=== PATIENT | male | born 1980 | race African-American/Black ===

== ENCOUNTER 2017-10-22 22:35 | Emergency (ER) | payer OTHER, SELFPAY ==
--- NOTE | 2017-10-22 23:49 | ER ---
Nurse's Notes [facility] Name: Lawrence Orellana Age: 37 yrs Sex: Male : 1980 Arrival Date: 10/22/2017 Time: 22:38 Bed 14 Private MD: Diagnosis: Periapical abscess without sinus;Dentalgia Presentation: 10/22 22:49 Presenting complaint: Patient states: left lower back tooth pain X3 weeks with ak1 increased pain today. Transition of care: patient was not received from another setting of care. Onset of symptoms is unknown. Risk Assessment: Do you want to hurt yourself or someone else? Patient reports no desire to harm self or others. Initial Sepsis Screen: Does the patient meet any 2 criteria? No. Patient's initial sepsis screen is negative. Does the patient have a suspected source of infection? No. Patient's initial sepsis screen is negative. Care prior to arrival: None. 22:49 Acuity: NEHA 4 ak1 22:49 Method Of Arrival: Ambulatory ak1 Triage Assessment: 22:50 General: Appears in no apparent distress. Behavior is calm, cooperative. Pain: ak1 Complains of pain in mouth. EENT: Dental caries noted in lower left third molar (#17) and lower left second molar (#18) Reports pain in lower left third molar and lower left second molar. Neuro: No deficits noted. Cardiovascular: No deficits noted. Respiratory: No deficits noted. GI: No signs and/or symptoms were reported involving the gastrointestinal system. : No signs and/or symptoms were reported regarding the genitourinary system. Derm: No signs and/or symptoms reported regarding the dermatologic system. Musculoskeletal: No signs and/or symptoms reported regarding the musculoskeletal system. Historical: - Allergies: 22:50 PENICILLINS; ak1 - Home Meds: 22:50 None [Active]; ak1 - PMHx: 22:50 None; ak1 - PSHx: 22:50 Ankle Surgery Left; Knee - Right; ak1 - Immunization history:: Adult Immunizations unknown. - Social history:: Smoking status: Patient/guardian denies using tobacco. - Ebola Screening: : No symptoms or risks identified at this time. Screenin:51 Abuse screen: Denies threats or abuse. Denies injuries from another. Nutritional ak1 screening: No deficits noted. Tuberculosis screening: No symptoms or risk factors identified. Fall Risk None identified. Assessment: 22:52 Reassessment: Patient appears in no apparent distress at this time. No changes from ak1 previously documented assessment. Patient is alert, oriented x 3, equal unlabored respirations, skin warm/dry/pink. see triage assessment. Vital Signs: 22:48 BP 124 / 72; Pulse 66; Resp 16; Temp 98.1(O); Pulse Ox 99% on R/A; Weight 92.08 kg (R); ak1 Height 5 ft. 7 in. (170.18 cm) (R); Pain 10/10; 22:48 Body Mass Index 31.79 (92.08 kg, 170.18 cm) ak1 ED Course: 22:38 Patient arrived in ED. tahir 22:44 Rey Alexander PA is PHCP. jrRolando 22:44 Best Quiroga MD is Attending Physician. jr8 22:48 Kayla Angel RN is Primary Nurse. ak1 22:49 Triage completed. ak1 22:50 Arm band placed on Patient placed in an exam room, on a stretcher, on pulse oximetry, ak1 Patient notified of wait time. 22:52 Patient has correct armband on for positive identification. Bed in low position. Call ak1 light in reach. Side rails up X 1. Pulse ox on. NIBP on. 23:57 No provider procedures requiring assistance completed. Patient did not have IV access ak1 during this emergency room visit. Administered Medications: 23:57 Drug: TORadol 60 mg Route: IM; Site: right deltoid; ak1 23:57 Follow up: Response: No adverse reaction ak1 Outcome: 23:48 Discharge ordered by . jr8 23:57 Discharged to home ambulatory. ak1 23:57 Condition: good 23:57 Discharge instructions given to patient, Instructed on discharge instructions, follow up and referral plans. no drinking with medication, no driving heavy equipment, medication usage, Demonstrated understanding of instructions, follow-up care, medications, Prescriptions given X 3. 23:58 Patient left the ED. ak1 Signatures: Shabnam Judge Josh, PA PA jrKayla Lugo, RN RN ak1
--- NOTE | 2017-10-22 23:49 | EDPHYS ---
Physician Documentation [facility] Name: Lawrence Orellana Age: 37 yrs Sex: Male : 1980 Arrival Date: 10/22/2017 Time: 22:38 Bed 14 Private MD: ED Physician Best Quiroga HPI: 10/22 23:45 This 37 yrs old Black Male presents to ER via Ambulatory with complaints of Toothache. jr8 23:45 The patient presents with pain. The problem is located in the upper left third molar jr8 (#16). Onset: The symptoms/episode began/occurred acutely, today. Duration: The symptoms are continuous. Modifying factors: The symptoms are alleviated by nothing, the symptoms are aggravated by air, chewing, cold fluids, talking. Associated signs and symptoms: The patient has no apparent associated signs or symptoms. Severity of symptoms: At their worst the symptoms were moderate, in the emergency department the symptoms are unchanged. The patient has not experienced similar symptoms in the past. The patient has not recently seen a physician. Historical: - Allergies: 22:50 PENICILLINS; ak1 - Home Meds: 22:50 None [Active]; ak1 - PMHx: 22:50 None; ak1 - PSHx: 22:50 Ankle Surgery Left; Knee - Right; ak1 - Immunization history:: Adult Immunizations unknown. - Social history:: Smoking status: Patient/guardian denies using tobacco. - Ebola Screening: : No symptoms or risks identified at this time. ROS: 23:45 Eyes: Negative for injury, pain, redness, and discharge, Neck: Negative for injury, jr8 pain, and swelling, Cardiovascular: Negative for chest pain, palpitations, and edema, Respiratory: Negative for shortness of breath, cough, wheezing, and pleuritic chest pain, Abdomen/GI: Negative for abdominal pain, nausea, vomiting, diarrhea, and constipation, Back: Negative for injury and pain, MS/Extremity: Negative for injury and deformity, Skin: Negative for injury, rash, and discoloration, Neuro: Negative for headache, weakness, numbness, tingling, and seizure. 23:45 ENT: Positive for dental pain, Negative for drainage from ear(s), ear pain, nasal discharge, rhinorrhea, sinus congestion, sore throat, difficulty swallowing, difficulty handling secretions, hoarseness. Exam: 23:44 Head/Face: Normocephalic, atraumatic. Eyes: Pupils equal round and reactive to light, jr8 extra-ocular motions intact. Lids and lashes normal. Conjunctiva and sclera are non-icteric and not injected. Cornea within normal limits. Periorbital areas with no swelling, redness, or edema. Neck: Trachea midline, no thyromegaly or masses palpated, and no cervical lymphadenopathy. Supple, full range of motion without nuchal rigidity, or vertebral point tenderness. No Meningismus. Cardiovascular: Regular rate and rhythm with a normal S1 and S2. No gallops, murmurs, or rubs. Normal PMI, no JVD. No pulse deficits. Respiratory: Lungs have equal breath sounds bilaterally, clear to auscultation and percussion. No rales, rhonchi or wheezes noted. No increased work of breathing, no retractions or nasal flaring. Abdomen/GI: Soft, non-tender, with normal bowel sounds. No distension or tympany. No guarding or rebound. No evidence of tenderness throughout. Skin: Warm, dry with normal turgor. Normal color with no rashes, no lesions, and no evidence of cellulitis. MS/ Extremity: Pulses equal, no cyanosis. Neurovascular intact. Full, normal range of motion. Neuro: Awake and alert, GCS 15, oriented to person, place, time, and situation. Cranial nerves II-XII grossly intact. Motor strength 5/5 in all extremities. Sensory grossly intact. Cerebellar exam normal. Normal gait. 23:44 ENT: Exam is negative for earache, ear discharge, TM abnormalities, nasal discharge, Mouth: Lips: moist, Oral mucosa: pink and intact, moist, Gums: pink, Tongue: is moist, Posterior pharynx: Airway: patent, Tonsils: are normal in appearance, Uvula: midline, swelling, is not appreciated, Dental exam: pain, that is moderate, specifically in the upper left third molar (#16). Vital Signs: 22:48 BP 124 / 72; Pulse 66; Resp 16; Temp 98.1(O); Pulse Ox 99% on R/A; Weight 92.08 kg (R); ak1 Height 5 ft. 7 in. (170.18 cm) (R); Pain 10/10; 22:48 Body Mass Index 31.79 (92.08 kg, 170.18 cm) ak1 MDM: 22:44 Patient medically screened. jr8 23:45 Data reviewed: vital signs, nurses notes, and as a result, I will discharge patient. jr8 Data interpreted: Pulse oximetry: on room air is 99 %. Interpretation: normal. Counseling: I had a detailed discussion with the patient and/or guardian regarding: the historical points, exam findings, and any diagnostic results supporting the discharge/admit diagnosis, the need for outpatient follow up, a dentist, to return to the emergency department if symptoms worsen or persist or if there are any questions or concerns that arise at home. Administered Medications: 23:57 Drug: TORadol 60 mg Route: IM; Site: right deltoid; ak1 23:57 Follow up: Response: No adverse reaction ak1 Disposition: 10/23 00:13 Co-signature as Attending Physician, Best Quiroga MD I agree with the assessment and kdr plan of care. Disposition: 10/22/17 23:48 Discharged to Home. Impression: Periapical abscess without sinus, Dentalgia. - Condition is Stable. - Discharge Instructions: Dental Abscess, Dental Pain. - Prescriptions for Clindamycin HCl 300 mg Oral Capsule - take 1 capsule by ORAL route every 6 hours for 10 days; 40 capsule. Ibuprofen 800 mg Oral Tablet - take 1 tablet by ORAL route every 12 hours As needed take with food; 20 tablet. Tylenol- Codeine #3 300-30 mg Oral Tablet - take 2 tablet by ORAL route every 6 hours As needed; 30 tablet. - Medication Reconciliation Form, Thank You Letter, Antibiotic Education, Prescription Opioid Use, Work release form form. - Follow up: Private Physician; When: 2 - 3 days; Reason: Recheck today's complaints, Continuance of care, Re-evaluation by your physician. - Problem is new. - Symptoms have improved. Signatures: Best Quiroga MD MD kdr Roszak, Josh, PA PA jr8 Kayla Angel RN RN ak1 Corrections: (The following items were deleted from the chart) 10/22 23:58 23:48 10/22/2017 23:48 Discharged to Home. Impression: Periapical abscess without ak1 sinus; Dentalgia. Condition is Stable. Forms are Medication Reconciliation Form, Thank You Letter, Antibiotic Education, Prescription Opioid Use. Follow up: Private Physician; When: 2 - 3 days; Reason: Recheck today's complaints, Continuance of care, Re-evaluation by your physician. Problem is new. Symptoms have improved. jr8
[2017-10-22] MEDS ORDERED: KETOROLAC 30 MG/ML INJ ONE (23:57)
[2017-10-23 00:30] VITALS: BP 124/72; TEMP 98.1; O2SAT 99
== END 2017-10-22 23:58 | disposition home or self-care (01) ==
LOC: ER 22:35
DX: K04.7 Periapical abscess without sinus (principal); Z88.0 Allergy status to penicillin
CPT/HCPCS: 96372; 99283

== ENCOUNTER 2018-03-21 23:28 | Emergency (ER) | payer BC, SELFPAY ==
--- OUTSIDE RECORDS SUMMARY | 2018-03-21 23:58 | XMS REPORT ---
:1980 [facility] Address [address] [place] [address] Dr. Talavera [address] [place] [id number] Care Team Providers Name Role Phone Unavailable Unavailable Unavailable Problems This patient has no known problems. Allergies, Adverse Reactions, Alerts This patient has no known allergies or adverse reactions. Medications This patient has no known medications.
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
[2018-03-22 02:09] VITALS: BP 121/63; TEMP 97.6; O2SAT 98
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
== END 2018-03-22 01:26 | disposition home or self-care (01) ==
LOC: ER 23:28
DX: S09.90XA Unspecified injury of head, initial encounter (principal); V40.5XXA Car driver injured in collision with pedestrian or animal in traffic accident, initial encounter; Z88.0 Allergy status to penicillin
CPT/HCPCS: 70450; 72125; 99283

== ENCOUNTER 2018-07-27 02:21 | Emergency (ER) | payer BC, SELFPAY ==
--- OUTSIDE RECORDS SUMMARY | 2018-07-27 02:24 | XMS REPORT ---
:1980 [facility] Address [address] [place] [address] Dr. Talavera [address] [place] [id number] Care Team Providers Name Role Phone Unavailable Unavailable Unavailable Problems This patient has no known problems. Allergies, Adverse Reactions, Alerts This patient has no known allergies or adverse reactions. Medications This patient has no known medications.
--- NOTE | 2018-07-27 03:14 | EDPHYS ---
Physician Documentation [facility] Name: Lawrence Orellana Age: 38 yrs Sex: Male : 1980 Arrival Date: 07/27/2018 Time: 02:23 Bed 5 Private MD: ED Physician Shlomo Munoz HPI: 07/27 03:14 This 38 yrs old Black Male presents to ER via Ambulatory with complaints of Back Pain. gs 03:17 The patient presents with pain that is acute. The symptoms are located in the left gs scapular area and right scapular area. Onset: The symptoms/episode began/occurred 4 day(s) ago. The pain does not radiate. Associated signs and symptoms: Pertinent negatives: incontinence, numbness. The problem was sustained when lifting weights. Modifying factors: the patient symptoms are aggravated by movement. Severity of symptoms: At their worst the symptoms were moderate, in the emergency department the symptoms are unchanged. The patient has experienced similar episodes in the past, a few times. Historical: - Allergies: 02:33 PENICILLINS; ak1 - Home Meds: 02:33 None [Active]; ak1 - PMHx: 02:33 None; ak1 - PSHx: 02:33 left ankle sx; ak1 - Immunization history:: Adult Immunizations unknown. - Social history:: Smoking status: Patient/guardian denies using tobacco. - Ebola Screening: : No symptoms or risks identified at this time. ROS: 03:17 All other systems are negative. gs Exam: 03:17 Head/Face: Normocephalic, atraumatic. Eyes: Pupils equal round and reactive to light, gs extra-ocular motions intact. Lids and lashes normal. Conjunctiva and sclera are non-icteric and not injected. Cornea within normal limits. Periorbital areas with no swelling, redness, or edema. ENT: Nares patent. No nasal discharge, no septal abnormalities noted. Tympanic membranes are normal and external auditory canals are clear. Oropharynx with no redness, swelling, or masses, exudates, or evidence of obstruction, uvula midline. Mucous membranes moist. Neck: Trachea midline, no thyromegaly or masses palpated, and no cervical lymphadenopathy. Supple, full range of motion without nuchal rigidity, or vertebral point tenderness. No Meningismus. Chest/axilla: Normal chest wall appearance and motion. Nontender with no deformity. No lesions are appreciated. Cardiovascular: Regular rate and rhythm with a normal S1 and S2. No gallops, murmurs, or rubs. Normal PMI, no JVD. No pulse deficits. Respiratory: Lungs have equal breath sounds bilaterally, clear to auscultation and percussion. No rales, rhonchi or wheezes noted. No increased work of breathing, no retractions or nasal flaring. Abdomen/GI: Soft, non-tender, with normal bowel sounds. No distension or tympany. No guarding or rebound. No evidence of tenderness throughout. Skin: Warm, dry with normal turgor. Normal color with no rashes, no lesions, and no evidence of cellulitis. MS/ Extremity: Pulses equal, no cyanosis. Neurovascular intact. Full, normal range of motion. Neuro: Awake and alert, GCS 15, oriented to person, place, time, and situation. Cranial nerves II-XII grossly intact. Motor strength 5/5 in all extremities. Sensory grossly intact. Cerebellar exam normal. Normal gait. 03:17 Constitutional: The patient appears alert, awake. 03:17 Back: pain, that is mild, of the left trapezius and right trapezius, ROM is normal. Vital Signs: 02:31 BP 122 / 84; Pulse 69; Resp 16; Temp 98.1; Pulse Ox 99% on R/A; Weight 94.8 kg (R); ak1 Height 5 ft. 8 in. (172.72 cm) (R); Pain 10/10; 02:31 Body Mass Index 31.78 (94.80 kg, 172.72 cm) ak1 MDM: 02:36 Patient medically screened. 03:17 Differential diagnosis: sprain. Data reviewed: vital signs, nurses notes. Counseling: I gs had a detailed discussion with the patient and/or guardian regarding: the historical points, exam findings, and any diagnostic results supporting the discharge/admit diagnosis. Administered Medications: No medications were administered Disposition: 07/27/18 03:13 Discharged to Home. Impression: Encounter for screening, unspecified. - Condition is Stable. - Medication Reconciliation Form, Thank You Letter, Antibiotic Education, Prescription Opioid Use form. - Follow up: Private Physician; When: 2 - 3 days; Reason: Re-evaluation by your physician. Signatures: Beba Zhao RN RN lp1 Kayla Angel RN RN ak1 Shlomo Munoz MD MD gs Corrections: (The following items were deleted from the chart) 03:25 03:13 07/27/2018 03:13 Discharged to Home. Impression: Encounter for screening, lp1 unspecified. Condition is Stable. Forms are Medication Reconciliation Form, Thank You Letter, Antibiotic Education, Prescription Opioid Use. Follow up: Private Physician; When: 2 - 3 days; Reason: Re-evaluation by your physician. gs
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
[2018-07-27 03:33] VITALS: BP 122/84; TEMP 98.1; O2SAT 99
== END 2018-07-27 03:25 | disposition home or self-care (01) ==
LOC: ER 02:21
DX: M54.6 Pain in thoracic spine (principal); Z13.9 Encounter for screening, unspecified; Z88.0 Allergy status to penicillin
CPT/HCPCS: 99282

== ENCOUNTER 2018-11-25 03:22 | Emergency (ER) | payer SELFPAY ==
[2018-11-25] MEDS ORDERED: TETRACAINE HCL 0.5% 4ML OPTH ONE (03:30)
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
[2018-11-25 04:30] VITALS: BP 103/76; TEMP 97.4; O2SAT 100
== END 2018-11-25 04:07 | disposition home or self-care (01) ==
LOC: ER 03:22
DX: H57.13 Ocular pain, bilateral (principal); W89.0XXA Exposure to welding light (arc), initial encounter; Z88.0 Allergy status to penicillin
CPT/HCPCS: 99284

== ENCOUNTER 2020-03-27 14:25 | Emergency (ER) | payer SELFPAY ==
--- NOTE | 2020-03-27 20:29 | EDPHYS ---
Physician Documentation [facility] Name: Lawrence Orellana Age: 40 yrs Sex: Male : 1980 Arrival Date: 03/27/2020 Time: 14:27 Bed 30 Private MD: ED Physician Maynor Carmona HPI: 03/27 20:26 This 40 yrs old Black Male presents to ER via Ambulatory with complaints of Poison Allison. rn 20:26 The patient's rash thought to be caused by Dermatitis. The rash is located on the face, rn chest, abdomen, right arm and left arm. The rash can be described as urticarial. Onset: The symptoms/episode began/occurred 2 week(s) ago. Severity of symptoms: At their worst the symptoms were moderate in the emergency department the symptoms have improved. The patient has not experienced similar symptoms in the past. The patient has been recently seen by a physician:. Reports seen and treated for poison allison rash 2 weeks ago, given shot of steroids that helped but did not resolve, still itching and rash present. No sob or chest pain. . Historical: - Allergies: 14:49 PENICILLINS; jd3 - Home Meds: 14:49 None [Active]; jd3 - PMHx: 14:49 None; jd3 - PSHx: 14:49 left ankle sx; jd3 - Immunization history:: Adult Immunizations up to date. - Social history:: Smoking status: Patient denies any tobacco usage or history of. - Family history:: not pertinent. - Hospitalizations: : No recent hospitalization is reported. ROS: 20:26 Constitutional: Negative for fever, chills, and weight loss, Eyes: Negative for injury, rn pain, redness, and discharge, Neck: Negative for injury, pain, and swelling, Cardiovascular: Negative for chest pain, palpitations, and edema, Respiratory: Negative for shortness of breath, cough, wheezing, and pleuritic chest pain, Abdomen/GI: Negative for abdominal pain, nausea, vomiting, diarrhea, and constipation, Back: Negative for injury and pain, MS/Extremity: Negative for injury and deformity, Skin: + rash and itching Neuro: Negative for headache, weakness, numbness, tingling, and seizure. Exam: 20:26 Constitutional: This is a well developed, well nourished patient who is awake, alert, rn and in no acute distress. Head/Face: Normocephalic, atraumatic. ENT: No intraoral lesions Cardiovascular: Regular rate and rhythm. No pulse deficits. Respiratory: No increased work of breathing, no retractions or nasal flaring. Skin: Warm, dry, + very mild urticarial lesions lower face and neck/arms/torso MS/ Extremity: Pulses equal, no cyanosis. Neurovascular intact. Full, normal range of motion. Equal circumference. Neuro: Awake and alert, GCS 15, oriented to person, place, time, and situation. Cranial nerves II-XII grossly intact. Motor strength 5/5 in all extremities. Sensory grossly intact. Cerebellar exam normal. Normal gait. Vital Signs: 14:49 BP 138 / 96; Pulse 93; Resp 16 S; Temp 98.0(TE); Pulse Ox 99% on R/A; Weight 104.33 kg jd3 (R); Height 5 ft. 8 in. (172.72 cm) (R); Pain 0/10; 14:49 Body Mass Index 34.97 (104.33 kg, 172.72 cm) jd3 MDM: 20:20 Patient medically screened. rn 20:26 Differential diagnosis: poison allison dermatitis. Data reviewed: vital signs, nurses rn notes, and as a result, I will discharge patient. Counseling: I had a detailed discussion with the patient and/or guardian regarding: the historical points, exam findings, and any diagnostic results supporting the discharge/admit diagnosis, the need for outpatient follow up, to return to the emergency department if symptoms worsen or persist or if there are any questions or concerns that arise at home. Special discussion: I discussed with the patient/guardian in detail that at this point there is no indication for admission to the hospital. It is understood, however, that if the symptoms persist or worsen the patient needs to return immediately for re-evaluation. Administered Medications: 20:32 Drug: SOLU-Medrol 125 mg Route: IM; Site: right gluteus; tl1 20:38 Follow up: Response: Medication administered at discharge. tl1 20:32 Drug: hydrOXYzine 50 mg Route: PO; tl1 20:38 Follow up: Response: Medication administered at discharge. tl1 Disposition: 03/27/20 20:29 Discharged to Home. Impression: Dermatitis, unspecified. - Condition is Stable. - Discharge Instructions: Poison Allison Dermatitis, Rash. - Prescriptions for Prednisone 20 mg Oral Tablet - take 1 tablet by ORAL route as directed for 10 days Take 3 tablets by mouth daily for 5 days, then 2 tablets by mouth daily for 3 days, then 1 tablet by mouth daily for 2 days, total of 10 days.; 23 tablet. Hydroxyzine HCl 50 mg Oral Tablet - take 1 tablet by ORAL route every 8 hours As needed; 20 tablet. - Medication Reconciliation Form, Thank You Letter, Antibiotic Education, Prescription Opioid Use form. - Follow up: Private Physician; When: As needed; Reason: Recheck today's complaints, Re-evaluation by your physician. - Problem is new. - Symptoms have improved. Signatures: Maynor Carmona MD MD rn Lasagna, Tonya, RN RN tl1 Kodak Alva RN RN jd3 Corrections: (The following items were deleted from the chart) 20:41 20:29 03/27/2020 20:29 Discharged to Home. Impression: Dermatitis, unspecified. tl1 Condition is Stable. Forms are Medication Reconciliation Form, Thank You Letter, Antibiotic Education, Prescription Opioid Use. Follow up: Private Physician; When: As needed; Reason: Recheck today's complaints, Re-evaluation by your physician. Problem is new. Symptoms have improved. rn
--- NOTE | 2020-03-27 20:29 | ER ---
Nurse's Notes [facility] Name: Lawrence Orellana Age: 40 yrs Sex: Male : 1980 Arrival Date: 03/27/2020 Time: 14:27 Bed 30 Private MD: Diagnosis: Dermatitis, unspecified Presentation: 03/27 14:47 Chief complaint: Patient states: "I had gotten into some poison oak and was given some jd3 prednisone, but I think I might be allergic to the poison oak because my hands are swollen and it is itching still.". Coronavirus screen: At this time, the client does not indicate any symptoms associated with coronavirus-19. Ebola Screen: Patient negative for fever greater than or equal to 101.5 degrees Fahrenheit, and additional compatible Ebola Virus Disease symptoms. Initial Sepsis Screen: Does the patient meet any 2 criteria? No. Patient's initial sepsis screen is negative. Does the patient have a suspected source of infection? No. Patient's initial sepsis screen is negative. Risk Assessment: Do you want to hurt yourself or someone else? Patient reports no desire to harm self or others. Onset of symptoms was March 21, 2020. 14:47 Method Of Arrival: Ambulatory jd3 14:47 Acuity: NEHA 4 jd3 Historical: - Allergies: 14:49 PENICILLINS; jd3 - Home Meds: 14:49 None [Active]; jd3 - PMHx: 14:49 None; jd3 - PSHx: 14:49 left ankle sx; jd3 - Immunization history:: Adult Immunizations up to date. - Social history:: Smoking status: Patient denies any tobacco usage or history of. - Family history:: not pertinent. - Hospitalizations: : No recent hospitalization is reported. Screenin:26 Abuse screen: Denies threats or abuse. Denies injuries from another. Nutritional sg screening: No deficits noted. Tuberculosis screening: No symptoms or risk factors identified. Fall Risk None identified. Assessment: 20:25 General: Appears in no apparent distress. comfortable, Behavior is calm, cooperative, sg appropriate for age. Pain: Denies pain. Neuro: No deficits noted. Cardiovascular: Reports None. Respiratory: Airway is patent Trachea midline. GI: No signs and/or symptoms were reported involving the gastrointestinal system. : No signs and/or symptoms were reported regarding the genitourinary system. EENT: No signs and/or symptoms were reported regarding the EENT system. Derm: Rash noted that is urticaria, on face, chest, right arm, left arm and neck. Vital Signs: 14:49 BP 138 / 96; Pulse 93; Resp 16 S; Temp 98.0(TE); Pulse Ox 99% on R/A; Weight 104.33 kg jd3 (R); Height 5 ft. 8 in. (172.72 cm) (R); Pain 0/10; 14:49 Body Mass Index 34.97 (104.33 kg, 172.72 cm) jd3 ED Course: 14:27 Patient arrived in ED. rg4 14:48 Triage completed. jd3 14:50 Arm band placed on. jd3 20:20 Maynor Carmona MD is Attending Physician. rn 20:26 No provider procedures requiring assistance completed. Patient did not have IV access sg during this emergency room visit. 20:40 Kailey Kingsley RN is Primary Nurse. tl1 20:40 Patient has correct armband on for positive identification. tl1 Administered Medications: 20:32 Drug: SOLU-Medrol 125 mg Route: IM; Site: right gluteus; tl1 20:38 Follow up: Response: Medication administered at discharge. tl1 20:32 Drug: hydrOXYzine 50 mg Route: PO; tl1 20:38 Follow up: Response: Medication administered at discharge. tl1 Outcome: 20:29 Discharge ordered by . rn 20:40 Discharged to home ambulatory. tl1 20:40 Condition: good 20:40 Discharge instructions given to patient, Instructed on discharge instructions, follow up and referral plans. medication usage, Demonstrated understanding of instructions, follow-up care, medications, Prescriptions given X 2. 20:41 Patient left the ED. tl1 Signatures: Indra Tamez RN RN Maynor Carmona MD MD rn Lasagna, Tonya, RN RN tl1 Ana Blanco rg4 Kodak Alva RN RN jd3 Corrections: (The following items were deleted from the chart) 14:49 14:47 Chief complaint: Patient states: "I had gotten into some poison oak and was given jd3 some prednisone, but I think I might be allergic because my hands are swollen and it is itching." jd3 14:50 14:47 Acuity: NEHA 3 jd3 jd3
[2020-03-27] MEDS ORDERED: METHYLPREDNISOLONE 125 MG INJ ONE (20:45)
[2020-03-27] MEDS ORDERED: hydrOXYzine HCL 25 MG TAB ONE (20:45)
[2020-03-27 20:47] VITALS: BP 138/96; TEMP 98; O2SAT 99
== END 2020-03-27 20:41 | disposition home or self-care (01) ==
LOC: ER 14:25
DX: L30.9 Dermatitis, unspecified (principal)
CPT/HCPCS: 96372; 99283; J2930

== ENCOUNTER 2020-07-30 20:44 | Emergency (ER) | payer SELFPAY ==
--- OUTSIDE RECORDS SUMMARY | 2020-07-30 20:47 | XMS REPORT | Continuity of Care Document ---
:1980 Author Organization [facility] t Address [address] [place] [address] Dr. Yanes. [address] [place] [id number] Care Team Providers Name Role Phone Ary CHILDERS Attending Clinician Problems This patient has no known problems. Allergies, Adverse Reactions, Alerts This patient has no known allergies or adverse reactions. Medications This patient has no known medications. Procedures This patient has no known procedures. Encounters Start End Encounter Admission Attending Care Care Encounter Source Date/Time Date/Time Type Type Clinicians Facility Department ID 2020-07-08 2020-07-08 Emergency [facility] [id number] 10:49:00 12:02:00 Michelle Son [id number] [place] [id number] [place] [id number] Results This patient has no known results.
[2020-07-30] MEDS ORDERED: HYDROCODONE/APAP 10/325 TAB ONE (21:36)
--- NOTE | 2020-07-30 22:45 | ER ---
Nurse's Notes [facility] Name: Lawrence Orellana Age: 40 yrs Sex: Male : 1980 Arrival Date: 07/30/2020 Time: 20:46 Bed 13 Private MD: Diagnosis: Low back pain Presentation: 07/30 21:04 Chief complaint: Patient states: I hurt my back 3 weeks ago and it's getting worse. ca1 It's my lower back. Coronavirus screen: Client denies travel out of the [place] in the last 14 days. At this time, the client does not indicate any symptoms associated with coronavirus-19. Ebola Screen: Patient negative for fever greater than or equal to 101.5 degrees Fahrenheit, and additional compatible Ebola Virus Disease symptoms Patient denies exposure to infectious person. Patient denies travel to an Ebola-affected area in the 21 days before illness onset. No symptoms or risks identified at this time. Initial Sepsis Screen: Does the patient meet any 2 criteria? No. Patient's initial sepsis screen is negative. Does the patient have a suspected source of infection? No. Patient's initial sepsis screen is negative. Risk Assessment: Do you want to hurt yourself or someone else? Patient reports no desire to harm self or others. Onset of symptoms was July 30, 2020. 21:04 Method Of Arrival: Ambulatory ca1 21:04 Acuity: NEHA 4 ca1 Historical: - Allergies: 21:06 PENICILLINS; ca1 - Home Meds: 21:06 None [Active]; ca1 - PMHx: 21:06 None; ca1 - PSHx: 21:06 left ankle sx; ca1 - Immunization history:: Client reports having NOT received the Covid vaccine. Flu vaccine is not up to date. - Social history:: Smoking status: Patient denies any tobacco usage or history of. Patient uses alcohol, occasionally. Patient/guardian denies using street drugs. Screenin:20 Abuse screen: Denies threats or abuse. Denies injuries from another. Nutritional rr5 screening: No deficits noted. Tuberculosis screening: No symptoms or risk factors identified. Fall Risk None identified. Total Boo Fall Scale indicates No Risk (0-24 pts). Assessment: 21:20 General: Appears in no apparent distress. uncomfortable, Behavior is calm, cooperative, rr5 appropriate for age. 21:20 Pain: Complains of pain in back Pain currently is 10 out of 10 on a pain scale. Quality rr5 of pain is described as aching, Pain began gradually, Is intermittent. Neuro: Level of Consciousness is awake, alert, obeys commands, Oriented to person, place, time. Cardiovascular: Capillary refill < 3 seconds Patient's skin is warm and dry. Respiratory: Airway is patent Respiratory effort is even, unlabored, Respiratory pattern is regular, symmetrical. Musculoskeletal: Capillary refill < 3 seconds, Reports pain in back. 22:55 Reassessment: Patient appears in no apparent distress at this time. Patient is alert, rr5 oriented x 3, equal unlabored respirations, skin warm/dry/pink. discharge instruction given and explained without complaints made Patient states symptoms have improved. Vital Signs: 21:04 BP 142 / 79; Pulse 73; Resp 16 S; Temp 97.4(TE); Pulse Ox 99% on R/A; Weight 108.86 kg ca1 (R); Height 5 ft. 8 in. (172.72 cm) (R); Pain 10/10; 22:55 BP 149 / 83; Pulse 75; Resp 19; Pulse Ox 98% ; rr5 21:04 Body Mass Index 36.49 (108.86 kg, 172.72 cm) ca1 ED Course: 20:46 Patient arrived in ED. bp1 21:06 Triage completed. ca1 21:06 Arm band placed on right wrist. ca1 21:10 [facility] kb 21:10 Walter Newell MD is Attending Physician. kb 21:10 Jeff Gomez, REZA is Primary Nurse. rr5 21:37 CT Lumbar Spine Wo Con In Process Unspecified. EDMS 21:51 Patient has correct armband on for positive identification. Bed in low position. rr5 21:51 No provider procedures requiring assistance completed. rr5 22:56 Patient did not have IV access during this emergency room visit. rr5 Administered Medications: 21:16 Drug: [place] (HYDROcodone-acetaminophen) 10 mg-325 mg 1 tabs {Note: rass 0.} Route: PO; rr5 22:20 Follow up: Response: No adverse reaction; Pain is decreased; RASS: Alert and Calm (0) rr5 Outcome: 22:44 Discharge ordered by . kb 22:56 Discharged to home ambulatory. rr5 22:56 Condition: stable 22:56 Discharge instructions given to patient, Instructed on discharge instructions, follow up and referral plans. medication usage, Demonstrated understanding of instructions, follow-up care, medications, Prescriptions given X 2. 22:56 Patient left the ED. rr5 Signatures: Dispatcher [employer] EDMS Carla Bateman, ALVARADO-Jeff Wesley RN RN rr5 Anu Mo RN RN ca1 [facility]
--- NOTE | 2020-07-30 22:45 | EDPHYS ---
Physician Documentation [facility] Name: Lawrence Orellana Age: 40 yrs Sex: Male : 1980 Arrival Date: 07/30/2020 Time: 20:46 Bed 13 Private MD: ED Physician Walter Newell HPI: 07/31 00:27 This 40 yrs old Black Male presents to ER via Ambulatory with complaints of Back Pain, kb Back Injury. 00:27 The patient presents with pain that is acute. The symptoms are located in the low back. kb Onset: The symptoms/episode began/occurred 3 week(s) ago. The pain does not radiate. Associated signs and symptoms: The patient has no apparent associated signs or symptoms. The problem was sustained when lifting. Modifying factors: The patient symptoms are alleviated by nothing, the patient symptoms are aggravated by any movement. Severity of symptoms: At their worst the symptoms were moderate, in the emergency department the symptoms are unchanged. The patient has not experienced similar symptoms in the past. The patient has not recently seen a physician. 00:28 Pt reports low back pain that started 3 weeks ago while working. States the pain hasn't kb gotten any better. Historical: - Allergies: 07/30 21:06 PENICILLINS; ca1 - Home Meds: 21:06 None [Active]; ca1 - PMHx: 21:06 None; ca1 - PSHx: 21:06 left ankle sx; ca1 - Immunization history:: Client reports having NOT received the Covid vaccine. Flu vaccine is not up to date. - Social history:: Smoking status: Patient denies any tobacco usage or history of. Patient uses alcohol, occasionally. Patient/guardian denies using street drugs. ROS: 07/31 00:26 Constitutional: Negative for fever, chills, and weight loss. kb Back: Positive for pain at rest, pain with movement, of the low back area. All other systems are negative. Exam: 00:26 Constitutional: This is a well developed, well nourished patient who is awake, alert, kb and in no acute distress. Head/Face: Normocephalic, atraumatic. ENT: Moist Mucous membranes Respiratory: Respirations even and unlabored. No increased work of breathing, no retractions or nasal flaring. Abdomen/GI: Soft, non-tender. No distention Skin: Warm, dry with normal turgor. Normal color. MS/ Extremity: Pulses equal, no cyanosis. Neurovascular intact. Full, normal range of motion. Neuro: Awake and alert, GCS 15, oriented to person, place, time, and situation. Moves all extremities. Normal gait. Psych: Awake, alert, with orientation to person, place and time. Behavior, mood, and affect are within normal limits. 00:26 Back: pain, that is mild, of the lumbar area, left low back and right low back, ROM is normal, normal spinal alignment noted, vertebral tenderness, is appreciated at L4 and L5. 00:28 Neuro: Exam negative for kb Vital Signs: 07/30 21:04 BP 142 / 79; Pulse 73; Resp 16 S; Temp 97.4(TE); Pulse Ox 99% on R/A; Weight 108.86 kg ca1 (R); Height 5 ft. 8 in. (172.72 cm) (R); Pain 10/10; 22:55 BP 149 / 83; Pulse 75; Resp 19; Pulse Ox 98% ; rr5 21:04 Body Mass Index 36.49 (108.86 kg, 172.72 cm) ca1 MDM: 21:10 Patient medically screened. kb 07/31 00:26 Data reviewed: vital signs, nurses notes. Data interpreted: Pulse oximetry: on room air kb is 98 %. Interpretation: normal. Counseling: I had a detailed discussion with the patient and/or guardian regarding: the historical points, exam findings, and any diagnostic results supporting the discharge/admit diagnosis, radiology results, the need for outpatient follow up, a family practitioner, to return to the emergency department if symptoms worsen or persist or if there are any questions or concerns that arise at home. 07/30 21:13 Order name: CT Lumbar Spine Wo Con kb Administered Medications: 07/30 21:16 Drug: [place] (HYDROcodone-acetaminophen) 10 mg-325 mg 1 tabs {Note: rass 0.} Route: PO; rr5 22:20 Follow up: Response: No adverse reaction; Pain is decreased; RASS: Alert and Calm (0) rr5 Disposition: 07/31 02:02 Co-signature as Attending Physician, Walter Newell MD. pkl Disposition: 07/30/20 22:44 Discharged to Home. Impression: Low back pain. - Condition is Stable. - Discharge Instructions: Musculoskeletal Pain, Back Injury Prevention, [id number], Back Pain, Adult, Nzig-[id number]-Nzok. - Prescriptions for Cyclobenzaprine 10 mg Oral Tablet - take 1 tablet by ORAL route every 8 hours As needed; 21 tablet. Diclofenac Sodium 75 mg Oral Tablet, Delayed Release (E.C.) - take 1 tablet by ORAL route 2 times per day As needed; 30 tablet. - Medication Reconciliation Form, Thank You Letter, Antibiotic Education, Prescription Opioid Use form. - Follow up: Emergency Department; When: As needed; Reason: Worsening of condition. Follow up: Private Physician; When: 2 - 3 days; Reason: Recheck today's complaints, Continuance of care, Re-evaluation by your physician. Signatures: Dispatcher [employer] EDCarla Del Rio FNP-C FNP-Walter Sanders MD MD pkl Roque, Raymond RN RN rr5 Anu Mo RN RN ca1 Corrections: (The following items were deleted from the chart) 07/30 22:56 22:44 07/30/2020 22:44 Discharged to Home. Impression: Low back pain. Condition is rr5 Stable. Forms are Medication Reconciliation Form, Thank You Letter, Antibiotic Education, Prescription Opioid Use. Follow up: Emergency Department; When: As needed; Reason: Worsening of condition. Follow up: Private Physician; When: 2 - 3 days; Reason: Recheck today's complaints, Continuance of care, Re-evaluation by your physician. kb 07/31 00:27 00:26 Back: pain, that is mild, of the lumbar area, left low back and right low back, kb ROM is normal, normal spinal alignment noted, kb
[2020-07-30 23:36] VITALS: TEMP 97.4
[2020-07-30 23:37] VITALS: BP 149/83; O2SAT 98
--- NOTE | 2020-07-31 10:58 | RAD REPORT ---
EXAM DESCRIPTION: CTSpine Lumbar Wo Con07/31/2020 6:22 am CLINICAL HISTORY: 40 years Male LOWER BACK PAIN COMPARISON: None TECHNIQUE: Multiplanar imaging through the lumbar spine without contrast. This exam was performed according to our departmental dose-optimization program, which includes automated exposure control, a djustment of the mA and/or kV according to patient size and/or use of iterative reconstruction techni que. DLP: 793 mGy*cm FINDINGS: No fracture. No subluxation. Straightening of lumbar lordosis. Disc spaces are preserved. Paraspinal soft tissues are unremarkable. Visualized abdomen demonstrates no acute abnormality. IMPRESSION: No acute abnormality. No fracture or subluxation. Straightening of lumbar lordosis which may be due to muscle spasm. Electronically signed by: Eleazar Apodaca DO 07/30/2020 10:09 PM CDT Due to temporary technical issues with the PACS/Fluency reporting system, reports are being signed by the in house radiologist without review as a courtesy to ensure prompt reporting. The interpreting r adiologist is fully responsible for the content of the report.
== END 2020-07-30 22:56 | disposition home or self-care (01) ==
LOC: ER 20:44
DX: M54.5 Low back pain (principal)
CPT/HCPCS: 72131; 99283

== ENCOUNTER 2020-09-03 10:43 | Emergency (ER) | payer SELFPAY ==
--- OUTSIDE RECORDS SUMMARY | 2020-09-03 10:46 | XMS REPORT | Continuity of Care Document ---
:1980 Author Organization [facility] t Address [address] [place] [address] Dr. Yanes. [address] [place] [address] Care Team Providers Name Role Phone Ary [...] Clinicians Facility Department ID 2020-07-08 2020-07-08 Emergency Ary [facility] [id number] 10:49:00 12:02:00 Michelle Son [id number] [place] [id number] [place] [id number] Results This patient has no known results.
[2020-09-03] MEDS ORDERED: ACETAMINOPHEN 500 MG TAB ONE (11:17)
--- NOTE | 2020-09-04 17:21 | EDPHYS ---
Physician Documentation [facility] Name: Lawrence Orellana Age: 40 yrs Sex: Male : 1980 Arrival Date: 09/03/2020 Time: 10:47 Bed Treatment Private MD: ED Physician Maynor Carmona HPI: 09/03 14:57 This 40 yrs old Black Male presents to ER via Ambulatory with complaints of Cold kb Symptoms. 14:57 The patient or guardian reports cough, that is intermittent, described as mild, flu kb symptoms, low-grade fever, myalgias. Onset: The symptoms/episode began/occurred 2 day(s) ago. Severity of symptoms: At their worst the symptoms were mild, moderate, in the emergency department the symptoms are unchanged. Modifying factors: The symptoms are alleviated by nothing, the symptoms are aggravated by nothing. Associated signs and symptoms: Pertinent positives: fever, Pertinent negatives: chest pain, diarrhea, ear ache, nausea, rhinorrhea, sore throat, vomiting. The patient has not experienced similar symptoms in the past. The patient has not recently seen a physician. Historical: - Allergies: 10:52 PENICILLINS; vg1 - Home Meds: 10:52 None [Active]; vg1 - PMHx: 10:52 None; vg1 - Immunization history:: Adult Immunizations up to date. - Social history:: Smoking status: Patient denies any tobacco usage or history of. ROS: 15:00 Abdomen/GI: Negative for abdominal pain, nausea, vomiting, diarrhea, and constipation. kb 15:00 Constitutional: Positive for body aches, chills, fatigue, fever, malaise. 15:00 Respiratory: Positive for cough, Negative for dyspnea on exertion, hemoptysis, orthopnea, pleurisy, shortness of breath, sputum production, wheezing. 15:00 All other systems are negative. Exam: 15:00 Constitutional: This is a well developed, well nourished patient who is awake, alert, kb and in no acute distress. Head/Face: Normocephalic, atraumatic. ENT: Moist Mucous membranes Cardiovascular: Regular rate and rhythm with a normal S1 and S2. No gallops, murmurs, or rubs. No pulse deficits. Respiratory: Respirations even and unlabored. No increased work of breathing, no retractions or nasal flaring. Abdomen/GI: Soft, non-tender. No distention Skin: Warm, dry with normal turgor. Normal color. MS/ Extremity: Pulses equal, no cyanosis. Neurovascular intact. Full, normal range of motion. Neuro: Awake and alert, GCS 15, oriented to person, place, time, and situation. Moves all extremities. Normal gait. Psych: Awake, alert, with orientation to person, place and time. Behavior, mood, and affect are within normal limits. Vital Signs: 10:50 BP 131 / 71; Pulse 104; Resp 20; Temp 103.1(O); Pulse Ox 96% ; Weight 109.77 kg; Height vg1 5 ft. 8 in. (172.72 cm); Pain 10/10; 12:06 BP 122 / 66; Pulse 91; Resp 20; Temp 102.6; Pulse Ox 95% ; vg1 12:10 Temp 102.6; vg1 13:33 BP 128 / 71; Pulse 90; Resp 18; Pulse Ox 98% ; vg1 10:50 Body Mass Index 36.80 (109.77 kg, 172.72 cm) vg1 MDM: 10:55 Patient medically screened. kb 14:57 Data reviewed: vital signs, nurses notes. Data interpreted: Pulse oximetry: on room air kb is 98 %. Interpretation: normal. Counseling: I had a detailed discussion with the patient and/or guardian regarding: the historical points, exam findings, and any diagnostic results supporting the discharge/admit diagnosis, lab results, the need for outpatient follow up, a family practitioner, to return to the emergency department if symptoms worsen or persist or if there are any questions or concerns that arise at home. 09/03 10:55 Order name: Flu 09/03 10:55 Order name: COVID-19 : Document "Date of Symptom Onset" if Symptomatic. 09/03 10:55 Order name: Influenza Screen (A ; Complete Time: 12:27 EDMS 09/03 13:18 Order name: SARS-COV-2 RT PCR; Complete Time: 13:21 EDMS Administered Medications: 10:59 Drug: Tylenol 1000 mg Route: PO; vg1 12:10 Follow up: Temp 102.6 vg1 Disposition: 16:33 Co-signature as Attending Physician, Maynor Carmona MD. rn Disposition Summary: 09/03/20 13:22 Discharge Ordered Location: Home kb Condition: Stable kb Diagnosis - Coronavirus infection, unspecified kb Followup: kb - With: Private Physician - When: 2 - 3 days - Reason: Recheck today's complaints, Continuance of care, Re-evaluation by your physician Followup: kb - With: Emergency Department - When: As needed - Reason: Worsening of condition Discharge Instructions: - Discharge Summary Sheet kb - Viral Respiratory Infection, [id number] kb - COVID-19 kb Forms: - Medication Reconciliation Form kb - Thank You Letter kb - Antibiotic Education kb - Prescription Opioid Use kb - Work release form vg1 Signatures: Dispatcher [employer] EDMS Carla Bateman, UNIFORMER-C ALVARADO-Maynor Guan MD MD rn Fatmata Blanco RN RN vg1 Corrections: (The following items were deleted from the chart) 12:20 10:55 CORONAVIRUS ordered. EDAZ EDAZ
--- NOTE | 2020-09-04 17:21 | ER ---
Nurse's Notes [facility] Name: Lawrence Orellana Age: 40 yrs Sex: Male : 1980 Arrival Date: 09/03/2020 Time: 10:47 Bed Treatment Private MD: Diagnosis: Coronavirus infection, unspecified Presentation: 09/03 10:50 Chief complaint: Patient states: Fever, cough, body aches, chills began Thursday night, vg1 October 01. Denies NVD; denies difficulty breathing. Coronavirus screen: Client denies travel out of the [place] in the last 14 days. Client presents with at least one sign or symptom that may indicate coronavirus-19. Standard/surgical mask placed on the client. Ebola Screen: Patient negative for fever greater than or equal to 101.5 degrees Fahrenheit, and additional compatible Ebola Virus Disease symptoms. Initial Sepsis Screen: Does the patient meet any 2 criteria? Temp <36.0*C (96.8*F)) or > 38.3*C (100.9*F). HR > 90 bpm. Does the patient have a suspected source of infection?. Risk Assessment: Do you want to hurt yourself or someone else? Patient reports no desire to harm self or others. Onset of symptoms was August 31, 2020. 10:50 Method Of Arrival: Ambulatory vg1 10:50 Acuity: NEHA 3 vg1 Triage Assessment: 10:52 General: Appears in no apparent distress. uncomfortable, Behavior is calm, cooperative. vg1 Pain: Complains of pain in whole body. Historical: - Allergies: 10:52 PENICILLINS; vg1 - Home Meds: 10:52 None [Active]; vg1 - PMHx: 10:52 None; vg1 - Immunization history:: Adult Immunizations up to date. - Social history:: Smoking status: Patient denies any tobacco usage or history of. Screenin:11 Abuse screen: Denies threats or abuse. Nutritional screening: No deficits noted. vg1 Tuberculosis screening: No symptoms or risk factors identified. Fall Risk No fall in past 12 months (0 pts). No secondary diagnosis (0 pts). No IV (0 pts). Ambulatory Aid- None/Bed Rest/Nurse Assist (0 pts). Gait- Normal/Bed Rest/Wheelchair (0 pts) Mental Status- Oriented to own ability (0 pts). Total Boo Fall Scale indicates No Risk (0-24 pts). Assessment: 12:09 General: Appears in no apparent distress. uncomfortable, Behavior is calm, cooperative. vg1 Pain: Complains of pain in whole body aches. Neuro: Level of Consciousness is awake, alert, obeys commands, Oriented to person, place, time, situation. Cardiovascular: Patient's skin is warm and dry. Respiratory: Airway is patent Respiratory effort is even, unlabored, Breath sounds are clear bilaterally. GI: Patient currently denies diarrhea, nausea, vomiting. : No signs and/or symptoms were reported regarding the genitourinary system. EENT: No signs and/or symptoms were reported regarding the EENT system. Derm: Skin is intact, is healthy with good turgor. Musculoskeletal: Circulation, motion, and sensation intact. 13:33 Reassessment: Patient appears in no apparent distress at this time. No changes from vg1 previously documented assessment. Patient and/or family updated on plan of care and expected duration. Pain level reassessed. Patient is alert, oriented x 3, equal unlabored respirations, skin warm/dry/pink. Vital Signs: 10:50 BP 131 / 71; Pulse 104; Resp 20; Temp 103.1(O); Pulse Ox 96% ; Weight 109.77 kg; Height vg1 5 ft. 8 in. (172.72 cm); Pain 10/10; 12:06 BP 122 / 66; Pulse 91; Resp 20; Temp 102.6; Pulse Ox 95% ; vg1 12:10 Temp 102.6; vg1 13:33 BP 128 / 71; Pulse 90; Resp 18; Pulse Ox 98% ; vg1 10:50 Body Mass Index 36.80 (109.77 kg, 172.72 cm) vg1 ED Course: 10:47 Patient arrived in ED. vg1 10:52 Triage completed. vg1 10:52 Arm band placed on Patient placed in waiting room, Patient notified of wait time. vg1 10:54 Carla Bateman FNP-C [facility] kb 10:54 Maynor Carmona MD is Attending Physician. kb 10:59 COVID swab sent to lab. Flu and/or RSV swab sent to lab. vg1 12:05 Francis, Fatmata, RN is Primary Nurse. vg1 12:11 Patient has correct armband on for positive identification. Bed in low position. Call vg1 light in reach. Side rails up X 1. Adult w/ patient. 13:33 No provider procedures requiring assistance completed. Patient did not have IV access vg1 during this emergency room visit. Administered Medications: 10:59 Drug: Tylenol 1000 mg Route: PO; vg1 12:10 Follow up: Temp 102.6 vg1 Outcome: 13:22 Discharge ordered by . lamin 13:33 Discharged to home ambulatory. vg1 13:33 Condition: stable 13:33 Discharge instructions given to patient, Instructed on discharge instructions, follow up and referral plans. Demonstrated understanding of instructions, follow-up care. 13:34 Patient left the ED. vg1 Signatures: Carla Bateman, CUTTER OPERATOR [employer] SHINGLE-C CUTTER OPERATOR [employer]BESTOS SHINGLE-Ckb Fatmata Blanco, RN RN vg1
[2020-09-05 06:41] VITALS: TEMP 102.6
[2020-09-05 06:44] VITALS: BP 128/71; O2SAT 98
== END 2020-09-03 13:34 | disposition home or self-care (01) ==
LOC: ER 10:43
DX: U07.1 COVID-19 (principal); Z88.0 Allergy status to penicillin
CPT/HCPCS: 87804; U0003

== ENCOUNTER 2021-04-01 05:49 | Emergency (ER) | payer SELFPAY ==
--- OUTSIDE RECORDS SUMMARY | 2021-04-01 05:53 | XMS REPORT | Continuity of Care Document ---
:1980 Author Organization [facility] t Address [address] [place] [address] [address]. T[address] [place] [address] Care Team Providers Name Role Phone Reny SOLER Primary Care Physician Unavailable Ary CHILDERS Attending Clinician Doctor Unassigned, Name Attending Clinician Unavailable Hans CHO Attending Clinician Anirudh GAMINO S Attending Clinician Mumtaz GAMINO M Attending Clinician ARY Attending Clinician Unavailable Ary CHILDERS Attending Clinician Abdoul ZUNIGA Attending Clinician Unavailable Nelda RAREAGA Attending Clinician Unavailable Shahzad GHOSH Attending Clinician Unavailable Mumtaz GAMINO M Admitting Clinician Nelda ARREAGA Admitting Clinician Unavailable Shahzad GHOSH Admitting Clinician Unavailable Payers Payer Name Policy Type Policy Number Effective Date [id number]00 OUT OF STATE Problems Condition Condition Condition Status Onset Resolution Last Treating Co mments Source Name Details Category Date Date Treatment Clinician Date Abnormal Abnormal Disease Active Unive rs EKG EKG 09-10 ity of 00:00: [address] COVID-19 COVID-19 Disease Active Unive rs virus virus 09-10 ity of detected detected 00:00: [address] Pneumonia Pneumonia Disease Active Uni vers due to due to 09-10 ity of COVID-19 COVID-19 00:00: [place] virus virus 00 Medical Branch Other Other Disease Active Univers chest pain chest pain 09-10 it y of 00:00: [place] 00 Medical Branch Respirator Respirator Disease Active U nivers y failure y failure 09-09 ity of 00:00: [place] [facility] Obesity Obesity Disease Active 2015-02 Univers (BMI (BMI 2-16 ity of 30-39.9) 30-39.9) 00:00: [place] 00 Medical Branch Allergies, Adverse Reactions, Alerts Allergy Allergy Status Severity Reaction(s) Onset Inactive Treating Comm ents Source Name Type Date Date Clinician PENICILL Drug Active Hives Univers INS Class 1-29 ity of 00:00: [place] 00 Medical Branch Penicill Propensi Active Hives Univer s ins ty to 03-09 ity of adverse 00:00: [place] reaction 00 Medical s Branch Social History Social Habit Start Date Stop Date Quantity Comments Source Exposure to Not sure [facility] SARS-CoV-2 (event) Medica l Branch Sex Assigned At [birth year] [facility] 00:00:00 00:00:00 Medical Branch Smoking Status Start Date Stop Date Source Unknown if ever smoked [facility] Medications Ordered Filled Start Stop Current Ordering Indication Dosage Frequency Signature Comments Components Source Medication Medication Date Date Medication? Clinician (SIG) Name Name aspirin Yes [id number] 81mg Take 1 Univers mg chewable 8-04 tablet by ity of tablet 00:00: mouth [place] 00 daily. Medical Branch cholecalcif Yes [id number] 2000U Take 2 Univers misty, 8-04 tablets by ity of vitamin D3, 00:00: mouth [place] 25 mcg 00 daily. Medical (1,000 Branch unit) tablet aspirin Yes [id number] 81mg Take 1 Univers mg chewable 8-04 tablet by ity of tablet 00:00: mouth [place] 00 daily. Medical Branch cholecalcif Yes [id number] 2000U Take 2 Univers misty, 8-04 tablets by ity of vitamin D3, 00:00: mouth [place] 25 mcg 00 daily. Medical (1,000 Branch unit) tablet aspirin 81 Yes [id number] 81mg Take 1 Univers mg chewable 8-04 tablet by ity of tablet 00:00: mouth [place] 00 daily. Medical Branch cholecalcif 0 Yes [id number] 2000U Take 2 Univers misty, 8-04 tablets by ity of vitamin D3, 00:00: mouth [place] 25 mcg 00 daily. Medical (1,000 Branch unit) tablet aspirin 81 0 Yes [id number] 81mg Take 1 Univers mg chewable 8-04 tablet by ity of tablet 00:00: mouth [place] 00 daily. Medical Branch cholecalcif 0 Yes [id number] 2000U Take 2 Univers misty, 8-04 tablets by ity of vitamin D3, 00:00: mouth [place] 25 mcg 00 daily. Medical (1,000 Branch unit) tablet aspirin 81 0 Yes [id number] 81mg Take 1 Univers mg chewable 8-04 tablet by ity of tablet 00:00: mouth [place] 00 daily. Medical Branch cholecalcif Yes [id number] 2000U Take 2 Univers misty, 8-04 tablets by ity of vitamin D3, 00:00: mouth [place] 25 mcg 00 daily. Medical (1,000 Branch unit) tablet albuterol Yes [id number] 2{puff} Inhale 2 Univers 90 8-03 Puffs ity of mcg/actuati 00:00: every 4 [place] as on inhaler 00 (four) Medical hours as Branch needed for Wheezing or Shortness of Breath. ascorbic 0 Yes [id number] 1000mg Take 1 Univers acid, 8-03 tablet by ity of vitamin C, 00:00: mouth [place] 1,000 mg 00 daily. Medical tablet Branch albuterol Yes [id number] 2{puff} Inhale 2 Univers 90 8-03 Puffs ity of mcg/actuati 00:00: every 4 [place] as on inhaler 00 (four) Medical hours as Branch needed for Wheezing or Shortness of Breath. ascorbic 0 Yes [id number] 1000mg Take 1 Univers acid, 8-03 tablet by ity of vitamin C, 00:00: mouth [place] 1,000 mg 00 daily. Medical tablet Branch albuterol 0 Yes [id number] 2{puff} Inhale 2 Univers 90 8-03 Puffs ity of mcg/actuati 00:00: every 4 [place] as on inhaler 00 (four) Medical hours as Branch needed for Wheezing or Shortness of Breath. ascorbic Yes [id number] 1000mg Take 1 Univers acid, 8-03 tablet by ity of vitamin C, 00:00: mouth [place] 1,000 mg 00 daily. Medical tablet Branch albuterol Yes [id number] 2{puff} Inhale 2 Univers 90 8-03 Puffs ity of mcg/actuati 00:00: every 4 [place] as on inhaler 00 (four) Medical hours as Branch needed for Wheezing or Shortness of Breath. ascorbic Yes [id number] 1000mg Take 1 Univers acid, 8-03 tablet by ity of vitamin C, 00:00: mouth [place] 1,000 mg 00 daily. Medical tablet Branch albuterol Yes [id number] 2{puff} Inhale 2 Univers 90 8-03 Puffs ity of mcg/actuati 00:00: every 4 [place] as on inhaler 00 (four) Medical hours as Branch needed for Wheezing or Shortness of Breath. ascorbic Yes [id number] 1000mg Take 1 Univers acid, 8-03 tablet by ity of vitamin C, 00:00: mouth [place] 1,000 mg 00 daily. Medical tablet Branch dexAMETHaso 2020- No [id number] 6mg Take 1 Univers ne 6 mg 09-11-09 tablet by ity of tablet 00:00: 04:59 mouth [place] 00 :00 daily with Medical breakfast Branch for 5 days. dexAMETHaso 2020- No [id number] 6mg Take 1 Univers ne 6 mg 09-11-09 tablet by ity of tablet 00:00: 04:59 mouth [place] 00 :00 daily with Medical breakfast Branch for 5 days. aspirin Yes 81mg 81 mg, Univers chewable 09-10 Oral, ity of tablet 81 14:30: DAILY, [place] mg 00 First dose Medical on Thu Branch 09/10/20 at 0930, Until Discontinu ed, Routine albuterol-i Yes 1{puff} 1 Puff, Univers pratropium 802 Inhalation ity of (COMBIVENT 14:15: , Q6H, [place] RESPIMAT) 00 First dose Medi carrie 20-100 on [facility] Branch mcg/actuati 09/10/20 at on inhaler 0915, 1 Puff Until Discontinu ed, Routine
Is this order for a patient with suspected or confirmed COVID-19 infection? Yes zinc 2020-0 Yes 220mg 220 mg, Univers sulfate 09-10 Oral, ity of (ORAZINC) 14:00: DAILY, [place] capsule 220 00 First dose Me dical mg on [facility] Branch 09/10/20 at 0900, Until Discontinu ed, Routine cholecalcif 2020-0 Yes 1000U 1,000 Univ ers misty 09-10 Units, ity of (vitamin 14:00: Oral, [place] D3) tablet 00 DAILY, Medical 1,000 Units First dose Br anch on Thu09/10/20 at 0900, Until Discontinu ed, Routine dexamethaso 2020- No 6mg 6 mg, IV U nivers ne 09-10 08-12 Piggyback, ity of (DECADRON 14:00: 13:59 DAILY, 10 [place] PHOSPHATE) 00 :00 doses, Medical 6 mg in First dose Branch NaCl 0.9% on Thu (NS) 50 mL 09/10/20 at piggyback 0900, Last dose on Thu09/19/20 at 0900, Administer over 20 Minutes, 50 mL famotidine Yes 20mg 20 mg, Unive rs (PEPCID AC) 09-10 Oral, BID, it y of tablet 20 13:45: First dose [place] mg 00 on [facility] Medical 09/10/20 at Branch 0845, Until Discontinu ed, Routine ascorbic 0 Yes 500mg 500 mg, Unive rs acid 09-10 Oral, BID, ity of (vitamin C) 13:45: First dose [place] (VITAMIN C) 00 on Thu Medica l tablet 500 09/10/20 at Bran ch mg 0845, Until Discontinu ed, Routine benzonatate 0 Yes 100mg 100 mg, Un patricia (TESSALON 09-10 Oral, TID, ity of PERLES) 13:45: First dose [place] capsule 100 00 on [facility] Medica l mg 09/10/20 at Branch 0845, Until Discontinu ed, Routine albuterol 0 Yes 2{puff} 2 Puff, Un patricia (VENTOLIN) 09-10 Inhalation ity of inhaler 2 13:37: , Q4HPRN, [place] as Puff 12 Starting Medical [facility] 09/10/20 Branch at 0837, Until Discontinu ed, Routine, Wheezing, Shortness of Breath codeine-gua Yes 5mL 5 mL, Unive rs ifenesin 09-10 Oral, ity of (ROBITUSSIN 06:07: Q4HPRN, [place] AC) 10-100 17 Starting Medic al mg/5 mL [facility] 09/10/20 Branch solution 5 at 0107, mL Until Discontinu ed, Routine, Cough enoxaparin Yes 40mg 40 mg, Unive rs (LOVENOX) 09-09 Subcutaneo ity of injection 22:00: [place], DAILY, [place] 40 mg 00 First dose Medical on [facility] 09/09/20 at 1700, Until Discontinu ed, Routine iopamidol 2020- No [id number] 100mL 100 mL, Univers (ISOVUE 09-09 Intravenou ity o f 370-500 mL) 07:00: 05:52 s, ONCE, 1 [place] injection 00 :00 dose, [place] Medic al 100 mL 09/09/20 at Branch 0200, Routine dexamethaso 2020- No 10mg 10 mg, IV Univers ne 09-09 Push, ity of (DECADRON 06:45: 06:26 ONCE, 1 [place] PHOSPHATE) 00 :00 dose, [place] Medi carrie injection 09/09/20 at Bran h 10 mg 0145, STAT levoFLOXaci 2020- No 750mg 750 mg, IV Univers n in D5W 09-09 Piggyback, ity of (LEVAQUIN) 05:45: 07:59 Administer [place] 750 mg/150 00 :00 over 90 Medica l mL Minutes, [place] Piggyback ONCE, 1 750 mg dose, [place] 09/09/20 at 0045, ESHA
Re ason for Anti-Infec tive: Empiric Therapy for Suspected Infection< br>Empiric Therapy Site: Respirator y
Durat ion of therapy: 72 hours codeine-gua 2020- No 10mL 10 mL, Uni vers ifenesin 09-09 Oral, ity of (ROBITUSSIN 05:09: 05:19 ONCE, 1 [place] AC) 10-100 00 :00 dose, [place] Medi carrie mg/5 mL 09/09/20 at [place] solution 10 0015, ESHA mL NaCl 0.9% Yes 5mL 5 mL, Slow Un patricia (NS) 09-09 IV Push, ity of injection 5 04:01: PRN - SEE [place] mL 12 [facility] Medical NS, Branch Starting 09/08/20 at 2301, Until Discontinu ed, 10 mL methocarbam Yes 500mg 500 mg, Un patricia oL 5-30 Oral, QID, ity of (ROBAXIN) 17:00: [place] dose [place] tablet 500 00 on [place] [facility] mg 07/08/20 at Branch 1200, Until Discontinu ed, Routine ibuprofen 2020- No 800mg 800 mg, Uni vers (IBU) 30 05-30 Oral, ity of tablet 800 17:00: 16:05 ONCE, 1 [place] as mg 00 :00 dose, [place] Medical 07/08/20 at Branch 1200, ESHA No known No Univers medications [facility] Vital Signs Vital Name Observation Time Observation Value Comments Source Respiratory rate 2020-09-11 18:43:00 22 /min [facility] Oxygen saturation in 2020-09-11 18:43:00 95 /min [facility] Arterial blood by [facility] Pulse oximetry [place] Systolic blood 2020-09-11 17:00:00 91 mm[Hg] Univer sity of pressure [facility] [place] [facility] Diastolic blood 2020-09-11 17:00:00 47 mm[Hg] [facility] Heart rate 2020-09-11 17:00:00 74 /min [facility] Body temperature 2020-09-11 12:55:00 36.33 Kailey [facility] Body height 2020-09-09 13:41:00 172.7 cm [facility] Body weight 2020-09-09 13:41:00 101.969 kg [facility] BMI 2020-09-09 13:41:00 34.18 kg/m2 [facility] [place] [facility] Systolic blood 2020-07-08 15:47:00 139 mm[Hg] Univer sity of pressure [facility] [place] [facility] Diastolic blood 2020-07-08 15:47:00 93 mm[Hg] Unive rsity of pressure [facility] [place] [facility] Heart rate 2020-07-08 15:47:00 89 /min [facility] [place] [facility] Body temperature 2020-07-08 15:47:00 37.28 Kailey [facility] [place] [facility] Respiratory rate 2020-07-08 15:47:00 18 /min [facility] [place] [facility] Body weight 2020-07-08 15:47:00 106.595 kg [facility] [place] [facility] BMI 2020-07-08 15:47:00 35.73 kg/m2 [facility] [place] [facility] Oxygen saturation in 2020-07-08 15:47:00 96 /min University of Arterial blood by [place] [facility] carrie Pulse oximetry Branch Systolic blood 2020-07-08 15:47:00 139 mm[Hg] Univer sity of pressure [place] [facility] Diastolic blood 2020-07-08 15:47:00 93 mm[Hg] Unive rsity of pressure [facility] [place] [facility] Heart rate 2020-07-08 15:47:00 89 /min [facility] [place] [facility] Body temperature 2020-07-08 15:47:00 37.28 Kailey [facility] [place] [facility] Respiratory rate 2020-07-08 15:47:00 18 /min [facility] [place] [facility] Body weight 2020-07-08 15:47:00 106.595 kg [facility] [place] [facility] BMI 2020-07-08 15:47:00 35.73 kg/m2 [facility] [place] [facility] Oxygen saturation in 2020-07-08 15:47:00 96 /min University of Arterial blood by [place] [facility] carrie Pulse oximetry Branch Procedures Procedure Date / Time Performing Clinician Source Performed EXTERNAL PROVIDER - ADC 2020-10-15 05:01:00 [facility] COMP. METABOLIC PANEL 2020-09-11 08:49:00 Obie Brown [facility] ([id number]) Medical Branch TRANSTHORACIC ECHO (TTE) 2020-09-10 18:08:34 Alyssa Calderon [facility] COMPLETE [facility] TROPONIN I 2020-09-10 10:19:[address] [facility] COMP. METABOLIC PANEL 2020-09-10 10:19:00 Obie Brown [facility] ([id number]) [facility] TROPONIN I 2020-09-09 23:39:00 Filiberto Pandya [facility] TROPONIN I 2020-09-09 16:26:[address] [facility] CT CHEST PULMONARY 2020-09-09 05:58:12 Marcie Oleary [facility] ANGIOGRAM Medical Branch LACTATE DEHYDROGENASE 2020-09-09 05:19:00 Marcie Oleary [facility] CBC WITH DIFF 2020-09-09 05:19:00 Marcie Oleary [facility] GLYCOSYLATED HEMOGLOBIN 2020-09-09 05:19:[address] [facility] (A1C) [facility] PROCALCITONIN 2020-09-09 05:19:00 Marcie Oleary [facility] XR CHEST 1 VW 2020-09-09 04:46:12 Marcie Oleary [facility] LACTIC ACID WHOLE BLOOD 2020-09-09 04:12:00 Marcie Oleary [facility] BLOOD CULTURE SCREEN 2020-09-09 04:11:00 Marcie Oleary [facility] FERRITIN SERUM 2020-09-09 04:11:00 Marcie Oleary [facility] TROPONIN I 2020-09-09 04:11:00 Marcie Oleary [facility] COMP. METABOLIC PANEL 2020-09-09 04:11:00 Marcie Oleary [facility] ([id number]) [facility] D-DIMER 2020-09-09 04:11:00 Marcie Oleary [facility] N-TERMINAL PRO-BNP 2020-09-09 04:11:00 Marcie Oleary [facility] Medical Branch COVID-19 (ID NOW RAPID 2020-09-09 04:11:[address] [facility] TESTING) Medical Branch LAB ONLY COVID 2020-09-09 04:11:00 Marcie Oleary [facility] INTERPRETATION Medical Branch HB ECG ROUTINE & RHYTHM 2020-09-09 03:52:47 [facility] Branch CONSENT/REFUSAL FOR 2020-09-09 03:18:24 Doctor Eddie [facility] DIAGNOSIS AND TREATMENT [facility] [place] CONSENT/REFUSAL FOR 2020-07-08 15:36:15 Doctor Eddie [facility] DIAGNOSIS AND TREATMENT [facility] [place] Encounters Start End Encounter Admission Attending Care Care Encounter Source Date/Time Date/Time Type Type Clinicians Facility Department ID 2020-12-10 Emergency [facility] [id number] Univers 12:14:09 ity of [facility] [place] [facility] 2020-12-09 Emergency [facility] [id number] Univers 22:10:23 ity of [facility] [place] [facility] 2020-10-18 2020-10-18 Letter ANSHUL Mcallister [id number] Univers 00:00:00 00:00:00 (Out) Meeta GAR [id number] it y of HOSPITAL 4.2.7.2.686 [place] as [id number] [facility] 043 Branch 2020-10-15 2020-10-15 Orders Doctor LANDERS [id number] Univers 00:00:00 00:00:00 Only UnassRIN molina [id number] ity of [facility] 4.2.7.2.686 [place] as [id number] [facility] 009 Branch 2020-09-12 2020-09-12 Transition Jessy Maxwell [id number] Univers 00:00:00 00:00:00 of Care Jasmine Weiss [id number] [place] 4[place]2.7.2.686 [place] [id number] [facility] 403 Branch 2020-09-08 2020-09-11 [facility] Marcie Oleary [facility] 1.2.840. 114 [id number] Univers 22:42:00 17:37:00 Encounter Devon Pandyacristal Son [id number] ity of [place] 4.2.7.2.686 [facility] [id number] [address] 2020-07-08 2020-07-08 Outpatient R ARY [facility] [id number] Univers 12:10:00 12:10:00 PALMAHALLEY [id number] [facility] 2020-07-08 2020-07-08 Emergency [facility] [id number] Univers 10:49:00 12:02:00 Michelle Cainton [id number] i ty of [place] 4.2.7.2.686 [facility] [id number] [address] 2020-07-08 2020-07-08 Emergency [facility] [id number] 10:49:00 12:02:00 Michelle Cainton [id number] [place] [id number] [place] [address] [id number] 2020-03-19 2020-03-19 Emergency X [facility]IN[facility] ERT [id number] Univers 18:02:00 19:20:00 MARY [facility] 2019-02-01 2019-02-01 Emergency X [facility] ERT [id number] Univers 00:37:40 01:11:00 BERTIN [facility] 2019-01-18 2019-01-18 Emergency X [facility]IP[facility] ERT [id number] Univers 12:47:22 14:12:00 FRANCISCO [facility] Results Test Description Test Time Test Comments Results Result Comments Source COMP. METABOLIC PANEL (96623) 2020-09-11 11:09:00 Test Item Value Reference Range Interpretation Comme nts NA (test code = 2971046648) 138 mmol/L 135-145 K (test code = 8518992210) 4.3 mmol/L 3.5-5.0 CL (test code = 7829163454) 102 mmol/L 98-108 CO2 TOTAL (test code = 2133400945) 27 mmol/L 23-31 AGAP (test code = 2001710327) 2-16 BUN (test code = 6826563047) 21 mg/dL 7-23 GLUCOSE (test code = 0574904733) 118 mg/dL 70-110 H CREATININE (test code = 0.83 mg/dL 0.60-1.25 6845509405) TOTAL BILI (test code = 0.6 mg/dL 0.1-1.1 7353021324) CALCIUM (test code = 4232643218) 9.0 mg/dL 8.6-10.6 T PROTEIN (test code = 1213831482) 6.6 g/dL 6.3-8.2 ALBUMIN (test code = 2358547445) 3.4 g/dL 3.5-5.0 L ALK PHOS (test code = 1307047417) 38 U/L 34-122 ALTv (test code = 1742-6) 67 U/L 5-50 H AST(SGOT) (test code = 7913051547) 52 U/L 13-40 H eGFR (test code = 4201876887) mL/min/1.73m2 ARELI (test code = ARELI) Association of Glomerular Filtration Rate (GFR) and Staging of Kidney Disease* + +-------- + ------+| GFR (mL/min/1.73 m2) ?| With Kidney Damage ?| ?Without Kidney Damage+ +-- + +| ?>90 ?| ?Stage one ?| ? Normal ?+ +------- + -------+| ?60-89 ?| ?Stage two ?| ? Decreased GFR ? + +-------- + ------+| ?30-59 ?| ?Stage three ?| ? Stage three ? + +-------- + ------+| ?15-29 ?| ?Stage four ? | ? Stage four ?+ +------- + -------+| ?<15 (or dialysis) ? ?| ?Stage five ? | ? Stage five ?+ +------- + -------+ *Each stage assumes the associated GFR level has been in effect for at least three months. ?Stages 1 to 5, with or without kidney disease, indicate chronic kidney disease. Notes: Determination of stages one and two (with eGFR >59mL/min/1.73 m2) requires estimation of kidney damage for at least three months as defined by structural or functional abnormalities of the kidney, manifested by either:Pathological abnormalities or Markers of kidney damage (including abnormalities in the composition of the blood or urine or abnormalities in imaging tests). Lab Interpretation (test code = Abnormal 56929-8) [facility] [id number] 22:06:43COVID DMT InterpretationInterpretation/Recommendations:Molecular NAAT Tests for Active Infection with the SARS-CoV-2 Virus:The current test result is positive for the SARS-CoV-2 virus that causes COVID-19 illness. The patient should be considered infectious at this time. The patient may be considered no longer infectious when it has been at least 10 days since symptom onset, the patient has been afebrile for 24 hours without the use of fever-reducing medications, AND other symptoms of COVID-19 are improving. However, in patients who have been severely ill with COVID-19 or are severely immunocompromised, isolation up to 20 days after symptom onset is recommended. Asymptomatic patients are considered infectious for the first 10 days subsequent to the initial positive test result. From the onset of symptoms, if any, this result is likely to remain positive up to 2-4 weeks. Tests for IgM and/or IgG Antibodies to the SARS-CoV-2 Virus:Testing for IgM and IgG antibodies approximately 3 weeks after illness onset will likely indicate if the patient has produced antibodies to the SARS-CoV-2 virus. However, some patients may take longer to develop detectable antibodies, while others infected with SARS-CoV-2 may never develop antibodies, particularly those who have had mild or asymptomatic illness. Of no te, if the patient has been vaccinated earlier than 1-2 weeks prior to antibody testing, any positive SARS-CoV-2 IgG antibody result is likely due to vaccination. The specific duration and strength of immunity from SARS-CoV-2 IgG antibodies is highly variable between individuals and is dependent on a variety of factors, including infection vs. vaccination response, initial infection severity, the strength of the patient's own immune system, and the variants to which the patient has been exposed. ? -- Interpretation Result Comments:These interpretation comments are based upon all COVID-19 testing the patient has had at [facility], including molecular NAAT testing (more commonly known as PCR testing and Rapid ID Now testing) and antibody testing. It does not take into account any testing that a patient has had outside of the [facility] medical record. [facility] LABORATORY SERVICESCOVID [id number] Rapid ID NOW (no units) ? ? Date ? Value ? 09/08/2020 ? Positive (A) ? [facility] [id number] 21:18:20 Test Item Value Reference Range Interpretation Comments WBC (test code = See_Comment L [Automated 8290-2) message] The system which generated this result transmit les reference range : 4.20 - 10.70 10*3/?L. The reference range was not used to interpret this result as normal/abnormal . RBC (test code = See_Comment [Automated 149-8) message] The system which generated this result transmit les reference range : 4.26 - 5.52 10*6/?L. The reference range was not used to interpret this result as normal/abnormal . HGB (test code = 14.4 g/dL 12.2-16.4 718-7) HCT (test code = 45.3 % 38.4-49.3 4544-3) MCV (test code = 88.0 fL 81.7-95.6 787-2) MCH (test code = 28.0 pg 26.1-32.7 785-6) MCHC (test code = 31.8 g/dL 31.2-35.0 786-4) RDW-SD (test code = 40.1 fL 38.5-51.6 92731-9) RDW-CV (test code = 12.3 % 12.1-15.4 788-0) PLT (test code = See_Comment [Automated 777-3) message] The system which generated this result transmit les reference range : 150 - 328 10*3/ ?L. The reference range was not u sed to interpret th is result as normal/abnormal . MPV (test code = 11.2 fL 9.8-13.0 45032-2) NRBC/100 WBC (test See_Comment [Automat ed code = 1555979675) message] The system which generated this result transmit les reference range : 0.0 - 10.0 /100 WBCs. The reference range was not used to interpret this result as normal/abnormal . NRBC x10^3 (test code <0.01 See_Comment [Auto mated = 4320515020) message] The system which generated this result transmit les reference range : 10*3/?L. The reference range was not used to interpret this result as normal/abnormal . SEG % (test code = 50 % 33-76 02041-8) BAND % (test code = 4 % 0-1 H 92896-0) LYMPH % (test code = 33 % 14-54 25074-1) ATYP LYMPH % (test 4 % See_Comment H Reviewed by Lopez code = [id number]) Lucille Dimas, Director of HEMATOPATHOLOGY . [Automated message] The system which generated this result transmit les reference range : <=0. The refere nce range was not u sed to interpret th is result as normal/abnormal . PLSMACYTD LYMPH % 1 % See_Comment H [Automate d (test code = 97007-8) messag e] The system which generated this result transmit les reference range : <=0. The refere nce range was not u sed to interpret th is result as normal/abnormal . MONO % (test code = 8 % 0-4 H 43066-3) ARELI (test code = ARELI) Reviewed by Lopez Dimas M.D., Director of HEMATOPATHOLOGY . Lab Interpretation Abnormal (test code = 02139-9) [facility]2020-09-10 14:48:30 Test Item Value Reference Range Interpretation Comments HGB A1C (test code = 5.8 % 4.0-5.7 H 4548-4) ARELI (test code = ARELI) Reference RangesNormal: <5.7%Prediabetes: 5.7 - 6.4%Diabetes: > 6.5% Lab Interpretation (test Abnormal code = 38605-5) [facility] HospitalARNAVN [id number] 11:31:01 Test Item Value Reference Interpretation Comments Range TROPONIN I (test 0.004 ng/mL See_Comment [Automated code = [id number]) message] The system which generated this result transmitted reference range : <=0.034. The reference range was not used to interpret this result as normal/abnormal . ARELI (test code = Reference (Normal) ARELI) Range (defined by the 99th percentile reference limit): <= 0.034 ng/mL Note: Cardiac troponin begins to rise 3-4 hours after the onset of ischemia. Repeat in 4-6 hours if the sample was drawn within 3-4 hours of the onset of the symptom and found normal. Diagnosis of myocardial injury is made with acute changes in cTn concentrations with at least one serial sample above the 99th percentile upper reference limit (URL), taken together with the patient's clinical presentation. Biotin has been reported to cause a negative bias, interpret results relative to patient's use of biotin. Lab Interpretation Normal (test code = 39903-5) [facility]COM. METABOLIC PANEL (44940)2020-09-10 11:28:40 Test Item Value Reference Range Interpretation Comments NA (test code = 137 mmol/L 135-145 1894454964) K (test code = 4.2 mmol/L 3.5-5.0 1271103710) CL (test code = 100 mmol/L 98-108 4085438541) CO2 TOTAL (test code = 31 mmol/L 23-31 4602929858) AGAP (test code = 2-16 3365109004) BUN (test code = 19 mg/dL 7-23 6391542903) GLUCOSE (test code = 147 mg/dL 70-110 H 8460243148) CREATININE (test code = 0.92 mg/dL 0.60-1.25 2580852666) TOTAL BILI (test code = 0.7 mg/dL 0.1-1.4 4789023992) CALCIUM (test code = 9.2 mg/dL 8.6-10.6 4637703577) T PROTEIN (test code = 7.2 g/dL 6.3-8.2 3402581894) ALBUMIN (test code = 3.6 g/dL 3.5-5.0 4012818143) ALK PHOS (test code = 35 U/L 34-122 9725193659) ALTv (test code = 68 U/L 5-50 H 2-6) AST(SGOT) (test code = 68 U/L 13-40 H 5448747274) eGFR (test code = mL/min/1.73m2 1753761154) ARELI (test code = ARELI) Association of Glomerular Filtration Rate (GFR) and Staging of Kidney Disease* + --+ --+ ------+| GFR (mL/min/1.73 m2) ?| With Kidney Damage ?| ?Without Kidney Damage+ --------+ --------+ +| ?>90 ?| ?Stage one ?| ? Normal ?+ ---+ ---+ -------+| ?60-89 ?| ?Stage two ?| ? Decreased GFR ? + --+ --+ ------+| ?30-59 ?| ?Stage three ?| ? Stage three ? + --+ --+ ------+| ?15-29 ?| ?Stage four ? | ? Stage four ?+ ---+ ---+ -------+| ?<15 (or dialysis) ? ?| ?Stage five ? | ? Stage five ?+ ---+ ---+ -------+ *Each stage assumes the associated GFR level has been in effect for at least three months. ?Stages 1 to 5, with or without kidney disease, indicate chronic kidney disease. Notes: Determination of stages one and two (with eGFR >59mL/min/1.73 m2) requires estimation of kidney damage for at least three months as defined by structural or functional abnormalities of the kidney, manifested by either:Pathological abnormalities or Markers of kidney damage (including abnormalities in the composition of the blood or urine or abnormalities in imaging tests). Lab Interpretation Abnormal (test code = 92483-4) [facility] HospitalJimefra [id number] 00:17:22 Test Item Value Reference Interpretation Comments Range TROPONIN I (test 0.002 ng/mL See_Comment [Automated code = [id number]) message] The system which generated this result transmitted reference range : <=0.034. The reference range was not used to interpret this result as normal/abnormal . ARELI (test code = Reference (Normal) ARELI) Range (defined by the 99th percentile reference limit): <= 0.034 ng/mL Note: Cardiac troponin begins to rise 3-4 hours after the onset of ischemia. Repeat in 4-6 hours if the sample was drawn within 3-4 hours of the onset of the symptom and found normal. Diagnosis of myocardial injury is made with acute changes in cTn concentrations with at least one serial sample above the 99th percentile upper reference limit (URL), taken together with the patient's clinical presentation. Biotin has been reported to cause a negative bias, interpret results relative to patient's use of biotin. Lab Interpretation Normal (test code = 04750-6) [facility] HospitalPROCALCITONIN2021-08-01 17:49:43 Test Item Value Reference Range Interpretation Comments Procalcitonin (test 0.05 ng/mL <0.07 code = 8191706632) ARELI (test code = ARELI) INTERPRETATION OF PROCALCITONIN RESULTS IN ADULTS >= 18 YEARS OF AGE Initiation and discontinuation of antibiotics on patients with suspected or confirmed Lower Respiratory Tract Infection in Adults >= 18 years of age. + +-------- --------+ + -----+|Procalcitonin |Interpretation ?|Antibiotic ? ? |Considerations ? |ng/mL ? | ?|recommendation | ? + +-------- --------+ + -----+| <0.1 ? | Bacterial ? ? ?| Strongly ? ? ?| ? | ?| infection very | discouraged ? | Overruling: ? | ?| unlikely ? ? ? | ? | ? Clinically unstable ? ? ? + +-------- --------+ + ? High risk for adverse ? ? | <0.25 ?| Bacterial ? ? ?| Discouraged ? | ? outcome ? | ?| infection ? ? ?| ? | ? SEE IMPORTANT NOTE ?| ?| unlikely ? ? ? | ? | ? + +-------- --------+ + -----+| >=0.25 ? ? ? | Bacterial ? ? ?| Encouraged ? ?| ? | ?| infection ? ? ?| ? | ? | ?| likely ? | ? | Consider treatment failure ?+ +------- ---------+ -+ if levels does not decrease | >0.5 ? | Bacterial ? ? ?| Strongly ? ? ?| appropriately ? | ?| infection very | encouraged ? ?| ? | ?| likely ? | ? | ? + +-------- --------+ + -----+ Discontinuation of antibiotics in high-acuity patients with suspected or confirmed sepsis in Adults >= 18 years of age. + +-------- --------+ + -----+|Procalcitonin |Interpretation ?|Antibiotic ? ? |Considerations ? |ng/mL ? | ?|recommendation | ? + +-------- --------+ + -----+| <0.25 ?| Bacterial ? ? ?| Strongly ? ? ?| ? | ?| infection very | discouraged ? | Overruling: ? | ?| unlikely ? ? ? | ? | ? Clinically unstable ? ? ? + +-------- --------+ + ? High risk for adverse ? ? | <0.5 or drop | Bacterial ? ? ?| Discouraged ? | ? outcome ? | >80% from ? ?| infection ? ? ?| ? | ? SEE IMPORTANT NOTE ?| highest PCT ?| unlikely ? ? ? | ? | ? | level ?| ?| ? | ? + +-------- --------+ + -----+| >=0.5 ?| Bacterial ? ? ?| Encouraged ? ?| ? | ?| infection ? ? ?| ? | ? | ?| likely ? | ? | Consider treatment failure ?+ +------- ---------+ -+ if levels does not decrease | >1.0 ? | Bacterial ? ? ?| Strongly ? ? ?| appropriately ? | ?| infection very | encouraged ? ?| ? | ?| likely ? | ? | ? + +-------- --------+ + -----+ Percentage of drop of Procalcitonin calculation for Discontinuation of antibiotics in high-acuity patients with suspected or confirmed sepsis in Adults >= 18 years of age. ? Procalcitonin highest{}-Procalcitonin current{}Delta Procalcitonin = x100% ? Procalcitonin current {} IMPORTANT NOTE: Procalcitonin may be elevated without bacterial infection by physiologic stress related to trauma, aguilera, chronic dialysis, metastatic cancer, surgery in the past seven days, malaria, some fungal infections, and some forms of vasculitis. The interpretation algorithm may not apply to patients with immunosuppression (equivalent of >10 mg of prednisone daily), HIV with CD4 cell count < 350 cells/mm3, active malignancy on systemic chemotherapy, solid organ transplant or hematopoietic stem cell transplantation, or hospital acquired pneumonia. Additionally, some clinical trials of procalcitonin have excluded patients with shock requiring vasopressor use, acute respiratory failure requiring mechanical ventilation, or those with known lung abscess/empyema. For further information please refer to:[email or web address] Lab Interpretation Normal (test code = 29689-6) [facility] HospitalJimefra [id number] 17:38:19 Test Item Value Reference Interpretation Comments Range TROPONIN I (test 0.003 ng/mL See_Comment [Automated code = [id number]) message] The system which generated this result transmitted reference range : <=0.034. The reference range was not used to interpret this result as normal/abnormal . ARELI (test code = Reference (Normal) ARELI) Range (defined by the 99th percentile reference limit): <= 0.034 ng/mL Note: Cardiac troponin begins to rise 3-4 hours after the onset of ischemia. Repeat in 4-6 hours if the sample was drawn within 3-4 hours of the onset of the symptom and found normal. Diagnosis of myocardial injury is made with acute changes in cTn concentrations with at least one serial sample above the 99th percentile upper reference limit (URL), taken together with the patient's clinical presentation. Biotin has been reported to cause a negative bias, interpret results relative to patient's use of biotin. Lab Interpretation Normal (test code = 68787-2) [facility] HospitalXR CHEST 1 [id number] 17:21:17 Multifocal bilateral airspace opacities suggestive of atypical viralpneumonia such as Covid 19. Preliminary Report Dictated by Resident: Jimmy Hawkins MD., have reviewedthis study and agree withthe above report.EXAM: XR CHEST 1 VW COMPARISON: None HISTORY: SOB FINDINGS: Lungs: The lungs are moderately expanded. Multifocal bilateral hazyairspace opacities. No pleural effusion or pneumothorax is seen. Heart/Mediastinum: The cardiomediastinal silhouette is normal in sizeaccounting for technique. Bones: No osseous lesions are detected. The soft tissues appear normal [facility], Radiant Results Inft User - 09/09/2020 12:22 PM CDT EXAM: XR CHEST 1 VWCOMPARISON: NoneHISTORY: SOB FINDINGS:Lungs: The lungs are moderately expanded. Multifocal bilateral hazyairspace opacities. No pleural effusion or pneumothorax is seen. Heart/Mediastinum: The cardiomediastinal silhouette is normal in sizeaccounting for technique.Bones:No osseous lesions are detected. The soft tissues appear normalIMPRESSIONMultifocal bilateral airspace opacities suggestive of atypical viralpneumonia such as Covid 19.Preliminary Report Dictated by Resident: Jimmy Galicia MD., have reviewed this study and agree withthe above report.[facility] HospitalCT [facility] [id number] 14:45:21 Suboptimal evaluation due to due to inadequate opacification of thepulmonary arteries (segmental and subsegmental branches). No filling defectis seen in the pulmonary trunk, main pulmonary arteries and lobar branches. Multifocal bilateral glass opacities suggestive of atypical viral pneumoniasuch as Covid 19. Preliminary Report Dictated by Resident: Jimmy Hawkins ?MD Anjali., have reviewed this study and agree withthe above report.PROCEDURE: CT CHEST WITH CONTRAST- CHEST PE PROTOCOL CLINICAL INDICATION: PE suspected, intermediate prob, positive D-dimer ? Comparison: ?None TECHNIQUE: Volumetric helical CT angiogram was performed of the chest (lungapices to bases) with IV contrast. Images were reconstructed at 1.25 mmslice thickness. Corresponding axial, sagittal and coronal MIP images wereperformed. Axial MIPs and coronal and sagittal MPR images were generatedand reviewed.. FINDINGS: Devices: None HEART AND GREAT VESSELS: The opacification of the pulmonary vasculature isnondiagnostic for segmental and subsegmental branches (1:30 7HU). Nofilling defects are seen through the pulmonary trunk, main pulmonaryarteries and lobar branches..The pulmonary trunk is normal in carrie iber. The thoracic aorta is normal in caliber. The heart is normal in size. No pericardial abnormalities are identified.The RV to LV is normal. MEDIASTINUM AND LOWER NECK: No central airway lesions are detected. Theesophagus is within normal limits. The included thyroid gland appearsnormal. LYMPH NODES: No evidence of intrathoracic lymphadenopathy. LUNGS AND PLEURA: Multifocal bilateral groundglass opacities.. No pleuralabnormality detected. VISUALIZED UPPER ABDOMEN: The included solid organs and hollow viscusappear within normal limits. OSSEOUS STRUCTURES AND SOFT TISSUES: No focal osseous lesions are detected.The soft tissues appear normal. Superior and inferior sternal bodypseudoarticulation, likely due to unfused ossification centers. [facility], Radiant Results Inft User - 09/09/2020 9:46 AM CDT PROCEDURE: CT CHEST WITH CONTRAST- CHESTPE PROTOCOLCLINICAL INDICATION: PE suspected, intermediate prob, positive D-dimer Comparison: NoneTECHNIQUE: Volumetric helical CT angiogram was performed of the chest (lungapices to bases) with IV contrast. Images were reconstructed at 1.25 mmslice thickness. Corresponding axial, sagittal and coronal MIP images wereperformed. Axial MIPs and coronal and sagittal MPR images were generatedand reviewed..FINDINGS:Devices: None HEART AND GREAT VESSELS: The opacification of the pulmonary vasculature isnondiagnostic for segmental and subsegmental branches (1:30 7HU). Nofilling defects are seen through the pulmonary trunk, main pulmonaryarteries and lobar branches..The pulmonary trunk is normal in caliber.The thoracic aorta is normal in caliber.The heart is normal in size. No pericardial abnormalities are identified.The RV to LV is normal. MEDIASTINUM AND LOWER NECK: No central airway lesions are detected. Theesophagus is within normal limits. The included thyroid gland appearsnormal.LYMPH NODES: No evidence of intrathoracic lymphadenopathy.LUNGS AND PLEURA: Multifocal bilateral groundglass opacities.. No pleuralabnormality detected.VISUALIZED UPPER ABDOMEN: The included solid organs and hollow viscusappear within normal limits.OSSEOUS STRUCTURES AND SOFT TISSUES: No focal osseous lesions are detected.The soft tissues appear normal. Superior and inferior sternal bodypseudoarticulation, likely dueto unfused ossification centers.IMPRESSIONSuboptimal evaluation due to due to inadequate opacification of thepulmonary arteries (segmental and subsegmental branches). No filling defectis seen in the pulmonary trunk, main pulmonary arteries and lobar branches.Multifocal bilateral glass opacities suggestive of atypical viral pneumoniasuch as Covid 19.Preliminary Report Dictated by Resident: Jimmy Galicia MD., have reviewed this study and agree withthe above report.[facility] HospitalFERRITIN [id number] 05:47:56 Test Item Value Reference Range Interpretation Comments FERRITIN (test code = 556.0 ng/mL 18.0-464.0 H 2754871458) ARELI (test code = ARELI) Biotin has been reported to cause a negative bias, interpret results relative to patient's use of biotin. Lab Interpretation (test Abnormal code = 09020-9) [facility] HospitalLACTATE [id number] 05:46:16 Test Item Value Reference Range Interpretation Comments LDH (test code = 1575648625) 1659 U/L 300-600 H Lab Interpretation (test code = Abnormal 45503-1) [facility]. METABOLIC PANEL (25889)2020-09-09 05:14:14 Test Item Value Reference Range Interpretation Comments NA (test code = 140 mmol/L 135-145 9301682324) K (test code = 3.8 mmol/L 3.5-5.0 6267683739) CL (test code = 98 mmol/L 98-108 9608809838) CO2 TOTAL (test code = 35 mmol/L 23-31 H 9253663602) AGAP (test code = 2-16 5956120747) BUN (test code = 16 mg/dL 7-23 3808471389) GLUCOSE (test code = 105 mg/dL 70-110 6865857285) CREATININE (test code = 1.08 mg/dL 0.60-1.25 8593406815) TOTAL BILI (test code = 0.8 mg/dL 0.1-1.8 6921010724) CALCIUM (test code = 9.2 mg/dL 8.6-10.6 0054842281) T PROTEIN (test code = 7.8 g/dL 6.3-8.2 9883693182) ALBUMIN (test code = 4.0 g/dL 3.5-5.0 7013786283) ALK PHOS (test code = 46 U/L 34-122 6785123452) ALTv (test code = 79 U/L 5-50 H 1742-6) AST(SGOT) (test code = 109 U/L 13-40 H 6789314394) eGFR (test code = mL/min/1.73m2 1272988433) ARELI (test code = ARELI) Association of Glomerular Filtration Rate (GFR) and Staging of Kidney Disease* + --+ --+ ------+| GFR (mL/min/1.73 m2) ?| With Kidney Damage ?| ?Without Kidney Damage+ --------+ --------+ +| ?>90 ?| ?Stage one ?| ? Normal ?+ ---+ ---+ -------+| ?60-89 ?| ?Stage two ?| ? Decreased GFR ? + --+ --+ ------+| ?30-59 ?| ?Stage three ?| ? Stage three ? + --+ --+ ------+| ?15-29 ?| ?Stage four ? | ? Stage four ?+ ---+ ---+ -------+| ?<15 (or dialysis) ? ?| ?Stage five ? | ? Stage five ?+ ---+ ---+ -------+ *Each stage assumes the associated GFR level has been in effect for at least three months. ?Stages 1 to 5, with or without kidney disease, indicate chronic kidney disease. Notes: Determination of stages one and two (with eGFR >59mL/min/1.73 m2) requires estimation of kidney damage for at least three months as defined by structural or functional abnormalities of the kidney, manifested by either:Pathological abnormalities or Markers of kidney damage (including abnormalities in the composition of the blood or urine or abnormalities in imaging tests). Lab Interpretation Abnormal (test code = 56024-0) [facility] HospitalTROPONIN [id number] 04:58:10 Test Item Value Reference Interpretation Comments Range TROPONIN I (test 0.007 ng/mL See_Comment [Automated code = 7680109225) message] The system which generated this result transmitted reference range : <=0.034. The reference range was not used to interpret this result as normal/abnormal . ARELI (test code = Reference (Normal) ARELI) Range (defined by the 99th percentile reference limit): <= 0.034 ng/mL Note: Cardiac troponin begins to rise 3-4 hours after the onset of ischemia. Repeat in 4-6 hours if the sample was drawn within 3-4 hours of the onset of the symptom and found normal. Diagnosis of myocardial injury is made with acute changes in cTn concentrations with at least one serial sample above the 99th percentile upper reference limit (URL), taken together with the patient's clinical presentation. Biotin has been reported to cause a negative bias, interpret results relative to patient's use of biotin. Lab Interpretation Normal (test code = 19769-9) [facility] HospitalN-TERMINAL [id number] 04:54:50 Test Item Value Reference Range Interpretation Comments NT-proBNP (test code 52 pg/mL See_Comment [Autom ated = [id number]) message] The system which generated this result transmitted reference range : <=125. The reference range was not used to interpret this result as normal/abnormal . ARELI (test code = ARELI) Biotin has been reported to cause a negative bias, interpret results relative to patient's use of biotin. Lab Interpretation Normal (test code = 48475-8) [facility] HospitalD-[id number] 04:43:30 Test Item Value Reference Interpretation Comments Range D-DIMER (test code = See_Comment H [Autom ated [id number]) message] The system which generated this result transmitted reference range : <0.41 ?g/mL (FEU). The reference range was not used to interpret this result as normal/abnormal . ARELI (test code = This test may be ARELI) used in conjunction with a clinical pretest probability (PTP) assessment model to exclude venous thromboembolism (VTE) in patients suspected of deep venous thrombosis (DVT) and pulmonary embolism (PE) A D-Dimer value less than 0.50 ?g/ml (FEU) has a negative predicative value of 96 to 100% (95% CI)and 97 to 100% (95% CI) as an aid in the diagnosis of deep vein thrombosis (DVT) and pulmonary embolism when there is low or moderate pretest probability of PE or DVT. D-Dimer values are expressed in initial fibrinogen equivalent units (FEU)" The assay results should be used with other information, including the clinical context, in forming a diagnosis. Lab Interpretation Abnormal (test code = 79865-3) [facility] HospitalCOVID-19 (ID NOW RAPID TESTING)2020-09-09 04:41:49 Test Item Value Reference Range Interpretation Comments SARS-CoV-2 Rapid ID NOW Positive Not Detected A (test code = 41151-9) ARELI (test code = ARELI) ID NOW COVID-19 Assay is an isothermal nucleic acid amplification test intended for the qualitative detection of nucleic acid from SARS-CoV-2 viral RNA in nasopharyngeal ([employer]NA[employer]) specimens. It is used under Emergency Use Authorization (EUA) by FDA. The limit of detection (LOD) of the assay is 125 Genome Equivalents/mL. A positive result is indicative of the presence of SARS-CoV-2 RNA. ?Clinical correlation with patient history and other diagnostic information is necessary to determine patient infection status. A negative (Not Detected) result does not preclude SARS-CoV-2 infection. In patients with clinical symptoms and other tests that are consistent with SARS-CoV-2 infection, negative results should be treated as presumptive negative and a new specimen should be tested with alternative PCR molecular test. Invalid: Please collect a new specimen for repeat patient testing if clinically indicated. Lab Interpretation Abnormal (test code = 15040-4) [facility] HospitalLactic Acid Whole [id number] 04:23:08 Test Item Value Reference Range Interpretation Comments LACTIC ACID (test code = 1.12 mmol/L 0.50-2.20 1997517298) Lab Interpretation (test code = Normal 39886-0) [facility]
--- NOTE | 2021-04-01 06:05 | ER ---
Nurse's Notes [facility] Name: Lawrence Orellana Age: 41 yrs Sex: Male : 1980 Arrival Date: 04/01/2021 Time: 05:54 Bed Waiting Private MD: Diagnosis: Acute upper respiratory infection, unspecified Presentation: 04/01 06:01 Chief complaint: Patient states: having issues with his allergies since . has sm5 been taking Nyquil with no relief. Coronavirus screen: Vaccine status: Patient reports receiving the 2nd dose of the covid vaccine. Ebola Screen: No symptoms or risks identified at this time. Onset: The symptoms/episode began/occurred last week. Anaphylaxis evaluation, no signs or symptoms of anaphylaxis were noted. Initial Sepsis Screen: Does the patient meet any 2 criteria? No. Patient's initial sepsis screen is negative. Does the patient have a suspected source of infection? No. Patient's initial sepsis screen is negative. Risk Assessment: Do you want to hurt yourself or someone else? Patient reports no desire to harm self or others. Onset of symptoms was March 28, 2021. 06:01 Method Of Arrival: Ambulatory [facility] 06:01 Acuity: NEHA 4 5 Triage Assessment: 06:04 General: Appears in no apparent distress. Behavior is appropriate for age. 5 Historical: - Allergies: 06:02 PENICILLINS; sm5 - PMHx: 06:02 None; sm5 - Immunization history:: Client reports receiving the 2nd dose of the Covid vaccine. - Social history:: Smoking status: Patient denies any tobacco usage or history of. Screenin:03 Abuse screen: Denies threats or abuse. Denies injuries from another. Nutritional 5 screening: No deficits noted. Tuberculosis screening: No symptoms or risk factors identified. Fall Risk None identified. Assessment: 06:03 Pain: Denies pain. Neuro: No deficits noted. Level of Consciousness is awake, alert, 5 Oriented to person, place, time, situation. Cardiovascular: No deficits noted. Respiratory: Airway is patent Trachea midline Respiratory effort is even, unlabored, Breath sounds are clear. EENT:. Vital Signs: 06:01 BP 158 / 107; Pulse 87; Resp 16; Temp 97.9; Pulse Ox 98% on R/A; Weight 104.33 kg; sm5 Height 5 ft. 8 in. (172.72 cm); Pain 0/10; 06:01 Body Mass Index 34.97 (104.33 kg, 172.72 cm) 5 ED Course: 05:54 Patient arrived in ED. [place] 05:56 Carla Bateman FNP-C is [facility]. 05:56 Best Quiroga MD is Attending Physician. kb 06:02 Triage completed. sm5 06:03 Arm band placed on right wrist. sm5 06:04 Patient has correct armband on for positive identification. sm5 06:04 No provider procedures requiring assistance completed. Patient did not have IV access sm5 during this emergency room visit. Administered Medications: No medications were administered Outcome: 06:05 Discharge ordered by . kb 06:08 Discharged to home ambulatory. sm5 06:08 Condition: good 06:08 Discharge instructions given to patient, Instructed on discharge instructions, follow up and referral plans. Demonstrated understanding of instructions, follow-up care. 06:08 Patient left the ED. 5 Signatures: Carla Bateman FNP-C FNP-Janeen Liang 2 Vivian Obando, RN RN 5 Corrections: (The following items were deleted from the chart) 06:04 06:01 Pulse 87bpm; Resp 16bpm; Pulse Ox 98% RA; Temp 97.9F; 104.33 kg; Height 5 ft. 8 sm5 in.; BMI: 34.9; Pain 0/10; 5
--- NOTE | 2021-04-01 06:05 | EDPHYS ---
Physician Documentation [facility] Name: Lawrence Orellana Age: 41 yrs Sex: Male : 1980 Arrival Date: 04/01/2021 Time: 05:54 Bed Waiting Private MD: ED Physician Best Quiroga HPI: 04/01 06:04 This 41 yrs old Black Male presents to ER via Ambulatory with complaints of Allergy kb Symptoms. 06:06 The patient or guardian reports cough, that is intermittent, described as mild. Onset: kb The symptoms/episode began/occurred 5 day(s) ago. Severity of symptoms: At their worst the symptoms were mild, in the emergency department the symptoms are unchanged. Modifying factors: The symptoms are alleviated by nothing, the symptoms are aggravated by nothing. Associated signs and symptoms: Pertinent positives: rhinorrhea, Pertinent negatives: chest pain, diarrhea, ear ache, fever, nausea, sore throat, vomiting. The patient has not experienced similar symptoms in the past. The patient has not recently seen a physician. Pt reports runny nose, watery eyes, and slight cough since . States "my allergies have been bothering me." Has been taking Nyquil for symptoms only. Historical: - Allergies: 06:02 PENICILLINS; sm5 - PMHx: 06:02 None; sm5 - Immunization history:: Client reports receiving the 2nd dose of the Covid vaccine. - Social history:: Smoking status: Patient denies any tobacco usage or history of. ROS: 06:07 Cardiovascular: Negative for chest pain, palpitations, and edema. kb 06:07 Constitutional: Positive for malaise, Negative for chills, fever. 06:07 Eyes: Positive for watering. 06:07 ENT: Positive for rhinorrhea, sinus congestion. 06:07 Respiratory: Positive for cough, Negative for dyspnea on exertion, hemoptysis, orthopnea, pleurisy, shortness of breath, sputum production, wheezing. 06:07 All other systems are negative. Exam: 06:07 Constitutional: This is a well developed, well nourished patient who is awake, alert, kb and in no acute distress. Head/Face: Normocephalic, atraumatic. ENT: Moist Mucous membranes Cardiovascular: Regular rate and rhythm with a normal S1 and S2. No gallops, murmurs, or rubs. No pulse deficits. Respiratory: Respirations even and unlabored. No increased work of breathing. Talking in full sentences Skin: Warm, dry with normal turgor. Normal color. MS/ Extremity: Pulses equal, no cyanosis. Neurovascular intact. Full, normal range of motion. Neuro: Awake and alert, GCS 15, oriented to person, place, time, and situation. Moves all extremities. Normal gait. Psych: Awake, alert, with orientation to person, place and time. Behavior, mood, and affect are within normal limits. Vital Signs: 06:01 BP 158 / 107; Pulse 87; Resp 16; Temp 97.9; Pulse Ox 98% on R/A; Weight 104.33 kg; sm5 Height 5 ft. 8 in. (172.72 cm); Pain 0/10; 06:01 Body Mass Index 34.97 (104.33 kg, 172.72 cm) sm5 MDM: 05:59 Patient medically screened. kb 06:06 Data reviewed: vital signs, nurses notes. Data interpreted: Pulse oximetry: on room air kb is 98 %. Interpretation: normal. Counseling: I had a detailed discussion with the patient and/or guardian regarding: the historical points, exam findings, and any diagnostic results supporting the discharge/admit diagnosis, the need for outpatient follow up, a family practitioner, to return to the emergency department if symptoms worsen or persist or if there are any questions or concerns that arise at home. 06:08 ED course: Offered covid, flu and strep testing. Pt refused. kb Administered Medications: No medications were administered Disposition: 19:33 Co-signature as Attending Physician, Best Quiroga MD I agree with the assessment and kdr plan of care. Disposition Summary: 04/01/21 06:05 Discharge Ordered Location: Home kb Condition: Stable kb Diagnosis - Acute upper respiratory infection, unspecified kb Followup: kb - With: Emergency Department - When: As needed - Reason: Worsening of condition Followup: kb - With: Private Physician - When: 2 - 3 days - Reason: Recheck today's complaints, Continuance of care, Re-evaluation by your physician Discharge Instructions: - Discharge Summary Sheet kb - Upper Respiratory Infection, Adult, [id number] kb - Viral Respiratory Infection, [id number] kb Forms: - Medication Reconciliation Form kb - Thank You Letter kb - Antibiotic Education kb - Prescription Opioid Use kb Signatures: Carla Bateman, BONDING MOLDER-C BONDING MOLDER-Ckb Best Quiroga MD MD kdr Mazur, Sarah, RN RN sm5
[2021-04-01 06:13] VITALS: BP 158/107; TEMP 97.9; O2SAT 98
== END 2021-04-01 06:08 | disposition home or self-care (01) ==
LOC: ER 05:49
DX: J06.9 Acute upper respiratory infection, unspecified (principal); Z53.29 Procedure and treatment not carried out because of patient's decision for other reasons; Z88.0 Allergy status to penicillin
CPT/HCPCS: 99281

== ENCOUNTER 2021-08-15 11:40 | Emergency (ER) | payer BC, SELFPAY ==
--- NOTE | 2021-08-15 12:53 | ER ---
Nurse's Notes [facility] Name: Lawrence Orellana Age: 41 yrs Sex: Male : 1980 Arrival Date: 08/15/2021 Time: 11:43 Bed Waiting Private MD: Diagnosis: ED Course: 08/15 11:43 Patient arrived in ED. rg4 11:53 [facility] gustavo 11:53 Lawrence Crocker DO is Attending Physician. gustavo Administered Medications: No medications were administered Outcome: 12:52 Patient left the ED. vg1 Signatures: Reynold Thornton PA PA jmm Garcia, Rubi rg4 Fatmata Blanco, RN RN vg1
== END 2021-08-15 12:52 | disposition left against medical advice (07) ==
LOC: ER 11:40
DX: Z02.9 Encounter for administrative examinations, unspecified (principal)

== ENCOUNTER 2022-04-17 21:21 | Emergency (ER) | payer SELFPAY ==
--- OUTSIDE RECORDS SUMMARY | 2022-04-17 21:27 | XMS REPORT | Continuity of Care Document ---
:1980 Author Organization [facility] t Address [address] [facility] [address] [place] [address] Care Team Providers Name Role Phone BRIDGET SOLER Primary Care Physician Unavailable ELENA OLEARY Attending Clinician Unavailable Elena Oleary MD Attending Clinician CELIA ARREAGA Attending Clinician Unavailable Celia Arreaga DO Attending Clinician RODRIGO Attending Clinician Unavailable EDNA VANG Attending Clinician Unavailable Edna Vang DO Attending Clinician Doctor Unassigned, [place] Attending Clinician Unavailable Meeta Linton Attending Clinician Jasmine Maxwell LVN Attending Clinician POLINA RICHMOND Attending Clinician Unavailable Polina Richmond MD Attending Clinician Michelle Cavazos Attending Clinician MARY ZUNIGA Attending Clinician Unavailable FRANCISCO GHOSH Attending Clinician Unavailable JORDAN OG Attending Clinician Unavailable ELENA OLEARY Admitting Clinician Unavailable RODRIGO Admitting Clinician Unavailable POLINA RICHMOND Admitting Clinician Unavailable Polina Richmond MD Admitting Clinician CELIA ARREAGA Admitting Clinician Unavailable FRANCISCO GHOSH Admitting Clinician Unavailable Payers Payer Name Policy Type Policy Number Effective Date Expiration Date S meghna [employer] [place] - [id number] 2019 OUT OF STATE 00:00:00 COVID19 HRSA [id number] 2020 2020 UNINSURED 00:00:00 00:00:00 [facility] [id number] 2015 2017 PLUS 00:00:00 00:00:00 Problems Condition Condition Condition Status Onset Resolution Last Treating Co mments Source Name Details Category Date Date Treatment Clinician Date Abnormal Abnormal Disease Active Unive rs EKG EKG 09-10 ity of 00:00: Medical Branch COVID-19 COVID-19 Disease Active Unive rs virus virus 09-10 ity of detected detected 00:00: Medical Branch Pneumonia Pneumonia Disease Active Uni vers due to due to 09-10 ity of COVID-19 COVID-19 00:00: [place] virus virus 00 Medical Branch Other Other Disease Active Univers chest pain chest pain 09-10 it y of 00:00: Medical Branch Respirator Respirator Disease Active U nivers y failure y failure 09-09 ity of 00:00: Medical Branch Obesity Obesity Disease Active 2015-02 Univers (BMI (BMI 2-16 ity of 30-39.9) 30-39.9) 00:00: Medical Branch Allergies, Adverse Reactions, Alerts Allergy Allergy Status Severity Reaction(s) Onset Inactive Treating Comm ents Source Name Type Date Date Clinician PENICILL Drug Active Hives Univers INS Class 1-29 ity of 00:00: [place] 00 Medical Branch Penicill Propensi Active Hives Univer s ins ty to 1- ity of adverse 00:00: [place] reaction 00 Medical s Branch Penicill Propensi Active Hives Univer s ins ty to 03-09 ity of adverse 00:00: [place] reaction Medical s Branch Penicill Propensi Active Hives Univer s ins ty to 03-09 ity of adverse 00:00: [place] reaction Medical s Branch Social History Social Habit Start Date Stop Date Quantity Comments Source Exposure to 2021-12-07 2021-12-17 Not sure [facility] SARS-CoV-2 (event) 00:00:00 22:43:00 Medica l Branch Sex Ass[birth year] At [birth year] [facility] 00:00:00 00:00:00 Medical Branch Smoking Status Start Date Stop Date Source Tobacco smoking consumption [facility] Medical unknown Branch Medications Ordered Filled Start Stop Current Ordering Indication Dosage Frequency Signature Comments Components Source Medication Medication Date Date Medication? Clinician (SIG) Name Name meclizine 2021-02- No 25mg 25 mg, Unive rs (TRAVEL-EAS 02-17- Oral, ity of E 05:15: 05:21 ONCE, 1 [place] (MECLIZINE) 00 :00 dose, On Medi carrie ) tablet 25 Tue Branch mg 12/17/21 at 2315, ESHA meclizine 2021-02 Yes [id number] 25mg Take 1 U nivers 25 mg 02-17 tablet by ity of tablet 00:00: mouth [place] 00 every 6 Medical (six) Branch hours. fluorescein 2021- No 1{strip 1 Strip, Univers ophthalmic 08-31 } Left Eye, ity of strip 1 14:00: 12:54 ONCE, 1 [place] Strip 00 :00 dose, On Medical Sat Branch 08/31/21 at 0900, Routine tetracaine 2021- No 1[drp] 1 Drop, U nivers (PONTOCAINE 08-31 Left Eye, it y of ) 0.5 % 14:00: 12:55 ONCE, 1 [place] ophthalmic 00 :00 dose, On Medic al drops 1 Sat Branch Drop 08/31/21 at 0900, Routine erythromyci 2021- No [id number] .5[in_u Place 0.5 Univers n 5 mg/gram 08-31 400602 s] Inches in ity of (0.5 %) 00:00: 04:59 left eye [place] ophthalmic 00 :00 at bedtime Med ical ointment for 7 Branch days. Continue until you follow up with eye doctor. ketorolac 2021- No 30mg 30 mg, Unive rs (TORADOL) 3-07 03-07 Intramuscu ity of injection 20:15: 19:26 lar, ONCE, [place] 30 mg 00 :00 1 dose, On Medical 04/15/21 Branch at 1415, ESHA naproxen 2021-0 Yes [id number] 550mg Take 1 U nivers sodium 3-07 tablet by ity of (ANAPROX 00:00: mouth 2 [place] DS) 550 mg 00 (two) Medical tablet times Branch daily with meals. methylPREDN 2021-0 Yes [id number] Take by Univers ISolone 3-07 mouth ity of (MEDROL, 00:00: SEE-INSTRU [place] as SHIRA,) 4 mg 00 CTIONS. Medica l tablets follow Branch package directions naproxen 2021-0 Yes [id number] 550mg Take 1 U nivers sodium 3-07 tablet by ity of (ANAPROX 00:00: mouth 2 [place] DS) 550 mg 00 (two) Medical tablet times Branch daily with meals. methylPREDN 2021-0 Yes [id number] Take by Univers ISolone 3-07 mouth ity of (MEDROL, 00:00: SEE-INSTRU [place] as SHIRA,) 4 mg 00 CTIONS. Medica l tablets follow Branch package directions naproxen 2021-0 Yes [id number] 550mg Take 1 U nivers sodium 3-07 tablet by ity of (ANAPROX 00:00: mouth 2 [place] DS) 550 mg 00 (two) Medical tablet times Branch daily with meals. methylPREDN 2021-0 Yes [id number] Take by Univers ISolone 3-07 mouth ity of (MEDROL, 00:00: SEE-INSTRU [place] as SHIRA,) 4 mg 00 CTIONS. Medica l tablets follow Branch package directions methocarbam 2021-0 2021- No [id number] 500mg Take 1 Univers oL 500 mg 04-15 03-13 tablet by ity of tablet 00:00: 05:59 mouth 3 [place] 00 :00 (three) Medical times Branch daily for 5 days. aspirin 81 2020-0 Yes [id number] 81mg Take 1 Univers mg chewable 8-04 tablet by ity of tablet 00:00: mouth [place] 00 daily. Medical Branch cholecalcif 2020-0 Yes [id number] 2000U Take 2 Univers misty, 8-04 tablets by ity of vitamin D3, 00:00: mouth [place] 25 mcg 00 daily. Medical (1,000 Branch unit) tablet aspirin 81 2020-0 Yes [id number] 81mg Take 1 Univers mg chewable 8-04 tablet by ity of tablet 00:00: mouth [place] 00 daily. Medical Branch cholecalcif 2020-0 Yes [id number] 2000U Take 2 Univers misty, 8-04 tablets by ity of vitamin D3, 00:00: mouth [place] 25 mcg 00 daily. Medical (1,000 Branch unit) tablet aspirin 81 2020-0 Yes [id number] 81mg Take 1 Univers mg chewable 8-04 tablet by ity of tablet 00:00: mouth [place] 00 daily. Medical Branch cholecalcif 2020-0 Yes [id number] 2000U Take 2 Univers misty, 8-04 tablets by ity of vitamin D3, 00:00: mouth [place] 25 mcg 00 daily. Medical (1,000 Branch unit) tablet aspirin 81 2020-0 Yes [id number] 81mg Take 1 Univers mg chewable 8-04 tablet by ity of tablet 00:00: mouth [place] 00 daily. Medical Branch cholecalcif 2020-0 Yes [id number] 2000U Take 2 Univers misty, 8-04 tablets by ity of vitamin D3, 00:00: mouth [place] 25 mcg 00 daily. Medical (1,000 Branch unit) tablet aspirin 81 2020-0 Yes [id number] 81mg Take 1 Univers mg chewable 8-04 tablet by ity of tablet 00:00: mouth [place] 00 daily. Medical Branch cholecalcif 2020-0 Yes [id number] 2000U Take 2 Univers misty, 8-04 tablets by ity of vitamin D3, 00:00: mouth [place] 25 mcg 00 daily. Medical (1,000 Branch unit) tablet aspirin 81 2020-0 Yes [id number] 81mg Take 1 Univers mg chewable 8-04 tablet by ity of tablet 00:00: mouth [place] 00 daily. Medical Branch cholecalcif 2020-0 Yes [id number] 2000U Take 2 Univers misty, 8-04 tablets by ity of vitamin D3, 00:00: mouth [place] 25 mcg 00 daily. Medical (1,000 Branch unit) tablet aspirin 81 2020-0 Yes [id number] 81mg Take 1 Univers mg chewable 8-04 tablet by ity of tablet 00:00: mouth [place] 00 daily. Medical Branch cholecalcif 0 Yes [id number] 2000U Take 2 Univers misty, 8-04 tablets by ity of vitamin D3, 00:00: mouth [place] 25 mcg 00 daily. Medical (1,000 Branch unit) tablet aspirin 81 0 Yes [id number] 81mg Take 1 Univers mg chewable 8-04 tablet by ity of tablet 00:00: mouth [place] 00 daily. Medical Branch cholecalcif 0 Yes [id number] 2000U Take 2 Univers misty, 8-04 tablets by ity of vitamin D3, 00:00: mouth [place] 25 mcg 00 daily. Medical (1,000 Branch unit) tablet aspirin 81 0 Yes [id number] 81mg Take 1 Univers mg chewable 8-04 tablet by ity of tablet 00:00: mouth [place] 00 daily. Medical Branch cholecalcif 0 Yes [id number] 2000U Take 2 Univers misty, 8-04 tablets by ity of vitamin D3, 00:00: mouth [place] 25 mcg 00 daily. Medical (1,000 Branch unit) tablet albuterol Yes [id number] 2{puff} Inhale 2 Univers 90 8-03 Puffs ity of mcg/actuati 00:00: every 4 [place] as on inhaler 00 (four) Medical hours as Branch needed for Wheezing or Shortness of Breath. ascorbic 0 Yes [id number] 1000mg Take 1 Univers acid, 8-03 tablet by ity of vitamin C, 00:00: mouth [place] 1,000 mg 00 daily. Medical tablet Branch albuterol 0 Yes [id number] 2{puff} Inhale 2 Univers 90 8-03 Puffs ity of mcg/actuati 00:00: every 4 [place] as on inhaler 00 (four) Medical hours as Branch needed for Wheezing or Shortness of Breath. ascorbic 0 Yes [id number] 1000mg Take 1 Univers acid, 8-03 tablet by ity of vitamin C, 00:00: mouth [place] 1,000 mg 00 daily. Medical tablet Branch albuterol 0 Yes [id number] 2{puff} Inhale 2 Univers 90 8-03 Puffs ity of mcg/actuati 00:00: every 4 [place] as on inhaler 00 (four) Medical hours as Branch needed for Wheezing or Shortness of Breath. ascorbic Yes [id number] 1000mg Take 1 Univers acid, 8-03 tablet by ity of vitamin C, 00:00: mouth [place] 1,000 mg 00 daily. Medical tablet Branch albuterol Yes [id number] 2{puff} Inhale 2 Univers 90 8-03 Puffs ity of mcg/actuati 00:00: every 4 [place] as on inhaler 00 (four) Medical hours as Branch needed for Wheezing or Shortness of Breath. ascorbic Yes [id number] 1000mg Take 1 Univers acid, 8-03 tablet by ity of vitamin C, 00:00: mouth [place] 1,000 mg 00 daily. Medical tablet Branch albuterol Yes [id number] 2{puff} Inhale 2 Univers 90 8-03 Puffs ity of mcg/actuati 00:00: every 4 [place] as on inhaler 00 (four) Medical hours as Branch needed for Wheezing or Shortness of Breath. ascorbic Yes [id number] 1000mg Take 1 Univers acid, 8-03 tablet by ity of vitamin C, 00:00: mouth [place] 1,000 mg 00 daily. Medical tablet Branch albuterol Yes [id number] 2{puff} Inhale 2 Univers 90 8-03 Puffs ity of mcg/actuati 00:00: every 4 [place] as on inhaler 00 (four) Medical hours as Branch needed for Wheezing or Shortness of Breath. ascorbic Yes [id number] 1000mg Take 1 Univers acid, 8-03 tablet by ity of vitamin C, 00:00: mouth [place] 1,000 mg 00 daily. Medical tablet Branch albuterol Yes [id number] 2{puff} Inhale 2 Univers 90 8-03 Puffs ity of mcg/actuati 00:00: every 4 [place] as on inhaler 00 (four) Medical hours as Branch needed for Wheezing or Shortness of Breath. ascorbic 0 Yes [id number] 1000mg Take 1 Univers acid, 8-03 tablet by ity of vitamin C, 00:00: mouth [place] 1,000 mg 00 daily. Medical tablet Branch albuterol Yes [id number] 2{puff} Inhale 2 Univers 90 8-03 Puffs ity of mcg/actuati 00:00: every 4 [place] as on inhaler 00 (four) Medical hours as Branch needed for Wheezing or Shortness of Breath. ascorbic Yes [id number] 1000mg Take 1 Univers acid, 8-03 tablet by ity of vitamin C, 00:00: mouth [place] 1,000 mg 00 daily. Medical tablet Branch albuterol Yes [id number] 2{puff} Inhale 2 Univers 90 8-03 Puffs ity of mcg/actuati 00:00: every 4 [place] as on inhaler 00 (four) Medical hours as Branch needed for Wheezing or Shortness of Breath. ascorbic Yes [id number] 1000mg Take 1 Univers acid, 8-03 tablet by ity of vitamin C, 00:00: mouth [place] 1,000 mg 00 daily. Medical tablet Branch dexAMETHaso 2020- No [id number] 6mg Take 1 Univers ne 6 mg 09-11-09 tablet by ity of tablet 00:00: 04:59 mouth [place] 00 :00 daily with Medical breakfast Branch for 5 days. dexAMETHaso 2020- No [id number] 6mg Take 1 Univers ne 6 mg [...] albuterol-i Yes 1{puff} 1 Puff, Univers pratropium 09-10 Inhalation ity of (COMBIVENT 14:15: , Q6H, [place] RESPIMAT) 00 First dose Medi carrie 20-100 on Thu Branch mcg/actuati 09/10/20 at on inhaler 0915, 1 Puff Until Discontinu ed, Routine
Is this order for a patient with suspected or confirmed COVID-19 infection? Yes zinc Yes 220mg 220 mg, Univers sulfate 8 Oral, ity of (ORAZINC) 14:00: DAILY, [place] capsule 220 00 First dose Me dical mg on Mon Branch 09/10/20 at 0900, Until Discontinu ed, Routine cholecalcif 0 Yes 1000U 1,000 Univ ers misty 09-10 Units, ity of (vitamin 14:00: Oral, [place] D3) tablet 00 DAILY, Medical 1,000 Units First dose Br anch on Thu09/10/20 at 0900, Until Discontinu ed, Routine dexamethaso 0 202- No 6mg 6 mg, IV U nivers [...] First dose [place] mg 00 on [facility] Medical 09/10/20 at Branch 0845, Until Discontinu ed, Routine ascorbic 0 Yes 500mg 500 mg, Unive rs acid 09-10 Oral, BID, ity of (vitamin C) 13:45: First dose [place] (VITAMIN C) 00 on Mon Medica l tablet 500 09/10/20 at Bran ch mg 0845, Until Discontinu ed, Routine benzonatate 0 Yes 100mg 100 mg, Un patricia (TESSALON 09-10 Oral, TID, ity of PERLES) 13:45: First dose [place] capsule 100 00 on Mon Medica l mg 09/10/20 at Branch 0845, Until Discontinu ed, Routine albuterol 0 Yes 2{puff} 2 Puff, Un patricia (VENTOLIN) 09-10 Inhalation ity of inhaler 2 13:37: , Q4HPRN, [place] as Puff 12 Starting Medical [facility] 09/10/20 Branch at 0837, Until Discontinu ed, Routine, Wheezing, Shortness of Breath codeine-gua 0 Yes 5mL 5 mL, Unive rs ifenesin 09-10 Oral, ity of (ROBITUSSIN 06:07: Q4HPRN, [place] AC) 10-100 17 Starting Medic al mg/5 mL 09/10/20 Branch solution 5 at 0107, mL Until Discontinu ed, Routine, Cough enoxaparin Yes 40mg 40 mg, Unive rs (LOVENOX) 09-09 Subcutaneo ity of injection 22:00: [place], DAILY, [place] 40 mg 00 First dose [facility] 09/09/20 at 1700, Until Discontinu ed, Routine iopamidol 2020- No [id number] 100mL 100 mL, Univers (ISOVUE 09-09 Intravenou ity o f 370-500 mL) 07:00: 05:52 s, ONCE, 1 [place] injection 00 :00 dose, [place] Medic al 100 mL 09/09/20 at Branch 0200, Routine dexamethaso No 10mg 10 mg, IV Univers ne 09-09 Push, ity of (DECADRON 06:45: 06:26 ONCE, 1 [place] PHOSPHATE) 00 :00 dose, [place] Medi carrie injection 09/09/20 at Branc h 10 mg 0145, STAT levoFLOXaci 2020- No 750mg 750 mg, IV Univers n in D5W 09-09 Piggyback, ity of (LEVAQUIN) 05:45: 07:59 Administer [place] 750 mg/150 00 :00 over 90 Medica l mL Minutes, [place] Piggyback ONCE, 1 750 mg dose, [place] 09/09/20 at 0045, ESHA
Re ason for Anti-Infec tive: Empiric Therapy for Suspected Infection< br>Empiric Therapy Site: Respirator y
Durat ion of therapy: 72 hours codeine-gua 2020- No 10mL 10 mL, Uni vers ifenesin 09-09 Oral, ity of (ROBITUSSIN 05:09: 05:19 ONCE, 1 [place] AC) 10-100 00 :00 dose, [place] Medi carrie mg/5 mL 09/09/20 at Branch solution 10 0015, ESHA mL NaCl 0.9% 2021-0 Yes 5mL 5 mL, Slow Un patricia (NS) 8-01 IV Push, ity of injection 5 04:01: PRN - SEE [place] mL 12 [facility] Medical NS, Branch Starting 09/08/20 at 2301, Until Discontinu ed, 10 mL methocarbam Yes 500mg 500 mg, Un patricia oL 5-30 Oral, QID, ity of (ROBAXIN) 17:00: First dose [place] tablet 500 00 on [facility] mg 07/08/20 at Branch 1200, Until Discontinu ed, Routine ibuprofen 2020- No 800mg 800 mg, Uni vers (IBU) 5-30 05-30 Oral, ity of tablet 800 17:00: 16:05 ONCE, 1 [place] mg 00 :00 dose, [facility] 07/08/20 at [place] 1200, ESHA No known No Univers medications [facility] Immunizations Ordered Filled Immunization Date Status Comments [facility] e Immunization Name Name Td 2021-08-31 Completed [facility] 00:00:00 [facility] Td 2021-08-31 Completed [facility] 00:00:00 [facility] Vital Signs Vital Name Observation Time Observation Value Comments Source Systolic blood 2021-12-18 06:30:00 142 mm[Hg] Univer sity of pressure [facility] Diastolic blood 2021-12-18 06:30:00 104 [facility]Hg[facility] 2021-12-18 06:30:00 80 /min [facility] Oxygen saturation in 2021-12-18 06:30:00 97 /min [facility] Arterial blood by [facility] Pulse oximetry [place] Body temperature 2021-12-18 04:46:00 36.89 Kailey [facility] Respiratory rate 2021-12-18 04:46:00 16 /min [facility] Body height 2021-12-18 04:46:00 172.7 cm [facility] Body weight 2021-12-18 04:46:00 106.142 kg [facility] BMI 2021-12-18 04:46:00 35.58 kg/m2 [facility] Systolic blood 2021-08-31 12:46:00 167 mm[Hg] Univer sity of pressure [place] [facility] Diastolic blood 2021-08-31 12:46:00 89 mm[Hg] Unive rsity of pressure [place] [facility] Heart rate 2021-08-31 12:46:00 79 /min Universi ty of [place] [facility] Body temperature 2021-08-31 12:46:00 36.17 Kailey Univ ersity of [place] [facility] Respiratory rate 2021-08-31 12:46:00 16 /min Univ ersity of [place] [facility] Body height 2021-08-31 12:46:00 172.7 cm Universi ty of [place] [facility] Body weight 2021-08-31 12:46:00 104.327 kg Universi ty of [place] [facility] BMI 2021-08-31 12:46:00 34.97 kg/m2 Universi ty of [place] [facility] Oxygen saturation in 2021-08-31 12:46:00 97 /min University of Arterial blood by [place] Wannyi carrie Pulse oximetry Branch Systolic blood 2021-04-15 18:19:00 155 mm[Hg] Univer sity of pressure [place] [facility] Diastolic blood 2021-04-15 18:19:00 92 mm[Hg] Unive rsity of pressure [place] [facility] Heart rate 2021-04-15 18:16:00 87 /min Universi ty of [place] [facility] Body temperature 2021-04-15 18:16:00 36.83 Kailey Univ ersity of [place] [facility] Respiratory rate 2021-04-15 18:16:00 16 /min Univ ersity of [place] [facility] Body height 2021-04-15 18:16:00 172.7 cm Universi ty of [place] [facility] Body weight 2021-04-15 18:16:00 104.327 kg Universi ty of [place] [facility] BMI 2021-04-15 18:16:00 34.97 kg/m2 Universi ty of [place] [facility] Oxygen saturation in 2021-04-15 18:16:00 97 /min University of Arterial blood by [place] Wannyi carrie Pulse oximetry Branch Respiratory rate 2020-09-11 18:43:00 22 /min Univ ersity of [place] [facility] Oxygen saturation in 2020-09-11 18:43:00 95 /min University of Arterial blood by [place] Wannyi carrie Pulse oximetry Branch Systolic blood 2020-09-11 17:00:00 91 mm[Hg] Univer sity of pressure [facility] Diastolic blood 2020-09-11 17:00:00 47 mm[Hg] Unive rsity of pressure [facility] Heart rate 2020-09-11 17:00:00 74 /min Universi ty of [facility] Body temperature 2020-09-11 12:55:00 36.33 Kailey Univ ersity of [facility] Body height 2020-09-09 13:41:00 172.7 cm Universi ty of [facility] Body weight 2020-09-09 13:41:00 101.969 kg Universi ty of [facility] BMI 2020-09-09 13:41:00 34.18 kg/m2 Universi ty of [facility] Systolic blood 2020-07-08 15:47:00 139 mm[Hg] Univer sity of pressure [facility] Diastolic blood 2020-07-08 15:47:00 93 mm[Hg] Unive rsity of [facility] Heart rate 2020-07-08 15:47:00 89 /min Universi ty of [facility] Body temperature 2020-07-08 15:47:00 37.28 Kailey Univ ersity of [facility] Respiratory rate 2020-07-08 15:47:00 18 /min Univ ersity of [facility] Body weight 2020-07-08 15:47:00 106.595 kg Universi ty of [facility] BMI 2020-07-08 15:47:00 35.73 kg/m2 Universi ty of [facility] Oxygen saturation in 2020-07-08 15:47:00 96 /min [facility] Arterial blood by [facility] Pulse oximetry Branch Systolic blood 2020-07-08 15:47:00 139 mm[Hg] Univer sity of pressure [facility] Diastolic blood 2020-07-08 15:47:00 93 mm[Hg] Unive rsity of pressure [facility] Heart rate 2020-07-08 15:47:00 89 /min Universi ty of [facility] Body temperature 2020-07-08 15:47:00 37.28 Kailey Univ ersity of [facility] Respiratory rate 2020-07-08 15:47:00 18 /min Univ ersity of [facility] Body weight 2020-07-08 15:47:00 106.595 kg [facility] BMI 2020-07-08 15:47:00 35.73 kg/m2 [facility] Oxygen saturation in 2020-07-08 15:47:00 96 /min [facility] Arterial blood by [facility] Pulse oximetry Branch Procedures Procedure Date / Time Performing Clinician Source Performed CT HEAD WO CONTRAST 2021-12-18 05:33:39 Elena Oleary [facility] BASIC METABOLIC PANEL 2021-12-18 05:25:00 Elena Oleary [facility] (NA, K, CL, CO2, GLUCOSE, Medica l Branch BUN, CREATININE, CA) CBC WITH DIFF 2021-12-18 05:25:00 Elena Oleary [facility] CONSENT/REFUSAL FOR 2021-12-18 04:39:04 Doctor Unassjesse, [facility] DIAGNOSIS AND TREATMENT [place] [facility] [place] CONSENT/REFUSAL FOR 2021-08-31 12:41:11 Doctor Unatatiana, [facility] DIAGNOSIS AND TREATMENT [place] [facility] [place] NOTICE OF PRIVACY 2021-04-15 18:07:40 Doctor Unatatiana, [facility] PRACTICES [place] [facility] [place] CONSENT/REFUSAL FOR 2021-04-15 18:06:47 Doctor Eddie, [facility] DIAGNOSIS AND TREATMENT [place] [facility] [place] EXTERNAL PROVIDER - ADC 2020-10-15 05:01:00 Doctor Unatatiana, [facility] REFERRAL [place] [facility] [place] COMP. METABOLIC PANEL 2020-09-11 08:49:00 Obie Brown [facility] ([id number]) Medical Branch TRANSTHORACIC ECHO (TTE) 2020-09-10 18:08:34 Alyssa Calderon [facility] COMPLETE Medical [place] TROPONIN I 2020-09-10 10:19:00 Alyssa Calderon [facility] COMP. METABOLIC PANEL 2020-09-10 10:19:00 Kevin [facility] ([id number]) Medical Branch TROPONIN I 2020-09-09 23:39:00 Polina Richmond [facility] TROPONIN I 2020-09-09 16:26:00 Polina Richmond [facility] CHEST PULMONARY 2020-09-09 05:58:12 Elena Oleary [facility] ANGIOGRAM Medical Branch LACTATE DEHYDROGENASE 2020-09-09 05:19:00 Elena Oleary [facility] CBC WITH DIFF 2020-09-09 05:19:00 Elena Oleary [facility] GLYCOSYLATED HEMOGLOBIN 2020-09-09 05:19:00 Obie Brown [facility] (A1C) [facility] PROCALCITONIN 2020-09-09 05:19:00 Elena Oleary [facility] XR CHEST 1 VW 2020-09-09 04:46:12 Elena Oleary [facility] LACTIC ACID WHOLE BLOOD 2020-09-09 04:12:00 Elena Oleary [facility] BLOOD CULTURE SCREEN 2020-09-09 04:11:00 Elena Oleary [facility] FERRITIN SERUM 2020-09-09 04:11:00 Elena Oleary [facility] TROPONIN I 2020-09-09 04:11:00 Elena Oleary [facility] COMP. METABOLIC PANEL 2020-09-09 04:11:00 Elena Oleary [facility] ([id number]) [facility] D-DIMER 2020-09-09 04:11:00 Elena Oleary [facility] N-TERMINAL PRO-BNP 2020-09-09 04:11:00 Elena Oleary [facility] COVID-19 (ID NOW RAPID 2020-09-09 04:11:00 Elena Oleary [facility] TESTING) [facility] LAB ONLY COVID 2020-09-09 04:11:00 Elena Oleary [facility] INTERPRETATION [facility] HB ECG ROUTINE & RHYTHM 2020-09-09 03:52:47 Elena Oleary [facility] CONSENT/REFUSAL FOR 2020-09-09 03:18:[address]ár[address] molina [facility] DIAGNOSIS AND TREATMENT [place] [facility] CONSENT/REFUSAL FOR 2020-07-08 15:36:[address] DIAGNOSIS AND TREATMENT [place] [facility] Encounters Start End Encounter Admission Attending Care Care Encounter Source Date/Time Date/Time Type Type Clinicians Facility Department ID 2020-12-09 Emergency [facility] [id number] Univers 22:10:23 itludin [facility] 2021-12-17 2021-12-18 Emergency [facility] [id number] Univers 22:48:00 00:38:00 NDPADMAJA buck [facility] 2021-12-17 2021-12-18 [facility] [id number] Univers 22:48:00 00:38:00 Crystalsheron Schreiber MALIHA 350.1.13.10 ity [facility] 4.2.7.2.686 [facility] [phone] [address] 2021-08-31 2021-08-31 Emergency Jez [facility] [id number] Univers 07:49:00 08:24:00 CELIA buck [facility] 2021-08-31 2021-08-31 [facility] 1.2.840.114 [id number] Univers 07:49:00 08:24:00 Celia JETT 350.1.13.10 ity [facility] 4.2.7.2.686 [facility] [id number] [address] 2021-08-23 2021-08-23 Outpatient [facility] [address] [place] 10:24:00 10:24:00 N 0715 da [facility] Outre h Program 2021-04-15 2021-04-15 Marcos [facility] [id number] Univers 12:23:00 13:45:00 EDNA buck [facility] 2021-04-15 2021-04-15 Marcos [facility] [id number] Univers 12:23:00 13:45:00 Edna JETT 350.1.13.10 i ty [place] [phone] [facility] [address] 2021-04-15 2021-04-15 Orders Doctor ANSHUL 1.2.840.114 [id number] Univers 00:00:00 00:00:00 Only Unassigned, RIN 350.1.13.10 ity of [place] [facility] 4.2.7.2.686 Dylon as [id number] [facility] [address] 2020-10-18 2020-10-18 Letter ANSHUL Mcallister 1.2.840.114 [id number] Univers 00:00:00 00:00:00 (Out) Meeta RIN 350.1.13.10 it y of HOSPITAL 4.2.7.2.686 Dylon as [phone] [facility] [address] 2020-10-15 2020-10-15 Orders Doctor ANSHUL 1.2.840.114 [id number] Univers 00:00:00 00:00:00 Only Unassigned, RIN 350.1.13.10 ity of [place] [facility] 4.2.7.2.686 Dylon as [id number] [facility] [address] 2020-09-12 2020-09-12 Transition Jessy Maxwell 1.2.840.114 [id number] Univers 00:00:00 00:00:00 of Care Jasmine Agrawaly 350.1.13.10 [place] [id number] [facility] [address] 2020-09-08 2020-09-11 Inpatient X YI [facility] [id number] Univers 22:42:00 17:37:00 KHALED ity of [facility] 2020-09-08 2020-09-11 Hospital Elena Oleary S [facility] 1.2.840. 114 [id number] Univers 22:42:00 17:37:00 Encounter Polina Richmond 350.1.13.10 [place] [phone] [facility] [address] 2020-07-08 2020-07-08 [facility] 1.2.840.114 [id number] Univers 10:49:00 12:02:00 Michelle Jett 350.1.13.10 i ty of [place] 4.2.7.2.686 [facility] [phone] [address] 2020-07-08 2020-07-08 [facility] 1.2.840.114 [id number] 10:49:00 12:02:00 Michelle Jett 350.1.13.10 [place] 4.2.7.2.686 [place] [id number] [facility] 2020-03-19 2020-03-19 Emergency [facility] [id number] Univers 18:02:00 19:20:00 MARY [facility] 2019-02-01 2019-02-01 Emergency [facility] [id number] Univers 00:37:40 01:11:00 CELIA [facility] 2019-01-18 2019-01-18 Emergency [facility]RT [id number] Univers 12:47:22 14:12:00 FRANCISCO [facility] 2016-01-23 2016-01-23 Outpatient R [facility] SOS [id number] Univers 00:00:00 00:00:00 JORDAN [facility] Results Test Description Test Time Test Comments Results Result Comments Source COMP. METABOLIC PANEL (06854) 2020-09-11 11:09:00 Test Item Value Reference Range Interpretation Comme nts NA (test code = 0228462307) 138 mmol/L 135-145 K (test code = 3678409214) 4.3 mmol/L 3.5-5.0 CL (test code = 1127271205) 102 mmol/L 98-108 CO2 TOTAL (test code = 5006952518) 27 mmol/L 23-31 AGAP (test code = 2824661255) 2-16 BUN (test code = 9532401962) 21 mg/dL 7-23 GLUCOSE (test code = 1854060657) 118 mg/dL 70-110 H CREATININE (test code = 0.83 mg/dL 0.60-1.25 4448756824) TOTAL BILI (test code = 0.6 mg/dL 0.1-1.2 5439210077) CALCIUM (test code = 5815103355) 9.0 mg/dL 8.6-10.6 T PROTEIN (test code = 5236223190) 6.6 g/dL 6.3-8.2 ALBUMIN (test code = 0109922758) 3.4 g/dL 3.5-5.0 L ALK PHOS (test code = 5208528637) 38 U/L 34-122 ALTv (test code = 1742-6) 67 U/L 5-50 H AST(SGOT) (test code = 5695370428) 52 U/L 13-40 H eGFR (test code = 3596985261) mL/min/1.73m2 ARELI (test code = ARELI) Association [...] tests). Lab Interpretation (test code = Abnormal 18360-3) [facility] ONLY COVID [id number] 22:06:43COVID DMT InterpretationInterpretation/Recommendations:Molecular NAAT Tests for Active [...] COVID-19 testing the patient has had at [facility], including molecular NAAT testing (more commonly known as PCR testing and Rapid ID Now testing) and antibody testing. It does not take into account any testing that a patient has had outside of the [facility] medical record. [facility] LABORATORY SERVICESCOVID RyciabxHOJP-ZaB-2 Rapid ID NOW (no units) ? ? Date ? Value ? 09/08/2020 ? Positive (A) ? [facility] LABORATORY SERVICESUnT[facility] Medical CenterCB WITH [id number] 21:18:20 Test Item Value Reference Range Interpretation Comments WBC (test code = See_Comment L [Automated 7290-2) message] The system which generated this result transmit les reference range : 4.20 - 10.70 10*3/?L. The reference range was not used to interpret this result as normal/abnormal . RBC (test code = See_Comment [Automated 789-8) message] The system which generated this result [...] RDW-SD (test code = 40.1 fL 38.5-51.6 57032-3) RDW-CV (test code = 12.3 % 12.1-15.4 788-0) PLT (test code = See_Comment [Automated 777-3) message] The system which generated this result transmit les reference range : 150 - 328 10*3/ ?L. The reference range was not u sed to interpret th is result as normal/abnormal . MPV (test code = 11.2 fL 9.8-13.0 68046-2) NRBC/100 WBC (test See_Comment [Automat ed code = 5912893024) message] The system which generated this result transmit les reference range : 0.0 - 10.0 /100 WBCs. The reference range was not used to interpret this result as normal/abnormal . NRBC x10^3 (test code <0.01 See_Comment [Auto mated = 8639551483) message] The system which generated this result transmit les reference range : 10*3/?L. The reference range was not used to interpret this result as normal/abnormal . SEG % (test code = 50 % 33-76 42066-6) BAND % (test code = 4 % 0-1 H 86978-7) LYMPH % (test code = 33 % 14-54 53042-7) ATYP LYMPH % (test 4 % See_Comment H Reviewed by Lopez code = 1798371274) Lucille Dimas, Director of HEMATOPATHOLOGY . [Automated message] The system which generated this result transmit les reference range : <=0. The refere nce range was not u sed to interpret th is result as normal/abnormal . PLSMACYTD LYMPH % 1 % See_Comment H [Automate d (test code = 02010-2) messag e] The system which generated this result transmit les reference range : <=0. The refere nce range was not u sed to interpret th is result as normal/abnormal . MONO % (test code = 8 % 0-4 H 82930-4) ARELI (test code = ARELI) Reviewed by Lopez Dimas M.D., Director of HEMATOPATHOLOGY . Lab Interpretation Abnormal (test code = 60213-1) [facility]GLOB[facility] (A1C)2020-09-10 14:48:30 Test Item Value Reference Range Interpretation Comments HGB A1C (test code = 5.8 % 4.0-5.7 H 4548-4) ARELI (test code = ARELI) Reference RangesNormal: <5.7%Prediabetes: 5.7 - 6.4%Diabetes: > 6.5% Lab Interpretation (test Abnormal code = 46098-8) [facility] WorthTROPONIN [id number] 11:31:01 Test Item Value Reference Interpretation Comments Range TROPONIN I (test 0.004 ng/mL See_Comment [Automated code = 0910385917) message] The system which generated this result [...] biotin. Lab Interpretation Normal (test code = 10709-0) [facility]. METABOLIC PANEL (13197)2020-09-10 11:28:40 Test Item Value Reference Range Interpretation Comments NA (test code = 137 mmol/L 135-145 4264638528) K (test code = 4.2 mmol/L 3.5-5.0 2051308242) CL (test code = 100 mmol/L 98-108 8214593326) CO2 TOTAL (test code = 31 mmol/L 23-31 3844281974) AGAP (test code = 2-16 1210075778) BUN (test code = 19 mg/dL 7-23 8768744970) GLUCOSE (test code = 147 mg/dL 70-110 H 8263349612) CREATININE (test code = 0.92 mg/dL 0.60-1.25 7575254240) TOTAL BILI (test code = 0.7 mg/dL 0.1-1.9 7522495466) CALCIUM (test code = 9.2 mg/dL 8.6-10.6 7282720066) T PROTEIN (test code = 7.2 g/dL 6.3-8.2 5664516829) ALBUMIN (test code = 3.6 g/dL 3.5-5.0 1514512104) ALK PHOS (test code = 35 U/L 34-122 0527025433) ALTv (test code = 68 U/L 5-50 H 1742-6) AST(SGOT) (test code = 68 U/L 13-40 H 0399044109) eGFR (test code = mL/min/1.73m2 6775417703) ARELI (test code = ARELI) Association of [...] tests). Lab Interpretation Abnormal (test code = 11082-5) [facility] WorthMorris [id number] 00:17:22 Test Item Value Reference Interpretation Comments Range TROPONIN I (test 0.002 ng/mL See_Comment [Automated code = 5954099599) message] The system which generated this result [...] biotin. Lab Interpretation Normal (test code = 44515-0) [facility] WorthPROCALCITONIN2021-08-01 17:49:43 Test Item Value Reference Range Interpretation Comments Procalcitonin (test 0.05 ng/mL <0.07 code = 7239322902) ARELI (test code = ARELI) INTERPRETATION OF [...] lung abscess/empyema. For further information please refer to:[email or web address] Lab Interpretation Normal (test code = 62947-6) [facility] WorthTroponin [id number] 17:38:19 Test Item Value Reference Interpretation Comments Range TROPONIN I (test 0.003 ng/mL See_Comment [Automated code = 0518730583) message] The system which generated this result [...] biotin. Lab Interpretation Normal (test code = 28253-7) [facility] WorthXR CHEST 1 [id number] 17:21:17 Multifocal bilateral airspace opacities suggestive of [...] Results Inft User - 09/09/2020 12:22 PM CDTFormatting of this note might be different fromthe original.EXAM: XR CHEST 1 VWCOMPARISON: NoneHISTORY: SOB FINDINGS:Lungs: The lungs are moderately expanded. Multifocal bilateral hazyairspace opacities. No pleural effusion or pneumothorax is seen.H eart/Mediastinum: The cardiomediastinal silhouette is normal in sizeaccounting for technique.Bones: No osseous lesions are detected. The soft tissues appear normalIMPRESSIONMultifocal bilateral airspace opacities suggestive of atypical viralpneumonia such as Covid 19.Preliminary Report Dictated by Resident: Jimmy Galicia MD., have reviewed this study and agree withthe above report.[facility] WorthCT CHEST PULMONARY [id number] 14:45:21 Suboptimal evaluation due to due to inadequate opacification of thepulmonary arteries (segmental and subsegmental branches). No filling defectis seen in the pulmonary trunk, main pulmonary arteries and lobar branches. Multifocal bilateral glass opacities suggestive of atypical viral pneumoniasuch as Covid 19. Preliminary Report Dictated by Resident: Jimmy Hawkins MD., have reviewed this study and agree withthe above report.PROCEDURE: CT CHEST WITH CONTRAST- CHEST PE PROTOCOL CLINICAL INDICATION: PE suspected, intermediate prob, positive D-dimer ? Comparison: ?None TECHNIQUE: Volumetric helical CT angiogram was performed of the chest (lungapices to bases) with IV contrast. Images were reconstructed at 1.25 mmslice thickness. Corresponding axial, sagittal and coronalMIP images wereperformed. Axial MIPs and coronal and sagittal MPR images were generatedand reviewed.. FINDINGS: Devices: None HEART AND GREAT VESSELS: The opacification of the pulmonary vasculature isnondiagnostic for segmental and subsegmental branches (1:30 7HU). Nofilling defects are seen through the pulmonary trunk, main pulmonaryarteries and lobar branches..The pulmonary trunk is normal in caliber. The thoracic aorta is normal in caliber. [...] bodypseudoarticulation, likely due to unfused ossification centers. [facility], Radiant Results Inft User - 09/09/2020 9:46 AM CDT PROCEDURE: CT CHEST WITH CONTRAST- CHEST PE VT OTOCOLCLINICAL INDICATION: PE suspected, intermediate prob, positive D-dimer [...] sternal bodypseudoarticulation, likely due to unfused ossification centers.IMPRESSIONSuboptimal evaluation due to due to inadequate opacification of thepulmonary arteries (segmental and subsegmental branches). No filling defectis seen in the pulmonarytrunk, main pulmonary arteries and lobar branches.Multifocal bilateral glass opacities suggestive ofatypical viral pneumoniasuch as Covid 19.Preliminary Report Dictated by Resident: Jimmy Galicia MD., have reviewed this study and agree withthe above report.[facility] WorthFERRITIN [id number] 05:47:56 Test Item Value Reference Range Interpretation Comments FERRITIN (test code = 556.0 ng/mL 18.0-464.0 H 6876233777) ARELI (test code = ARELI) Biotin has been reported to cause a negative bias, interpret results relative to patient's use of biotin. Lab Interpretation (test Abnormal code = 98681-7) [facility] WorthLACTATE [id number] 05:46:16 Test Item Value Reference Range Interpretation Comments LDH (test code = 9176889813) 1659 U/L 300-600 H Lab Interpretation (test code = Abnormal 20359-9) [facility] WorthCOMP. METABOLIC PANEL (02915)2020-09-09 05:14:14 Test Item Value Reference Range Interpretation Comments NA (test code = 140 mmol/L 135-145 3118810840) K (test code = 3.8 mmol/L 3.5-5.0 3507395563) CL (test code = 98 mmol/L 98-108 7626114592) CO2 TOTAL (test code = 35 mmol/L 23-31 H 8123043828) AGAP (test code = 2-16 7495870127) BUN (test code = 16 mg/dL 7-23 6228029770) GLUCOSE (test code = 105 mg/dL 70-110 7932296707) CREATININE (test code = 1.08 mg/dL 0.60-1.25 8227953807) TOTAL BILI (test code = 0.8 mg/dL 0.1-1.1 0523237841) CALCIUM (test code = 9.2 mg/dL 8.6-10.6 4814770510) T PROTEIN (test code = 7.8 g/dL 6.3-8.2 7902184135) ALBUMIN (test code = 4.0 g/dL 3.5-5.0 4295478328) ALK PHOS (test code = 46 U/L 34-122 8685655267) ALTv (test code = 79 U/L 5-50 H 1742-6) AST(SGOT) (test code = 109 U/L 13-40 H 8036917942) eGFR (test code = mL/min/1.73m2 1886754593) ARELI (test code = ARELI) Association of [...] tests). Lab Interpretation Abnormal (test code = 82589-7) [facility] WorthTROPONIN [id number] 04:58:10 Test Item Value Reference Interpretation Comments Range TROPONIN I (test 0.007 ng/mL See_Comment [Automated code = 1901789430) message] The system which generated this result [...] biotin. Lab Interpretation Normal (test code = 70668-9) [facility] WorthN-TERMINAL [id number] 04:54:50 Test Item Value Reference Range Interpretation Comments NT-proBNP (test code 52 pg/mL See_Comment [Autom ated = 5497015361) message] The system which generated this result transmitted reference range : <=125. The reference range was not used to interpret this result as normal/abnormal . ARELI (test code = ARELI) Biotin has been reported to cause a negative bias, interpret results relative to patient's use of biotin. Lab Interpretation Normal (test code = 25951-3) [facility] WorthD-[id number] 04:43:30 Test Item Value Reference Interpretation Comments Range D-DIMER (test code = See_Comment H [Autom ated 1112609928) message] The system which generated this result [...] diagnosis. Lab Interpretation Abnormal (test code = 00901-3) [facility] WorthCOVID-19 (ID NOW RAPID TESTING)2020-09-09 04:41:49 Test Item Value Reference Range Interpretation Comments SARS-CoV-2 Rapid ID NOW Positive Not Detected A (test code = 26080-3) ARELI (test code = ARELI) ID NOW COVID-19 Assay is an isothermal nucleic acid amplification test intended for the qualitative detection of nucleic acid from SARS-CoV-2 viral RNA in nasopharyngeal (INSPECTOR METAL CAN) specimens. It is used under Emergency Use [...] indicated. Lab Interpretation Abnormal (test code = 07787-5) [facility] WorthLactic Acid Whole [id number] 04:23:08 Test Item Value Reference Range Interpretation Comments LACTIC ACID (test code = 1.12 mmol/L 0.50-2.20 0610288178) Lab Interpretation (test code = Normal 39419-6) [facility]
[2022-04-17 22:51] VITALS: BP 117/53; TEMP 98.1; O2SAT 98
--- NOTE | 2022-05-02 15:25 | ER ---
Nurse's Notes [facility] Name: Lawrence Orellana Age: 42 yrs Sex: Male : 1980 Arrival Date: 04/17/2022 Time: 21:25 Bed Waiting Private MD: Diagnosis: Insect bite (nonvenomous), right lower leg;Insect bite (nonvenomous) of right forearm, initial encounter;Insect bite (nonvenomous) of left forearm, initial encounter Presentation: 04/17 21:38 Chief complaint: Patient states: he was moving furniture for his job today and was bb exposed to bed bugs now his arms and legs are itching. Coronavirus screen: At this time, the client does not indicate any symptoms associated with coronavirus-19. Ebola Screen: No symptoms or risks identified at this time. Initial Sepsis Screen: Does the patient meet any 2 criteria? No. Patient's initial sepsis screen is negative. Does the patient have a suspected source of infection? No. Patient's initial sepsis screen is negative. Risk Assessment: Do you want to hurt yourself or someone else? Patient reports no desire to harm self or others. Onset of symptoms was April 17, 2022. 21:38 Method Of Arrival: Ambulatory bb 21:38 Acuity: NEHA 5 bb Triage Assessment: 21:39 Bite description: bite sustained to arms and legs by bed bug, animal information: bb vaccination(s) is not applicable. General: Appears in no apparent distress. Behavior is calm, cooperative. Pain: Denies pain. Neuro: Level of Consciousness is awake, alert, obeys commands, Oriented to person, place, time, situation. Cardiovascular: Capillary refill < 3 seconds Patient's skin is warm and dry. Respiratory: Respiratory effort is even, unlabored, Respiratory pattern is regular. GI: No signs and/or symptoms were reported involving the gastrointestinal system. Derm: Reports itching. Musculoskeletal: Circulation, motion, and sensation intact. Historical: - Allergies: 21:39 PENICILLINS; bb - Home Meds: 21:39 None [Active]; bb - PMHx: 21:39 None; bb - PSHx: 21:39 None; bb - Immunization history:: vaccinated. - Social history:: Smoking status: Patient reports use of chewing tobacco. Assessment: 21:49 Reassessment: pt seen in triage by Serge CHAND and discharged pt verbalized bb understanding of and agrees to plan of care discharge instructions given pt ambulated with steady gait to exit. Vital Signs: 21:38 BP 117 / 53; Pulse 78; Resp 16 S; Temp 98.1(O); Pulse Ox 98% on R/A; Weight 108.86 kg bb (R); Height 5 ft. 8 in. (R); 21:38 Body Mass Index 36.49 (108.86 kg, 172.72 cm) bb ED Course: 21:25 Patient arrived in ED. mr 21:39 Triage completed. bb 21:39 Arm band placed on. bb 21:42 Serge Gomez PA is PHCP. cp 21:42 Serge Duarte MD is Attending Physician. cp 21:49 Patient has correct armband on for positive identification. bb 21:49 No provider procedures requiring assistance completed. Patient did not have IV access bb during this emergency room visit. Administered Medications: No medications were administered Medication: 21:49 VIS not applicable for this client. bb Outcome: 21:49 Discharged to home ambulatory. bb 21:49 Condition: stable 21:49 Discharge instructions given to patient, Instructed on discharge instructions, follow up and referral plans. medication usage, Demonstrated understanding of instructions, follow-up care, medications, Prescriptions given X 1. 21:51 Discharge ordered by . cp 21:59 Patient left the ED. bb 22:05 Patient left the ED. bb Signatures: Andie Davenport mr MurrayIsatu, RN RN bb Serge Gomez PA PA cp
--- NOTE | 2022-05-02 15:26 | EDPHYS ---
Physician Documentation [facility] Name: Lawrence Orellana Age: 42 yrs Sex: Male : 1980 Arrival Date: 04/17/2022 Time: 21:25 Bed Waiting Private MD: MELODY Physician Serge Duarte HPI: 04/17 21:48 This 42 yrs old Black Male presents to ER via Ambulatory with complaints of Insect Bite.cp 21:48 The patient was bitten on the right arm, left arm and right leg, by bedbugs. Onset: The cp symptoms/episode began/occurred today. . 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 Historical: - Allergies: 21:39 PENICILLINS; bb - Home Meds: 21:39 None [Active]; bb - PMHx: 21:39 None; bb - PSHx: 21:39 None; bb - Immunization history:: vaccinated. - Social history:: Smoking status: Patient reports use of chewing tobacco. ROS: 21:50 Constitutional: Negative for fever. cp 21:50 Cardiovascular: Negative for chest pain, palpitations. cp 21:50 Respiratory: Negative for cough, shortness of breath, wheezing. 21:50 Abdomen/GI: Negative for abdominal pain, nausea, vomiting, and diarrhea. 21:50 Neuro: Negative for altered mental status, headache, weakness. 21:50 All other systems are negative. Exam: 21:50 Constitutional: The patient appears in no acute distress, alert, awake, non-toxic, well cp developed, well nourished. 21:50 Head/Face: Normocephalic, atraumatic. cp 21:50 Cardiovascular: Rate: normal, Rhythm: regular. 21:50 Respiratory: the patient does not display signs of respiratory distress, Respirations: normal, no use of accessory muscles, no retractions, labored breathing, is not present. 21:50 Abdomen/GI: Exam negative for discomfort, distension, guarding, Inspection: abdomen appears normal. 21:50 Skin: multiple, superficial bite wounds noted right forearm and left forearm and right lower leg. Vital Signs: 21:38 BP 117 / 53; Pulse 78; Resp 16 S; Temp 98.1(O); Pulse Ox 98% on R/A; Weight 108.86 kg bb (R); Height 5 ft. 8 in. (R); 21:38 Body Mass Index 36.49 (108.86 kg, 172.72 cm) bb MDM: 21:51 Patient medically screened. cp 21:51 Data reviewed: vital signs, nurses notes. cp 21:51 Differential diagnosis: cellulitis, abscess. Counseling: I had a detailed discussion cp with the patient and/or guardian regarding: the historical points, exam findings, and any diagnostic results supporting the discharge/admit diagnosis, to return to the emergency department if symptoms worsen or persist or if there are any questions or concerns that arise at home. Administered Medications: No medications were administered Disposition Summary: 04/17/22 21:51 Discharge Ordered Location: Home cp Problem: new cp Symptoms: are unchanged cp Condition: Stable cp Diagnosis - Insect bite (nonvenomous), right lower leg cp - Insect bite (nonvenomous) of right forearm, initial encounter cp - Insect bite (nonvenomous) of left forearm, initial encounter cp Followup: cp - With: Private Physician - When: 1 - 2 days - Reason: Worsening of condition Discharge Instructions: - Discharge Summary Sheet bb - Toi cp Forms: - Work release form bb - Medication Reconciliation Form cp - Thank You Letter cp - Antibiotic Education cp - Prescription Opioid Use cp Prescriptions: - Zyrtec 10 mg Oral Tablet - take 1 tablet by ORAL route once daily As needed; 20 tablet; Refills: 0, cp Product Selection Permitted - Medrol (Jaden) 4 mg Oral Tablets, Dose Pack - take 1 tablet by ORAL route as directed - follow package instructions; 1 cp packet; Refills: 0, Product Selection Permitted Signatures: Isatu Murray RN RN Serge White PA PA cp Corrections: (The following items were deleted from the chart) 04/18 20:59 04/17 21:48 The patient was bitten on the right arm, left arm and right leg, by cp bedbugs, cp
== END 2022-04-17 22:05 | disposition home or self-care (01) ==
LOC: ER 21:21
DX: S80.861A Insect bite (nonvenomous), right lower leg, initial encounter (principal); S50.862A Insect bite (nonvenomous) of left forearm, initial encounter; S50.861A Insect bite (nonvenomous) of right forearm, initial encounter
CPT/HCPCS: 99282

== ENCOUNTER 2022-04-30 21:37 | Emergency (ER) | payer SELFPAY ==
--- OUTSIDE RECORDS SUMMARY | 2022-04-30 21:41 | XMS REPORT | Continuity of Care Document ---
:1980 Author Organization [facility] t Address [address] [facility] [address] [place] [address] Care Team Providers Name Role Phone BRIDGET SOLER Primary Care Physician Unavailable ELENA OLEARY Attending Clinician Unavailable Elena Oleary MD Attending Clinician CELIA ARREAGA Attending Clinician Unavailable Celia Arreaga DO Attending Clinician RODRIGO Attending Clinician Unavailable EDNA VANG Attending Clinician Unavailable Edna Vang DO Attending Clinician Doctor Unassigned, [place] Attending Clinician Unavailable Meeta Linton Attending Clinician [...] Date Expiration Date S meghna [employer] [place] - [id number] 2019 OUT OF STATE 00:00:00 COVID19 HRSA [id number] 2020 2020 UNINSURED 00:00:00 00:00:00 [facility] [id number] 2015 2017 PLUS 00:00:00 00:00:00 Problems Condition [...] Source Exposure to 2021-12-07 2021-12-17 Not sure [facility] SARS-CoV-2 (event) 00:00:00 22:43:00 Medica l Branch Sex Assigned At [birth year] [facility] 00:00:00 00:00:00 Medical Branch Smoking Status Start Date Stop Date Source Tobacco smoking consumption [facility] Medical unknown Branch Medications Ordered Filled Start Stop Current Ordering Indication Dosage Frequency Signature Comments Components Source Medication Medication Date Date Medication? Clinician (SIG) Name Name meclizine 2021-02- No 25mg 25 mg, Unive rs (TRAVEL-EAS 02-17- Oral, ity of E 05:15: 05:21 ONCE, 1 [place] (MECLIZINE) 00 :00 dose, On Medi carrie ) tablet 25 Tue Branch mg 12/17/21 at 2315, ESHA meclizine 2021-02 Yes [id number] 25mg Take 1 U nivers 25 mg 02-17 tablet by ity of tablet 00:00: mouth [place] 00 every 6 Medical (six) Branch hours. fluorescein 2021- No 1{strip 1 Strip, Univers ophthalmic 08-31 } Left Eye, ity of strip 1 14:00: 12:54 ONCE, 1 [place] Strip 00 :00 dose, On Medical Sat Branch 08/31/21 at 0900, Routine tetracaine 2021- No 1[drp] 1 Drop, U nivers (PONTOCAINE 08-31 Left Eye, it y of ) 0.5 % 14:00: 12:55 ONCE, 1 [place] ophthalmic 00 :00 dose, On Medic al drops 1 Sat Branch Drop 08/31/21 at 0900, Routine erythromyci 2021- No [id number] .5[in_u Place 0.5 Univers n 5 mg/gram 08-31 [id number] s] Inches in ity of (0.5 %) [...] Branch at 1415, ESHA naproxen 2021-0 Yes [id number] 550mg Take 1 U nivers sodium 3-07 tablet by ity of (ANAPROX 00:00: mouth 2 [place] DS) 550 mg 00 (two) Medical tablet times Branch daily with meals. methylPREDN 2021-0 Yes [id number] Take by Univers ISolone 3-07 mouth ity of (MEDROL, 00:00: SEE-INSTRU [place] as SHIRA,) 4 mg 00 CTIONS. Medica l tablets follow Branch package directions naproxen 2021-0 Yes [id number] 550mg Take 1 U nivers sodium 3-07 tablet by ity of (ANAPROX 00:00: mouth 2 [place] DS) 550 mg 00 (two) Medical tablet times Branch daily with meals. methylPREDN 2021-0 Yes [id number] Take by Univers ISolone 3-07 mouth ity of (MEDROL, 00:00: SEE-INSTRU [place] as SHIRA,) 4 mg 00 CTIONS. Medica l tablets follow Branch package directions naproxen 2021-0 Yes [id number] 550mg Take 1 U nivers sodium 3-07 tablet by ity of (ANAPROX 00:00: mouth 2 [place] DS) 550 mg 00 (two) Medical tablet times Branch daily with meals. methylPREDN 2021-0 Yes [id number] Take by Univers ISolone 3-07 mouth ity of (MEDROL, 00:00: SEE-INSTRU [place] as SHIRA,) 4 mg 00 CTIONS. Medica l tablets follow Branch package directions methocarbam 2021-0 2021- No [id number] 500mg Take 1 Univers oL 500 mg 04-15 03-13 tablet by ity of tablet 00:00: 05:59 mouth 3 [place] 00 :00 (three) Medical times Branch daily for 5 days. aspirin 81 2020-0 Yes [id number] 81mg Take 1 Univers mg chewable 8-04 tablet by ity of tablet 00:00: mouth [place] 00 daily. Medical Branch cholecalcif 2020-0 Yes [id number] 2000U Take 2 Univers misty, 8-04 tablets by ity of vitamin D3, 00:00: mouth [place] 25 mcg 00 daily. Medical (1,000 Branch unit) tablet aspirin 81 2020-0 Yes [id number] 81mg Take 1 Univers mg chewable 8-04 tablet by ity of tablet 00:00: mouth [place] 00 daily. Medical Branch cholecalcif 2020-0 Yes [id number] 2000U Take 2 Univers misty, 8-04 tablets by ity of vitamin D3, 00:00: mouth [place] 25 mcg 00 daily. Medical (1,000 Branch unit) tablet aspirin 81 2020-0 Yes [id number] 81mg Take 1 Univers mg chewable 8-04 tablet by ity of tablet 00:00: mouth [place] 00 daily. Medical Branch cholecalcif 2020-0 Yes [id number] 2000U Take 2 Univers misty, 8-04 tablets by ity of vitamin D3, 00:00: mouth [place] 25 mcg 00 daily. Medical (1,000 Branch unit) tablet aspirin 81 2020-0 Yes [id number] 81mg Take 1 Univers mg chewable 8-04 tablet by ity of tablet 00:00: mouth [place] 00 daily. Medical Branch cholecalcif 2020-0 Yes [id number] 2000U Take 2 Univers misty, 8-04 tablets by ity of vitamin D3, 00:00: mouth [place] 25 mcg 00 daily. Medical (1,000 Branch unit) tablet aspirin 81 2020-0 Yes [id number] 81mg Take 1 Univers mg chewable 8-04 tablet by ity of tablet 00:00: mouth [place] 00 daily. Medical Branch cholecalcif 2020-0 Yes [id number] 2000U Take 2 Univers misty, 8-04 tablets by ity of vitamin D3, 00:00: mouth [place] 25 mcg 00 daily. Medical (1,000 Branch unit) tablet aspirin 81 2020-0 Yes [id number] 81mg Take 1 Univers mg chewable 8-04 tablet by ity of tablet 00:00: mouth [place] 00 daily. Medical Branch cholecalcif 2020-0 Yes [id number] 2000U Take 2 Univers misty, 8-04 tablets by ity of vitamin D3, 00:00: mouth [place] 25 mcg 00 daily. Medical (1,000 Branch unit) tablet aspirin 81 2020-0 Yes [id number] 81mg Take 1 Univers mg chewable 8-04 tablet by ity of tablet 00:00: mouth [place] 00 daily. Medical Branch cholecalcif 0 Yes [id number] 2000U Take 2 Univers misty, 8-04 tablets by ity of vitamin D3, 00:00: mouth [place] 25 mcg 00 daily. Medical (1,000 Branch unit) tablet aspirin 81 0 Yes [id number] 81mg Take 1 Univers mg chewable 8-04 tablet by ity of tablet 00:00: mouth [place] 00 daily. Medical Branch cholecalcif 0 Yes [id number] 2000U Take 2 Univers misty, 8-04 tablets by ity of vitamin D3, 00:00: mouth [place] 25 mcg 00 daily. Medical (1,000 Branch unit) tablet aspirin 81 0 Yes [id number] 81mg Take 1 Univers mg chewable 8-04 tablet by ity of tablet 00:00: mouth [place] 00 daily. Medical Branch cholecalcif 0 Yes [id number] 2000U Take 2 Univers misty, 8-04 tablets by ity of vitamin D3, 00:00: mouth [place] 25 mcg 00 daily. Medical (1,000 Branch unit) tablet albuterol Yes [id number] 2{puff} Inhale 2 Univers 90 8-03 Puffs ity of mcg/actuati 00:00: every 4 [place] as on inhaler 00 (four) Medical hours as Branch needed for Wheezing or Shortness of Breath. ascorbic 0 Yes [id number] 1000mg Take 1 Univers acid, 8-03 tablet by ity of vitamin C, 00:00: mouth [place] 1,000 mg 00 daily. Medical tablet Branch albuterol 0 Yes [id number] 2{puff} Inhale 2 Univers 90 8-03 Puffs ity of mcg/actuati 00:00: every 4 [place] as on inhaler 00 (four) Medical hours as Branch needed for Wheezing or Shortness of Breath. ascorbic 0 Yes [id number] 1000mg Take 1 Univers acid, 8-03 tablet by ity of vitamin C, 00:00: mouth [place] 1,000 mg 00 daily. Medical tablet Branch albuterol 0 Yes [id number] 2{puff} Inhale 2 Univers 90 8-03 Puffs ity of mcg/actuati 00:00: every 4 [place] as on inhaler 00 (four) Medical hours as Branch needed for Wheezing or Shortness of Breath. ascorbic Yes [id number] 1000mg Take 1 Univers acid, 8-03 tablet by ity of vitamin C, 00:00: mouth [place] 1,000 mg 00 daily. Medical tablet Branch albuterol Yes [id number] 2{puff} Inhale 2 Univers 90 8-03 Puffs ity of mcg/actuati 00:00: every 4 [place] as on inhaler 00 (four) Medical hours as Branch needed for Wheezing or Shortness of Breath. ascorbic Yes [id number] 1000mg Take 1 Univers acid, 8-03 tablet by ity of vitamin C, 00:00: mouth [place] 1,000 mg 00 daily. Medical tablet Branch albuterol Yes [id number] 2{puff} Inhale 2 Univers 90 8-03 Puffs ity of mcg/actuati 00:00: every 4 [place] as on inhaler 00 (four) Medical hours as Branch needed for Wheezing or Shortness of Breath. ascorbic Yes [id number] 1000mg Take 1 Univers acid, 8-03 tablet by ity of vitamin C, 00:00: mouth [place] 1,000 mg 00 daily. Medical tablet Branch albuterol Yes [id number] 2{puff} Inhale 2 Univers 90 8-03 Puffs ity of mcg/actuati 00:00: every 4 [place] as on inhaler 00 (four) Medical hours as Branch needed for Wheezing or Shortness of Breath. ascorbic Yes [id number] 1000mg Take 1 Univers acid, 8-03 tablet by ity of vitamin C, 00:00: mouth [place] 1,000 mg 00 daily. Medical tablet Branch albuterol Yes [id number] 2{puff} Inhale 2 Univers 90 8-03 Puffs ity of mcg/actuati 00:00: every 4 [place] as on inhaler 00 (four) Medical hours as Branch needed for Wheezing or Shortness of Breath. ascorbic 0 Yes [id number] 1000mg Take 1 Univers acid, 8-03 tablet by ity of vitamin C, 00:00: mouth [place] 1,000 mg 00 daily. Medical tablet Branch albuterol Yes [id number] 2{puff} Inhale 2 Univers 90 8-03 Puffs ity of mcg/actuati 00:00: every 4 [place] as on inhaler 00 (four) Medical hours as Branch needed for Wheezing or Shortness of Breath. ascorbic Yes [id number] 1000mg Take 1 Univers acid, 8-03 tablet by ity of vitamin C, 00:00: mouth [place] 1,000 mg 00 daily. Medical tablet Branch albuterol Yes [id number] 2{puff} Inhale 2 Univers 90 8-03 Puffs ity of mcg/actuati 00:00: every 4 [place] as on inhaler 00 (four) Medical hours as Branch needed for Wheezing or Shortness of Breath. ascorbic Yes [id number] 1000mg Take 1 Univers acid, 8-03 tablet by ity of vitamin C, 00:00: mouth [place] 1,000 mg 00 daily. Medical tablet Branch dexAMETHaso 2020- No [id number] 6mg Take 1 Univers ne 6 mg 09-11-09 tablet by ity of tablet 00:00: 04:59 mouth [place] 00 :00 daily with Medical breakfast Branch for 5 days. dexAMETHaso 2020- No [id number] 6mg Take 1 Univers ne 6 mg [...] [place] dose [place] mg 00 on [facility] Medical 09/10/20 at Branch 0845, Until Discontinu [...] Q4HPRN, [place] as Puff 12 Starting Medical [facility] 09/10/20 Branch at 0837, Until Discontinu ed, [...] 40 mg 00 First dose Medical on [facility] 09/09/20 at 1700, Until Discontinu ed, Routine iopamidol 2020- No [id number] 100mL 100 mL, Univers (ISOVUE 09-09 Intravenou ity o f 370-500 mL) 07:00: 05:52 s, ONCE, 1 [place] injection 00 :00 dose, [place] Medic al 100 mL 09/09/20 at Branch 0200, Routine dexamethaso No 10mg 10 mg, IV Univers ne 09-09 Push, ity of (DECADRON 06:45: 06:26 ONCE, 1 [place] PHOSPHATE) 00 :00 dose, [place] Medi carrie injection 09/09/20 at Branc h 10 mg 0145, STAT levoFLOXaci 2020- No 750mg 750 mg, IV Univers n in D5W 09-09 Piggyback, ity of (LEVAQUIN) 05:45: 07:59 Administer [place] 750 mg/150 00 :00 over 90 Medica l mL Minutes, [place] Piggyback ONCE, 1 750 mg dose, [place] 09/09/20 at 0045, ESHA
Re ason for Anti-Infec tive: Empiric Therapy for Suspected Infection< br>Empiric Therapy Site: Respirator y
Durat ion of therapy: 72 hours codeine-gua 2020- No 10mL 10 mL, Uni vers ifenesin 09-09 Oral, ity of (ROBITUSSIN 05:09: 05:19 ONCE, 1 [place] AC) 10-100 00 :00 dose, [place] Medi carrie mg/5 mL 09/09/20 at Branch solution 10 0015, ESHA mL NaCl 0.9% 2021-0 Yes 5mL 5 mL, Slow Un patricia (NS) 8-01 IV Push, ity of injection 5 04:01: PRN - SEE [place] mL 12 [facility] Medical NS, Branch Starting 09/08/20 at 2301, [...] 00 :00 dose, [facility] 07/08/20 at [place] 1200, ESHA No known No Univers medications [facility] Immunizations Ordered Filled Immunization Date Status Comments [facility] e Immunization Name Name Td 2021-08-31 Completed [facility] 00:00:00 [facility] Td 2021-08-31 Completed [facility] 00:00:00 [facility] Vital Signs Vital Name Observation Time Observation Value Comments Source Systolic blood 2021-12-18 06:30:00 142 mm[Hg] Univer sity of pressure [facility] Diastolic blood 2021-12-18 06:30:00 104 mm[Hg] [facility] 2021-12-18 06:30:00 80 /min [facility] Oxygen saturation in 2021-12-18 06:30:00 97 /min [facility] Arterial blood by [facility] Pulse oximetry [place] Body temperature 2021-12-18 04:46:00 36.89 Kailey [facility] Respiratory rate 2021-12-18 04:46:00 16 /min [facility] Body height 2021-12-18 04:46:00 172.7 cm [facility] Body weight 2021-12-18 04:46:00 106.142 kg [facility] BMI 2021-12-18 04:46:00 35.58 kg/m2 [facility] Systolic blood 2021-08-31 12:46:00 167 mm[Hg] Univer sity of pressure [place] [facility] Diastolic blood 2021-08-31 12:46:00 89 mm[Hg] Unive rsity of pressure [place] [facility] Heart rate 2021-08-31 12:46:00 79 /min [facility]i [facility] [place] [facility] Body temperature 2021-08-31 12:46:00 36.17 Kailey Univ ersity of [place] [facility] Respiratory rate 2021-08-31 12:46:00 16 /min Univ ersity of [place] [facility] Body height 2021-08-31 12:46:00 172.7 cm [facility] [place] [facility] Body weight 2021-08-31 12:46:00 104.327 kg [facility] [place] [facility] BMI 2021-08-31 12:46:00 34.97 kg/m2 Universi ty [facility] [place] [facility] Oxygen saturation in 2021-08-31 12:46:00 97 /min University of Arterial blood by [place] [employer] carrie Pulse oximetry Branch Systolic blood 2021-04-15 18:19:00 155 mm[Hg] Univer sity of pressure [place] [facility] Diastolic blood 2021-04-15 18:19:00 92 mm[Hg] Unive rsity of pressure [place] [facility] Heart rate 2021-04-15 18:16:00 87 /min Universi ty of [place] [facility] Body temperature 2021-04-15 18:16:00 36.83 Kailey Univ ersity of [place] [facility] Respiratory rate 2021-04-15 18:16:00 16 /min Univ ersity of [place] [facility] Body height 2021-04-15 18:16:00 172.7 cm [facility]i [facility] [place] [facility] Body weight 2021-04-15 18:16:00 104.327 kg Universi [facility] [place] [facility] BMI 2021-04-15 18:16:00 34.97 kg/m2 Universi [facility] [place] [facility] Oxygen saturation in 2021-04-15 18:16:00 97 /min University of Arterial blood by [place] [employer] carrie Pulse oximetry Branch Respiratory rate 2020-09-11 18:43:00 22 /min Univ ersity of [place] [facility] Oxygen saturation in 2020-09-11 18:43:00 95 /min University of Arterial blood by [place] [employer] carrie Pulse oximetry Branch Systolic blood 2020-09-11 17:00:00 91 mm[Hg] Univer sity of pressure [facility] Diastolic blood 2020-09-11 17:00:00 47 mm[Hg] Unive rsity of pressure [facility] Heart rate 2020-09-11 17:00:00 74 /min Universi ty of [facility] Body temperature 2020-09-11 12:55:00 36.33 Kailey Univ ersity of [facility] Body height 2020-09-09 13:41:00 172.7 cm Universi ty of [facility] Body weight 2020-09-09 13:41:00 101.969 kg Universi ty of [facility] BMI 2020-09-09 13:41:00 34.18 kg/m2 Universi ty of [facility] Systolic blood 2020-07-08 15:47:00 139 mm[Hg] Univer sity of pressure [facility] Diastolic blood 2020-07-08 15:47:00 93 mm[Hg] Unive rsity of [facility] Heart rate 2020-07-08 15:47:00 89 /min Universi ty of [facility] Body temperature 2020-07-08 15:47:00 37.28 Kailey Univ ersity of [facility] Respiratory rate 2020-07-08 15:47:00 18 /min Univ ersity of [facility] Body weight 2020-07-08 15:47:00 106.595 kg Universi ty of [facility] BMI 2020-07-08 15:47:00 35.73 kg/m2 Universi ty of [facility] Oxygen saturation in 2020-07-08 15:47:00 96 /min [facility] Arterial blood by [facility] Pulse oximetry Branch Systolic blood 2020-07-08 15:47:00 139 mm[Hg] Univer sity of pressure [facility] Diastolic blood 2020-07-08 15:47:00 93 mm[Hg] Unive rsity of pressure [facility] Heart rate 2020-07-08 15:47:00 89 /min Universi ty of [facility] Body temperature 2020-07-08 15:47:00 37.28 Kailey Univ ersity of [facility] Respiratory rate 2020-07-08 15:47:00 18 /min Univ ersity of [facility] Body weight 2020-07-08 15:47:00 106.595 kg [facility] BMI 2020-07-08 15:47:00 35.73 kg/m2 [facility] Oxygen saturation in 2020-07-08 15:47:00 96 /min [facility] Arterial blood by [facility] Pulse oximetry Branch Procedures Procedure Date / Time Performing Clinician Source Performed CT HEAD WO CONTRAST 2021-12-18 05:33:39 Elena Oleary [facility] BASIC METABOLIC PANEL 2021-12-18 05:25:00 Elena Oleary [facility] (NA, K, CL, CO2, GLUCOSE, Medica l Branch BUN, CREATININE, CA) CBC WITH DIFF 2021-12-18 05:25:00 Elena Oleary [facility] CONSENT/REFUSAL FOR 2021-12-18 04:39:04 Doctor Unassjesse, [facility] DIAGNOSIS AND TREATMENT [place] [facility] [place] CONSENT/REFUSAL FOR 2021-08-31 12:41:11 Doctor Unatatiana, [facility] DIAGNOSIS AND TREATMENT [place] [facility] [place] NOTICE OF PRIVACY 2021-04-15 18:07:40 Doctor Unatatiana, [facility] PRACTICES [place] [facility] [place] CONSENT/REFUSAL FOR 2021-04-15 18:06:47 Doctor Eddie, [facility] DIAGNOSIS AND TREATMENT [place] [facility] [place] EXTERNAL PROVIDER - ADC 2020-10-15 05:01:00 Doctor Unatatiana, [facility] REFERRAL [place] [facility] [place] COMP. METABOLIC PANEL 2020-09-11 08:49:00 Obie Brown [facility] ([id number]) Medical Branch TRANSTHORACIC ECHO (TTE) 2020-09-10 18:08:34 Alyssa Calderon [facility] COMPLETE Medical [place] TROPONIN I 2020-09-10 10:19:00 Alyssa Calderon [facility] COMP. METABOLIC PANEL 2020-09-10 10:19:00 Kevin [facility] ([id number]) Medical Branch TROPONIN I 2020-09-09 23:39:00 Polina Richmond [facility] TROPONIN I 2020-09-09 16:26:00 Polina [place] [facility] CT CHEST PULMONARY 2020-09-09 05:58:12 Elena Oleary [facility] ANGIOGRAM Medical Branch LACTATE DEHYDROGENASE 2020-09-09 05:19:00 Elena Oleary [facility] CBC WITH DIFF 2020-09-09 05:19:00 Elena Oleary [facility] GLYCOSYLATED HEMOGLOBIN 2020-09-09 05:19:00 Obie Brown [facility] (A1C) [facility] PROCALCITONIN 2020-09-09 05:19:00 Elena Oleary [facility] XR CHEST 1 VW 2020-09-09 04:46:12 Elena Oleary [facility] LACTIC ACID WHOLE BLOOD 2020-09-09 04:12:00 Elena Oleary [facility] BLOOD CULTURE SCREEN 2020-09-09 04:11:00 Elena Oleary [facility] FERRITIN SERUM 2020-09-09 04:11:00 Elena Oleary [facility] TROPONIN I 2020-09-09 04:11:00 Elena Oleary [facility] COMP. METABOLIC PANEL 2020-09-09 04:11:00 Elena Oleary [facility] ([id number]) [facility] D-DIMER 2020-09-09 04:11:00 Elena Oleary [facility] N-TERMINAL PRO-BNP 2020-09-09 04:11:00 Elena Oleary [facility] COVID-19 (ID NOW RAPID 2020-09-09 04:11:00 Elena Oleary [facility] TESTING) [facility] LAB ONLY COVID 2020-09-09 04:11:00 Elena Oleary [facility] INTERPRETATION [facility] HB ECG ROUTINE & RHYTHM 2020-09-09 03:52:47 Elena Oleary [facility] [place] CONSENT/REFUSAL FOR 2020-09-09 03:18:24 Doctor UnassBárbara molina [facility] DIAGNOSIS AND TREATMENT [place] [facility] CONSENT/REFUSAL FOR 2020-07-08 15:36:15 Doctor UnassignedBárbara [facility] DIAGNOSIS AND TREATMENT [place] [facility] Encounters Start End Encounter Admission Attending Care Care Encounter Source Date/Time Date/Time Type Type Clinicians Facility Department ID 2020-12-09 Emergency [facility] [id number] Univers 22:10:23 itludin [facility] 2021-12-17 2021-12-18 Emergency [facility] [id number] Univers 22:48:00 00:38:00 MOPADMAJA buck [facility] 2021-12-17 2021-12-18 Emergency [facility] [id number] Univers 22:48:00 00:38:00 Crystalsheron Schreiber MALIHA [id number] [facility] [id number] [facility] [id number] [address] 2021-08-31 2021-08-31 Emergency Jez [facility] E[facility] [id number] Univers 07:49:00 08:24:00 CELIA buck [facility] 2021-08-31 2021-08-31 [facility] [id number] Univers 07:49:00 08:24:00 Celia [address]ETT [id number] [facility] [id number] [facility] [id number] [address] 2021-08-23 2021-08-23 [facility] [address] [place] 10:24:00 10:24:00 N 0715 da [facility] Outre h Program 2021-04-15 2021-04-15 Marcos [facility]RT [id number] Univers 12:23:00 13:45:00 EDNA buck [facility] 2021-04-15 2021-04-15 Marcos [facility] [id number] Univers 12:23:00 13:45:00 Edna JETT [id number] i ty of [id number] [place] [id number] [facility] 084 Branch 2021-04-15 2021-04-15 Orders Doctor ANSHUL [id number] Univers 00:00:00 00:00:00 Only Unassigned, RIN [id number] ity of [place] [facility] [id number] [place] as [id number] [facility] 009 Branch 2020-10-18 2020-10-18 Letter ANSHUL Mcallister [id number] Univers 00:00:00 00:00:00 (Out) Meeta RIN [id number] it y of HOSPITAL 4.2.7.2.686 [place] as [id number] [facility] 043 Branch 2020-10-15 2020-10-15 Orders Doctor NASHUL [id number] Univers 00:00:00 00:00:00 Only Unassigned, RIN [id number] ity of [place] [facility] [id number] [place] as [id number] [facility] 009 Branch 2020-09-12 2020-09-12 Transition Jessy Maxwell [id number] Univers 00:00:00 00:00:00 of Care Jasmine Agrawaly [id number] ity of [id number] [place] [id number] [facility] 403 Branch 2020-09-08 2020-09-11 Inpatient X [facility] [id number] Univers 22:42:00 17:37:00 KHALED ity of [facility] 2020-09-08 2020-09-11 Hospital Elena Oleary S [facility] 1.2.840. [id number] Univers 22:42:00 17:37:00 Encounter Polina [place] [id number] ity [id number] [place] [id number] [facility] 080 Branch 2020-07-08 2020-07-08 [facility] [id number] Univers 10:49:00 12:02:00 Michelle Jett [id number] i ty of [place] [id number] [facility] [id number] [address] 2020-07-08 2020-07-08 [facility] [id number] 10:49:00 12:02:00 Michelle Jett [id number] [place] [id number] [place] [id number] [facility] 2020-03-19 2020-03-19 Emergency [facility] [id number] Univers 18:02:00 19:20:00 MARY [facility] 2019-02-01 2019-02-01 Emergency [facility]RT [id number] Univers 00:37:40 01:11:00 CELIA [facility] 2019-01-18 2019-01-18 Emergency [facility] ERT [id number] Univers 12:47:22 14:12:00 FRANCISCO [facility] 2016-01-23 2016-01-23 Outpatient R [facility] SOS [id number] Univers 00:00:00 00:00:00 JORDAN [facility] Results Test Description Test Time Test Comments Results Result Comments Source COMP. METABOLIC PANEL ([id number]) 2020-09-11 11:09:00 Test Item Value Reference Range Interpretation Comme nts NA (test code = 5964428809) 138 mmol/L 135-145 K (test code = 2141645634) 4.3 mmol/L 3.5-5.0 CL (test code = 6436802039) 102 mmol/L 98-108 CO2 TOTAL (test code = 4855144465) 27 mmol/L 23-31 AGAP (test code = 8533881247) 2-16 BUN (test code = 6596686276) 21 mg/dL 7-23 GLUCOSE (test code = 2223813042) 118 mg/dL 70-110 H CREATININE (test code = 0.83 mg/dL 0.60-1.25 1870061547) TOTAL BILI (test code = 0.6 mg/dL 0.1-1.4 2947785933) CALCIUM (test code = 4602491815) 9.0 mg/dL 8.6-10.6 T PROTEIN (test code = 4775061654) 6.6 g/dL 6.3-8.2 ALBUMIN (test code = 8556525663) 3.4 g/dL 3.5-5.0 L ALK PHOS (test code = 6649769319) 38 U/L 34-122 ALTv (test code = 1742-6) 67 U/L 5-50 H AST(SGOT) (test code = 6872792537) 52 U/L 13-40 H eGFR (test code = 0552186805) mL/min/1.73m2 ARELI (test code = ARELI) Association [...] tests). Lab Interpretation (test code = Abnormal 26632-2) [facility] ONLY COVID [id number] 22:06:43COVID DMT InterpretationInterpretation/Recommendations:Molecular NAAT Tests for Active [...] COVID-19 testing the patient has had at [facility], including molecular NAAT testing (more commonly known as PCR testing and Rapid ID Now testing) and antibody testing. It does not take into account any testing that a patient has had outside of the [facility] medical record. [facility] LABORATORY SERVICESCOVID HtmvhhrBTTN-DeW-6 Rapid ID NOW (no units) ? ? Date ? Value ? 09/08/2020 ? Positive (A) ? [facility]ORATORY SERVICESUnCarl [facility]. [facility]arn[facility] CenterCB WITH [id number] 21:18:20 Test Item Value Reference Range Interpretation Comments WBC (test code = See_Comment L [Automated 0690-2) message] The system which generated this result [...] RDW-SD (test code = 40.1 fL 38.5-51.6 70448-0) RDW-CV (test code = 12.3 % 12.1-15.4 788-0) PLT (test code = See_Comment [Automated 777-3) message] The system which generated this result transmit les reference range : 150 - 328 10*3/ ?L. The reference range was not u sed to interpret th is result as normal/abnormal . MPV (test code = 11.2 fL 9.8-13.0 76934-2) NRBC/100 WBC (test See_Comment [Automat ed code = 8821823298) message] The system which generated this result transmit les reference range : 0.0 - 10.0 /100 WBCs. The reference range was not used to interpret this result as normal/abnormal . NRBC x10^3 (test code <0.01 See_Comment [Auto mated = 5331685833) message] The system which generated this result transmit les reference range : 10*3/?L. The reference range was not used to interpret this result as normal/abnormal . SEG % (test code = 50 % 33-76 75643-6) BAND % (test code = 4 % 0-1 H 28922-1) LYMPH % (test code = 33 % 14-54 06884-4) ATYP LYMPH % (test 4 % See_Comment H Reviewed by Lopez code = 0363264682) Lucille Dimas, Director of HEMATOPATHOLOGY . [Automated message] The system which generated this result transmit les reference range : <=0. The refere nce range was not u sed to interpret th is result as normal/abnormal . PLSMACYTD LYMPH % 1 % See_Comment H [Automate d (test code = 08624-6) messag e] The system which generated this result transmit les reference range : <=0. The refere nce range was not u sed to interpret th is result as normal/abnormal . MONO % (test code = 8 % 0-4 H 01784-1) ARELI (test code = ARELI) Reviewed by Lopez Dimas M.D., Director of HEMATOPATHOLOGY . Lab Interpretation Abnormal (test code = 92363-9) [facility]YCOSYL[facility] HEMOGLOBIN (A1C)2020-09-10 14:48:30 Test Item Value Reference Range Interpretation Comments HGB A1C (test code = 5.8 % 4.0-5.7 H 4548-4) ARELI (test code = ARELI) Reference RangesNormal: <5.7%Prediabetes: 5.7 - 6.4%Diabetes: > 6.5% Lab Interpretation (test Abnormal code = 47530-5) [facility]iscoTROPONIN [id number] 11:31:01 Test Item Value Reference Interpretation Comments Range TROPONIN I (test 0.004 ng/mL See_Comment [Automated code = 7230286547) message] The system which generated this result [...] biotin. Lab Interpretation Normal (test code = 38565-8) [facility]. METABOLIC PANEL ([id number])2020-09-10 11:28:40 Test Item Value Reference Range Interpretation Comments NA (test code = 137 mmol/L 135-145 7201651405) K (test code = 4.2 mmol/L 3.5-5.0 6346615683) CL (test code = 100 mmol/L 98-108 2375758763) CO2 TOTAL (test code = 31 mmol/L 23-31 1889114490) AGAP (test code = 2-16 8261717421) BUN (test code = 19 mg/dL 7-23 9155629870) GLUCOSE (test code = 147 mg/dL 70-110 H 1700817008) CREATININE (test code = 0.92 mg/dL 0.60-1.25 3880426607) TOTAL BILI (test code = 0.7 mg/dL 0.1-1.0 0199084550) CALCIUM (test code = 9.2 mg/dL 8.6-10.6 4708630620) T PROTEIN (test code = 7.2 g/dL 6.3-8.2 4859637990) ALBUMIN (test code = 3.6 g/dL 3.5-5.0 2082033236) ALK PHOS (test code = 35 U/L 34-122 5877310672) ALTv (test code = 68 U/L 5-50 H 1742-6) AST(SGOT) (test code = 68 U/L 13-40 H 2638772760) eGFR (test code = mL/min/1.73m2 8153327497) ARELI (test code = ARELI) Association of [...] tests). Lab Interpretation Abnormal (test code = 22541-4) [facility]iscoMorris [id number] 00:17:22 Test Item Value Reference Interpretation Comments Range TROPONIN I (test 0.002 ng/mL See_Comment [Automated code = 2154981740) message] The system which generated this result [...] biotin. Lab Interpretation Normal (test code = 21060-5) [facility]iscoPROCALCITONIN2021-08-01 17:49:43 Test Item Value Reference Range Interpretation Comments Procalcitonin (test 0.05 ng/mL <0.07 code = 7607122576) ARELI (test code = ARELI) INTERPRETATION OF [...] lung abscess/empyema. For further information please refer to:[email or web address] Lab Interpretation Normal (test code = 57412-9) [facility] FriscoTroponin [id number] 17:38:19 Test Item Value Reference Interpretation Comments Range TROPONIN I (test 0.003 ng/mL See_Comment [Automated code = 7322927121) message] The system which generated this result [...] biotin. 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 [facility], Radiant Results Inft User - 09/09/2020 9:46 AM CDT PROCEDURE: CT CHEST WITH CONTRAST- CHEST PE VA OTOCOLCLINICAL INDICATION: PE suspected, intermediate prob, positive [...] reviewed this study and agree withthe above report.[facility] FriscoFERRITIN [id number] 05:47:56 Test Item Value Reference Range Interpretation Comments FERRITIN (test code = 556.0 ng/mL 18.0-464.0 H 0429018364) ARELI (test code = ARELI) Biotin has been reported to cause a negative bias, interpret results relative to patient's use of biotin. Lab Interpretation (test Abnormal code = 52724-6) [facility] FriscoLACTATE [id number] 05:46:16 Test Item Value Reference Range Interpretation Comments LDH (test code = 2850826201) 1659 U/L 300-600 H Lab Interpretation (test code = Abnormal 78763-2) [facility] FriscoCOMP. METABOLIC PANEL (35011)2020-09-09 05:14:14 Test Item Value Reference Range Interpretation Comments NA (test code = 140 mmol/L 135-145 3579823637) K (test code = 3.8 mmol/L 3.5-5.0 1344981079) CL (test code = 98 mmol/L 98-108 6375402050) CO2 TOTAL (test code = 35 mmol/L 23-31 H 3109584011) AGAP (test code = 2-16 5966840684) BUN (test code = 16 mg/dL 7-23 9371628553) GLUCOSE (test code = 105 mg/dL 70-110 0051242664) CREATININE (test code = 1.08 mg/dL 0.60-1.25 4289619907) TOTAL BILI (test code = 0.8 mg/dL 0.1-1.8 1471161114) CALCIUM (test code = 9.2 mg/dL 8.6-10.6 5958020455) T PROTEIN (test code = 7.8 g/dL 6.3-8.2 9672764534) ALBUMIN (test code = 4.0 g/dL 3.5-5.0 7065019271) ALK PHOS (test code = 46 U/L 34-122 1841542925) ALTv (test code = 79 U/L 5-50 H 1742-6) AST(SGOT) (test code = 109 U/L 13-40 H 7181175776) eGFR (test code = mL/min/1.73m2 5546357731) ARELI (test code = ARELI) Association of [...] tests). Lab Interpretation Abnormal (test code = 78394-9) [facility]iscoTROPONIN [id number] 04:58:10 Test Item Value Reference Interpretation Comments Range TROPONIN I (test 0.007 ng/mL See_Comment [Automated code = 8714551216) message] The system which generated this result [...] biotin. Lab Interpretation Normal (test code = 16172-8) [facility] FriscoN-TERMINAL [id number] 04:54:50 Test Item Value Reference Range Interpretation Comments NT-proBNP (test code 52 pg/mL See_Comment [Autom ated = 2053342064) message] The system which generated this result transmitted reference range : <=125. The reference range was not used to interpret this result as normal/abnormal . ARELI (test code = ARELI) Biotin has been reported to cause a negative bias, interpret results relative to patient's use of biotin. Lab Interpretation Normal (test code = 98921-4) [facility] FriscoD-[id number] 04:43:30 Test Item Value Reference Interpretation Comments Range D-DIMER (test code = See_Comment H [Autom ated 3417305374) message] The system which generated this result [...] diagnosis. Lab Interpretation Abnormal (test code = 00958-9) [facility]iscoCOVID-19 (ID NOW RAPID TESTING)2020-09-09 04:41:49 Test Item Value Reference Range Interpretation Comments SARS-CoV-2 Rapid ID NOW Positive Not Detected A (test code = 39465-0) ARELI (test code = ARELI) ID NOW COVID-19 Assay is an isothermal nucleic acid amplification test intended for the qualitative detection of nucleic acid from SARS-CoV-2 viral RNA in nasopharyngeal (INTERPRETATIVE DANCER) specimens. It is used under Emergency Use [...] indicated. Lab Interpretation Abnormal (test code = 78302-2) [facility] FriscoLactic Acid Whole [id number] 04:23:08 Test Item Value Reference Range Interpretation Comments LACTIC ACID (test code = 1.12 mmol/L 0.50-2.20 3162730311) Lab Interpretation (test code = Normal 76705-8) [facility]
--- NOTE | 2022-05-01 08:41 | ER ---
Nurse's Notes [facility] Name: Lawrence Orellana Age: 42 yrs Sex: Male : 1980 Arrival Date: 04/30/2022 Time: 22:37 Bed Waiting Private MD: Diagnosis: ED Course: 04/30 22:37 Patient arrived in ED. es 22:38 Serge Gomez PA is PHCP. cp 22:38 Maynor Carmona MD is Attending Physician. cp Administered Medications: No medications were administered Outcome: 23:17 Patient left the ED. kl 23:36 Patient left the ED. kl Signatures: Lenora Welch RN RN kl Salyer, Edna es Page, Corey, PA PA cp
== END 2022-04-30 23:36 ==
LOC: ER 21:37
DX: Z02.9 Encounter for administrative examinations, unspecified (principal)

== ENCOUNTER 2023-06-12 18:08 | Emergency (ER) | payer BC, SELFPAY ==
[2023-06-12] MEDS ORDERED: FAMOTIDINE 20 MG TAB ONE (19:16)
[2023-06-12] MEDS ORDERED: METHYLPREDNISOLONE 125 MG INJ ONE (19:16)
[2023-06-13 14:53] VITALS: BP 115/98; TEMP 98.6; O2SAT 98
== END 2023-06-12 19:38 | disposition home or self-care (01) ==
LOC: ER 18:08
DX: R21 Rash and other nonspecific skin eruption (principal); F17.220 Nicotine dependence, chewing tobacco, uncomplicated; Z88.0 Allergy status to penicillin
CPT/HCPCS: 96372; 99284; J2919

== ENCOUNTER 2023-10-26 16:18 | Emergency (ER) | payer BC, SELFPAY ==
[2023-10-26] MEDS ORDERED: KETOROLAC 30 MG/ML INJ ONE (16:35)
[2023-10-26] MEDS ORDERED: ACETAMINOPHEN 500 MG TAB ONE (16:35)
--- NOTE | 2023-10-26 18:11 | ER ---
Nurse's Notes [facility] Name: Lawrence Orellana Age: 43 yrs Sex: Male : 1980 Arrival Date: 10/26/2023 Time: 16:18 Bed 9 Private MD: Diagnosis: Sprain of unspecified ligament of left ankle, initial encounter Presentation: 10/25 16:33 Chief complaint: Patient states: Left ankle pain and swelling onset Thursday after cm10 stepping in a hole. Pt reports that the pain radiates up his leg. Pt noted to have swelling to his left ankle. Coronavirus screen: Client denies travel out of the [place] in the last 14 days. At this time, the client does not indicate any symptoms associated with coronavirus-19. Ebola Screen: Patient denies travel to an Ebola-affected area in the 21 days before illness onset. No symptoms or risks identified at this time. Initial Sepsis Screen: Does the patient meet any 2 criteria? No. Patient's initial sepsis screen is negative. Does the patient have a suspected source of infection? No. Patient's initial sepsis screen is negative. Risk Assessment: Do you want to hurt yourself or someone else? Patient reports no desire to harm self or others. Onset of symptoms was October 24, 2023. 16:33 Method Of Arrival: Ambulatory cm10 16:33 Acuity: NEHA 4 cm10 Triage Assessment: 16:35 General: Appears in no apparent distress. comfortable, Behavior is calm, cooperative. cm10 Pain: Complains of pain in left ankle Pain radiates to left leg Pain currently is 9 out of 10 on a pain scale. Quality of pain is described as aching, pressure, sharp, shooting, Pain began 2-3 days ago. Is continuous. Neuro: No deficits noted. Level of Consciousness is awake, alert, obeys commands, Oriented to person, place, time, situation, Appropriate for age. Respiratory: No deficits noted. Airway is patent Respiratory effort is even, unlabored, Respiratory pattern is regular, symmetrical. Musculoskeletal: Swelling present in Left Ankle Reports pain in Left ankle. Historical: - Allergies: 16:34 PENICILLINS; cm10 - Home Meds: 16:34 None [Active]; cm10 - PMHx: 16:34 None; cm10 - PSHx: 16:34 None; cm10 - Immunization history:: Adult Immunizations up to date. - Infectious Disease History:: Denies. - Social history:: Smoking status: Patient reports use of chewing tobacco. Screenin:45 [facility] ED Fall Risk Assessment (Adult) History of falling in the last 3 months, mb9 including since admission No falls in past 3 months (0 pts) Confusion or Disorientation No (0 pts) Intoxicated or Sedated No (0 pts) Impaired Gait No (0 pts) Mobility Assist Device Used No (0 pt) Altered Elimination No (0 pt) Score/Fall Risk Level 0 - 2 = Low Risk Oriented to surroundings, Maintained a safe environment, Educated pt \T\ family on fall prevention, incl call for assistance when getting out of bed. Abuse screen: Denies threats or abuse. Nutritional screening: No deficits noted. Tuberculosis screening: No symptoms or risk factors identified. Assessment: 16:44 General: Appears in no apparent distress. Behavior is calm, cooperative, appropriate mb9 for age. Pain: Complains of pain in left foot Pain radiates to left leg Pain currently is 8 out of 10 on a pain scale. Quality of pain is described as throbbing, Pain began 1 day ago. Neuro: [place] Agitation-Sedation Scale (RASS): 0 - Alert and Calm Level of Consciousness is awake, alert, obeys commands, Oriented to person, place, time, situation, Appropriate for age. Cardiovascular: Patient's skin is warm and dry. Cardiovascular: Pulses are all present. Respiratory: Airway is patent Respiratory effort is even, unlabored, Respiratory pattern is regular, symmetrical. GI: No signs and/or symptoms were reported involving the gastrointestinal system. : No signs and/or symptoms were reported regarding the genitourinary system. EENT: No signs and/or symptoms were reported regarding the EENT system. Derm: Skin is pink, warm \T\ dry. Musculoskeletal: Range of motion: intact in all extremities. 17:57 Reassessment: No changes from previously documented assessment. Patient and/or family mb9 updated on plan of care and expected duration. Pain level reassessed. Patient is alert, oriented x 3, equal unlabored respirations, skin warm/dry/pink. Vital Signs: 16:33 BP 146 / 86; Pulse 79; Resp 14; Temp 97.3; Pulse Ox 100% ; Weight 108.86 kg; Height 5 cm10 ft. 10 in. ; Pain 9/10; 16:33 Body Mass Index 34.44 (108.86 kg, 177.8 cm) cm10 16:33 Pain Scale: Adult cm10 ED Course: 16:21 Patient arrived in ED. ra3 16:30 Amber Shah PA-C is PHCP. sb4 16:30 Maynor Carmona MD is Attending Physician. sb4 16:34 Triage completed. cm10 16:36 Arm band placed on Patient placed in waiting room. cm10 16:39 Andie Ramon, RN is Primary Nurse. mb9 16:45 Bed in low position. Call light in reach. Side rails up X 1. Provided Education on: mb9 press call light if needing anything. Client placed on continuous cardiac and pulse oximetry monitoring. NIBP monitoring applied. 17:54 Ankle Left 3 View XRAY In Process Unspecified. EDMS 18:11 Heraclio Mehta MD is Referral Physician. sb4 18:31 No provider procedures requiring assistance completed. Patient did not have IV access mb9 during this emergency room visit. 18:31 Ortho shoe applied to left foot. zm Administered Medications: 16:43 Drug: Ketorolac IM 30 mg IM once Route: IM; Site: left deltoid; mb9 17:57 Follow up: Response: No adverse reaction mb9 16:43 Drug: Acetaminophen PO 1000 mg PO once Route: PO; mb9 17:57 Follow up: Response: No adverse reaction mb9 Medication: 16:46 VIS not applicable for this client. mb9 Outcome: 18:11 Discharge ordered by MD. sb4 18:32 Discharged to home ambulatory, mb9 18:32 Condition: stable 18:32 Discharge instructions given to patient, Instructed on discharge instructions, follow up and referral plans. Demonstrated understanding of instructions, follow-up care, 18:32 Patient left the ED. mb9 Signatures: Dispatcher [employer] EDUT Karin Chilel Sophia, PA-C PA-C sb4 Andie Ramon RN RN mb9 Tati Chilel RN RN cm10 Marlyn Logan ra3
--- NOTE | 2023-10-26 18:11 | EDPHYS ---
Physician Documentation [facility] Name: Lawrence Orellana Age: 43 yrs Sex: Male : 1980 Arrival Date: 10/26/2023 Time: 16:18 Bed 9 Private MD: ED Physician Maynor Carmona HPI: 10/25 16:38 This 43 yrs old Black Male presents to ER via Ambulatory with complaints of Ankle sb4 Injury, Leg Injury. 16:38 The patient presents with an injury, pain, that is acute, swelling, tenderness. The sb4 complaints affect the left ankle. Onset: The symptoms/episode began/occurred 2 day(s) ago. Context: The problem was sustained outdoors, resulted from a mis-step by the patient, stepped in hole, The mechanism of injury involved inversion of the affected ankle. The patient can fully bear weight on the affected extremity. the patient is able to ambulate. Associated signs and symptoms: The patient has no apparent associated signs or symptoms. The patient has not experienced similar symptoms in the past. The patient has not recently seen a physician. Historical: - Allergies: 16:34 PENICILLINS; cm10 - Home Meds: 16:34 None [Active]; cm10 - PMHx: 16:34 None; cm10 - PSHx: 16:34 None; cm10 - Immunization history:: Adult Immunizations up to date. - Infectious Disease History:: Denies. - Social history:: Smoking status: Patient reports use of chewing tobacco. ROS: 16:38 Constitutional: Negative for fever, chills, and weight loss, sb4 16:38 MS/extremity: Positive for injury or acute deformity, pain, swelling, of the left lateral ankle, 16:38 All other systems are negative, Exam: 16:40 Constitutional: This is a well developed, well nourished patient who is awake, alert, sb4 and in no acute distress. Head/Face: Normocephalic, atraumatic. Eyes: Extra-ocular motions intact. Periorbital areas with no swelling, redness, or edema. ENT: Mucous membranes moist. Skin: Warm, dry with normal turgor. Normal color with no rashes, no lesions, and no evidence of cellulitis. 16:40 Musculoskeletal/extremity: ROM: limited active range of motion due to pain, limited passive range of motion due to pain, Circulation is intact in all extremities. Pulses: are normal with no appreciated deficits, Perfusion: the patient is normally perfused throughout, Sensation intact. Joints: the left ankle displays painful range of motion, swelling, Weight bearing: able to fully bear weight, Vital Signs: 16:33 BP 146 / 86; Pulse 79; Resp 14; Temp 97.3; Pulse Ox 100% ; Weight 108.86 kg; Height 5 cm10 ft. 10 in. ; Pain 9/10; 16:33 Body Mass Index 34.44 (108.86 kg, 177.8 cm) cm10 16:33 Pain Scale: Adult cm10 MDM: 16:37 Patient medically screened. sb4 17:46 Independent interpretation of the following test(s) in the Emergency Department X-Ray: sb4 My interpretation is My interpretation of the left ankle x-ray images is no acute fracture or dislocation. 18:10 Data reviewed: vital signs, nurses notes, radiologic studies, and as a result, I will sb4 discharge patient. Counseling: I had a detailed discussion with the patient and/or guardian regarding the historical points, exam findings, and any diagnostic results supporting the discharge/admit diagnosis, radiology results, to return to the emergency department if symptoms worsen or persist or if there are any questions or concerns that arise at home. 10/25 16:38 Order name: Ankle Left 3 View XRAY; Complete Time: 18:13 sb4 10/25 18:13 Order name: Walking boot; Complete Time: 18:31 sb4 Administered Medications: 16:43 Drug: Ketorolac IM 30 mg IM once Route: IM; Site: left deltoid; mb9 17:57 Follow up: Response: No adverse reaction mb9 16:43 Drug: Acetaminophen PO 1000 mg PO once Route: PO; mb9 17:57 Follow up: Response: No adverse reaction mb9 Disposition Summary: 10/26/23 18:11 Discharge Ordered Notes: Location: Home sb4 Problem: new sb4 Symptoms: have improved sb4 Condition: Stable sb4 Diagnosis - Sprain of unspecified ligament of left ankle, initial encounter sb4 Followup: sb4 - With: Heraclio Mehta MD - When: As needed - Reason: Recheck today's complaints, Re-evaluation by your physician Discharge Instructions: - Discharge Summary Sheet sb4 - Ankle Sprain, [id number] sb4 Forms: - Patient Portal Instructions sb4 - Leadership Thank You Letter sb4 Signatures: Dispatcher [employer] Amber Suero PA-C PA-C sb4 Andie Ramon RN RN mb9 Tati Chilel RN RN cm10
--- NOTE | 2023-10-26 18:12 | RAD REPORT ---
EXAMINATION: XR LEFT ANKLE CLINICAL INDICATION: Male, 43 years old. Pain TECHNIQUE: 3 view radiographs of the left ankle were obtained. COMPARISON: 06/06/2013 FINDINGS: No bone or joint abnormality seen. IMPRESSION: No acute or significant abnormalities.
[2023-10-26 19:06] VITALS: BP 146/86; TEMP 97.3; O2SAT 100
== END 2023-10-26 18:32 | disposition home or self-care (01) ==
LOC: ER 16:18
DX: S93.402A Sprain of unspecified ligament of left ankle, initial encounter (principal)
CPT/HCPCS: 96372; 99284

== ENCOUNTER 2024-01-16 02:00 | Emergency (ER) | payer SELFPAY ==
[2024-01-16] MEDS ORDERED: KETOROLAC 30 MG/ML INJ ONE (02:36)
--- NOTE | 2024-01-16 04:29 | ER ---
Nurse's Notes [facility] Name: Lawrence Orellana Age: 43 yrs Sex: Male : 1980 Arrival Date: 01/16/2024 Time: 02:00 Bed 14 Private MD: Diagnosis: Sub acute Left ankle sprain, Left ankle pain ;Sprain of other ligament of left ankle, initial encounter Presentation: 01/15 02:08 Chief complaint: Patient states: I twisted my left foot, pain and swelling on the left ha1 foot, unable to stand with left foot. 02:08 Coronavirus screen: Vaccine status: Patient reports being unvaccinated. Ebola Screen: ha1 No symptoms or risks identified at this time. Initial Sepsis Screen: Does the patient meet any 2 criteria? No. Patient's initial sepsis screen is negative. Does the patient have a suspected source of infection? No. Patient's initial sepsis screen is negative. Risk Assessment: Do you want to hurt yourself or someone else? Patient reports no desire to harm self or others. Onset of symptoms was January 16, 2024. 02:08 Method Of Arrival: Ambulatory ha1 02:08 Acuity: NEHA 4 ha1 Historical: - Allergies: 02:41 PENICILLINS; ha1 - PMHx: 02:41 None; ha1 - Immunization history:: Adult Immunizations up to date. - Infectious Disease History:: Denies. - Social history:: Smoking status: Patient reports use of chewing tobacco. - Family history:: not pertinent. Screenin:42 [facility] ED Fall Risk Assessment (Adult) History of falling in the last 3 months, ha1 including since admission No falls in past 3 months (0 pts) Confusion or Disorientation No (0 pts) Intoxicated or Sedated No (0 pts) Impaired Gait No (0 pts) Mobility Assist Device Used No (0 pt) Altered Elimination No (0 pt) Score/Fall Risk Level 3 or more points = High Risk Oriented to surroundings, Maintained a safe environment, Educated pt \\T\\ family on fall prevention, incl call for assistance when getting out of bed, Hourly rounding (assess needs \\T\\ fall precautionary measures) done. Abuse screen: Denies threats or abuse. Denies injuries from another. Nutritional screening: No deficits noted. Tuberculosis screening: No symptoms or risk factors identified. Assessment: 02:20 General: Appears in no apparent distress. uncomfortable, Behavior is calm, cooperative. kj2 Pain: Complains of pain in left foot Pain currently is 8 out of 10 on a pain scale. Neuro: Level of Consciousness is awake, alert, obeys commands, Oriented to person, place, time, situation. Cardiovascular: Patient's skin is warm and dry. Respiratory: Airway is patent Respiratory effort is unlabored. GI: No signs and/or symptoms were reported involving the gastrointestinal system. : No signs and/or symptoms were reported regarding the genitourinary system. 02:43 Reassessment: patient refused ordered pain med and stated he did not want pain med, he kj2 only wants to see what is wrong with his foot. 02:45 Reassessment: patient states " I have a place to be, I am ready to go." education was ha1 provided on need to wait on XRAY. 03:45 Reassessment: Patient appears in no apparent distress at this time. Patient and/or kj2 family updated on plan of care and expected duration. Pain level reassessed. Patient is alert, oriented x 3, equal unlabored respirations, skin warm/dry/pink. 04:34 Reassessment: Patient appears in no apparent distress at this time. Patient and/or kj2 family updated on plan of care and expected duration. Pain level reassessed. Patient is alert, oriented x 3, equal unlabored respirations, skin warm/dry/pink. Vital Signs: 02:08 BP 128 / 93; Pulse 87; Resp 17 S; Temp 97.8(O); Pulse Ox 99% on R/A; Weight 106.14 kg; ha1 Height 5 ft. 9 in. ; 02:45 BP 128 / 89; Pulse 82; Resp 18; Temp 97.9; Pulse Ox 100% on R/A; kj2 03:45 BP 130 / 90; Pulse 20; Resp 18; Temp 98; Pulse Ox 100% on R/A; kj2 04:35 BP 126 / 78; Pulse 80; Resp 18; Pulse Ox 100% ; kj2 02:08 Body Mass Index 34.56 (106.14 kg, 175.26 cm) ha1 [place] Coma Score: 04:18 Eye Response: spontaneous(4). Motor Response: obeys commands(6). Verbal Response: sp4 oriented(5). Total: 15. ED Course: 02:03 Patient arrived in ED. gm2 02:06 Rj Gillespie MD is Attending Physician. sp4 02:08 Patient has correct armband on for positive identification. Allergy band placed. Bed in ha1 low position. Call light in reach. Side rails up X 1. 02:08 Provided Education on: plan of care . ha1 02:25 Arm band placed on Patient placed in an exam room, on a stretcher. kj2 02:41 Triage completed. ha1 02:45 Martha Waldron, REZA is Primary Nurse. kj2 02:45 No provider procedures requiring assistance completed. kj2 03:00 Patient did not have IV access during this emergency room visit. ha1 04:28 Indra Donahue MD is Referral Physician. sp4 Administered Medications: 02:43 Not Given (Patient Refused): [id number] mg IM once kj2 Medication: 02:20 VIS not applicable for this client. kj2 Outcome: 03:07 Condition: stable kj2 04:00 Discharged to home ambulatory, ha1 04:29 Discharge ordered by . sp4 04:34 Discharge instructions given to patient, Instructed on discharge instructions, follow kj2 up and referral plans. Demonstrated understanding of instructions, follow-up care, 04:37 Patient left the ED. ha1 Signatures: Melissa Valdivia RN RN ha1 Rj Gillespie MD MD sp4 Latisha Mata 2 Martha Waldron RN RN kj2
--- NOTE | 2024-01-16 04:29 | EDPHYS ---
Physician Documentation [facility] Name: Lawrence Orellana Age: 43 yrs Sex: Male : 1980 Arrival Date: 01/16/2024 Time: 02:00 Bed 14 Private MD: ED Physician Rj Gillespie HPI: 01/15 02:06 This 43 yrs old Black Male presents to ER via Unassigned with complaints of Ankle pain. sp4 04:18 43-year-old male with history of parietal left ankle injury manage remote left ankle sp4 and foot surgery presents with worsening left ankle and left foot pain. Patient states 1 week ago he twisted his ankle in the yard, pain is now a little worse and patient is here for evaluation. . Historical: - Allergies: 02:41 PENICILLINS; ha1 - PMHx: 02:41 None; ha1 - Immunization history:: Adult Immunizations up to date. - Infectious Disease History:: Denies. - Social history:: Smoking status: Patient reports use of chewing tobacco. - Family history:: not pertinent. ROS: 04:18 Constitutional: Negative for fever, chills, and weight loss, positive for L ankle sp4 pain 04:18 All other systems are negative, Exam: 04:18 Constitutional: This is a well developed, well nourished patient who is awake, alert, sp4 and in no acute distress. Head/Face: Normocephalic, atraumatic. Eyes: Pupils equal round and reactive to light, extra-ocular motions intact. Lids and lashes normal. Conjunctiva and sclera are not injected. Cornea within normal limits. Periorbital areas with no swelling, redness, or edema. ENT: Nares patent. No nasal discharge, no septal abnormalities noted. Tympanic membranes are normal and external auditory canals are clear. Oropharynx with no redness, swelling, or masses, exudates, or evidence of obstruction, uvula midline. Mucous membranes moist. Neck: Trachea midline, no thyromegaly or masses palpated, and no cervical lymphadenopathy. Supple, full range of motion without nuchal rigidity, or vertebral point tenderness. Chest/axilla: Normal chest wall appearance and motion. Nontender with no deformity. No lesions are appreciated. Cardiovascular: Regular rate and rhythm with a normal S1 and S2. No gallops, murmurs, or rubs. Normal PMI, no JVD. No pulse deficits. Respiratory: Lungs have equal breath sounds bilaterally, clear to auscultation and percussion. No rales, rhonchi or wheezes noted. No increased work of breathing, no retractions or nasal flaring. Abdomen/GI: Soft, with normal bowel sounds. No distension or tympany. No guarding or rebound. No evidence of tenderness throughout. Back: No spinal tenderness. No costovertebral tenderness. Skin: Warm, dry with normal turgor. Normal color with no rashes, no lesions, and no evidence of cellulitis. MS/ Extremity: Pulses equal, no cyanosis. Neurovascular intact. Full, normal range of motion. Left dorsal foot and ankle scar from prior Repair . Mild swelling about the left lateral malleolus. Normal peripheral pulses. Neuro: Awake and alert, GCS 15, oriented to person, place, time, and situation. Cranial nerves II-XII grossly intact. Motor strength 5/5 in all extremities. Sensory grossly intact. Psych: Awake, alert, with orientation to person, place and time. Behavior, mood, and affect are within normal limits Vital Signs: 02:08 BP 128 / 93; Pulse 87; Resp 17 S; Temp 97.8(O); Pulse Ox 99% on R/A; Weight 106.14 kg; ha1 Height 5 ft. 9 in. ; 02:45 BP 128 / 89; Pulse 82; Resp 18; Temp 97.9; Pulse Ox 100% on R/A; kj2 03:45 BP 130 / 90; Pulse 20; Resp 18; Temp 98; Pulse Ox 100% on R/A; kj2 04:35 BP 126 / 78; Pulse 80; Resp 18; Pulse Ox 100% ; kj2 02:08 Body Mass Index 34.56 (106.14 kg, 175.26 cm) ha1 [place] Coma Score: 04:18 Eye Response: spontaneous(4). Motor Response: obeys commands(6). Verbal Response: sp4 oriented(5). Total: 15. MDM: 02:12 Medical Screening Exam initiated sp4 04:26 Differential diagnosis: closed fracture, contusion, abrasion, tendonitis, Ankle sprain. sp4 Data reviewed: vital signs, nurses notes, radiologic studies, Patient refused X ray . ED course: Patient was evaluated and we see that the patient has no vascular compromise. Overall ankle appears mildly swollen to the left lateral malleolus. Patient is able to weight-bear. Patient declined x-rays and decided to leave emergency room. Patient was provided with informed discharge.. Administered Medications: 02:43 Not Given (Patient Refused): [id number] mg IM once kj2 Disposition Summary: 01/16/24 04:29 Discharge Ordered Notes: Location: Home sp4 Problem: new sp4 Symptoms: have improved sp4 Condition: Stable sp4 Diagnosis - Sub acute Left ankle sprain, Left ankle pain sp4 - Sprain of other ligament of left ankle, initial encounter sp4 Followup: sp4 - With: Indra Donahue MD - When: 7 - 10 days - Reason: Recheck today's complaints Discharge Instructions: - Discharge Summary Sheet sp4 - Ankle Sprain, [id number] sp4 Forms: - Patient Portal Instructions sp4 Signatures: Dispatcher [employer] EDMelissa Campos RN RN ha1 Rj Gillespie MD MD sp4 Martha Waldron RN kj2 Corrections: (The following items were deleted from the chart) 02:32 02:32 Ankle Left 3 View+RAD.RAD.BRZ ordered. EDMS EDMS 03:03 02:31 Foot Left 3 View+RAD.RAD.BRZ ordered. EDMS EDMS
[2024-01-16 07:37] VITALS: TEMP 97.9; O2SAT 100
[2024-01-16 07:39] VITALS: BP 126/78
== END 2024-01-16 04:37 | disposition home or self-care (01) ==
LOC: ER 02:00
DX: S93.492A Sprain of other ligament of left ankle, initial encounter (principal)
CPT/HCPCS: 99283

== ENCOUNTER 2024-03-08 16:01 | Emergency (ER) | payer SELFPAY ==
--- NOTE | 2024-03-08 17:04 | RAD REPORT ---
EXAMINATION: Ankle Left 3 View CLINICAL INDICATION: Male, 44 years old. PAIN COMPARISON: 10/26/2023 FINDINGS: No acute fracture. No malalignment/dislocation. Tiny dorsal aspect calcaneal spur. Other: n/a IMPRESSION: No acute osseous abnormality.
--- NOTE | 2024-03-08 17:07 | ER ---
Nurse's Notes [facility] Name: Lawrence Orellana Age: 44 yrs Sex: Male : 1980 Arrival Date: 03/08/2024 Time: 16:01 Bed 9 Private MD: Diagnosis: Sprain of ankle Presentation: 03/08 16:09 Chief complaint: Patient states: he was getting out of his truck "too fast" and injured ap3 his left ankle. patient currently rates his pain as a 10/10 on the pain scale and describes the pain as a burning feeling. Coronavirus screen: At this time, the client does not indicate any symptoms associated with coronavirus-19. Ebola Screen: No symptoms or risks identified at this time. Initial Sepsis Screen: Does the patient meet any 2 criteria? No. Patient's initial sepsis screen is negative. Does the patient have a suspected source of infection? No. Patient's initial sepsis screen is negative. Risk Assessment: Do you want to hurt yourself or someone else? Patient reports no desire to harm self or others. Onset of symptoms was March 08, 2024. 16:09 Method Of Arrival: Ambulatory ap3 16:09 Acuity: NEHA 4 ap3 Triage Assessment: 16:11 General: Appears in no apparent distress. Behavior is calm, cooperative, appropriate ap3 for age. Pain: Complains of pain in anterior aspect of left ankle Pain currently is 10 out of 10 on a pain scale. Quality of pain is described as burning. Neuro: Level of Consciousness is awake, alert, obeys commands, Oriented to person, place, time, situation, Appropriate for age. Cardiovascular: Patient's skin is warm and dry. Respiratory: Airway is patent Respiratory effort is even, unlabored, Respiratory pattern is regular, symmetrical. Historical: - Allergies: 16:10 PENICILLINS; ap3 - Home Meds: 16:10 None [Active]; ap3 - PMHx: 16:10 None; ap3 - Immunization history:: Client reports receiving the 2nd dose of the Covid vaccine, Flu vaccine is up to date. - Infectious Disease History:: Denies. - Social history:: Smoking status: Patient reports use of chewing tobacco. Screenin:12 Abuse screen: Denies threats or abuse. Nutritional screening: No deficits noted. ap3 Tuberculosis screening: No symptoms or risk factors identified. 16:12 [facility] ED Fall Risk Assessment (Adult) History of falling in the last 3 months, ap3 including since admission Yes- single mechanical fall (1 pt) Confusion or Disorientation No (0 pts) Intoxicated or Sedated No (0 pts) Impaired Gait No (0 pts) Mobility Assist Device Used No (0 pt) Altered Elimination No (0 pt) Score/Fall Risk Level 0 - 2 = Low Risk Oriented to surroundings, Maintained a safe environment, Educated pt \\T\\ family on fall prevention, incl call for assistance when getting out of bed, Assessed \\T\\ reinforced patient's understanding of fall precautions, Hourly rounding (assess needs \\T\\ fall precautionary measures) done, Used ambulatory aids as needed (educated on \\T\\ assisted with), Used gait belt as appropriate. Assessment: 17:35 General: Appears uncomfortable, well groomed, well developed, well nourished, Behavior me1 is calm, cooperative, appropriate for age, Reports he was getting out of his truck "too fast" and injured his left ankle. patient currently rates his pain as a 10/10 on the pain scale and describes the pain as a burning feeling. Pain: Complains of pain in left lateral ankle and left leg and anterior aspect of left ankle Pain does not radiate. Pain currently is 10 out of 10 on a pain scale. Quality of pain is described as burning, Pain began suddenly, Is continuous. Neuro: Level of Consciousness is awake, alert, obeys commands, Oriented to person, place, time, situation, Appropriate for age. Cardiovascular: Patient's skin is warm and dry. Respiratory: Airway is patent Respiratory effort is even, unlabored, Respiratory pattern is regular, symmetrical. GI: No signs and/or symptoms were reported involving the gastrointestinal system. : No signs and/or symptoms were reported regarding the genitourinary system. EENT: No signs and/or symptoms were reported regarding the EENT system. Derm: Skin is intact, is healthy with good turgor, Skin is pink, warm \\T\\ dry. Musculoskeletal: Reports pain in left medial ankle and left lateral ankle and anterior aspect of left ankle. Injury Description: he was getting out of his truck "too fast" and injured his left ankle. patient currently rates his pain as a 10/10 on the pain scale and describes the pain as a burning feeling. Vital Signs: 16:09 BP 134 / 85; Pulse 71; Resp 17; Temp 97.7; Pulse Ox 100% ; Weight 104.33 kg; Height 5 ap3 ft. 10 in. ; Pain 10/10; 17:38 BP 132 / 79; Pulse 68; Resp 16; Temp 98.1; Pulse Ox 100% ; me1 16:09 Body Mass Index 33.00 (104.33 kg, 177.8 cm) ap3 16:09 Pain Scale: Adult ap3 ED Course: 16:04 Patient arrived in ED. im 16:05 Carla Bateman FNP-C is [facility]. kb 16:05 Lawrence Crocker DO is Attending Physician. kb 16:10 Triage completed. ap3 16:12 Arm band placed on right wrist. ap3 16:32 Ankle Left 3 View XRAY In Process Unspecified. EDMS 17:31 Erika Kendrick, RN is Primary Nurse. me1 17:35 Patient has correct armband on for positive identification. Bed in low position. Call me1 light in reach. Side rails up X 1. Provided Education on: POC. Verbalized understanding.. 17:35 No provider procedures requiring assistance completed. Patient did not have IV access me1 during this emergency room visit. Administered Medications: 17:35 Drug: Hydrocodone-Acetaminophen PO (7.5 mg-325 mg) 1 tabs PO once Route: PO; me1 17:43 Follow up: Response: No adverse reaction me1 Medication: 17:35 VIS not applicable for this client. me1 Outcome: 17:07 Discharge ordered by . kb 17:58 Discharged to home ambulatory, with significant other, me1 17:58 Condition: stable 17:58 Discharge instructions given to patient, significant other, Instructed on discharge instructions, follow up and referral plans. medication usage, Demonstrated understanding of instructions, follow-up care, medications, Prescriptions given X 1, 17:58 Patient left the ED. me1 Signatures: Dispatcher [employer] EDDC Carla Bateman FNP-C FNP-Ckb Prokisch, Amanda RN RN ap3 Tika Miranda Erika Kendrick, RN RN me1 Corrections: (The following items were deleted from the chart) 17:35 16:09 Chief complaint: Patient states: he was getting out of his truck "too fast" and me1 injured his left ankle. patient currently rates his pain as a 10/10 on the pain scale and describes the pain as a burning feeling ap3
--- NOTE | 2024-03-08 17:07 | EDPHYS ---
Physician Documentation [facility] Name: Lawrence Orellana Age: 44 yrs Sex: Male : 1980 Arrival Date: 03/08/2024 Time: 16:01 Bed 9 Private MD: ED Physician Lawrence Crocker HPI: 03/08 17:06 This 44 yrs old Black Male presents to ER via Ambulatory with complaints of Foot Pain - kb left. 17:06 Pt is a 44 year old male who presents for left ankle pain after twisting it while kb getting out of truck earlier today. concerned for fracture. Denies any other pain or injury. Historical: - Allergies: 16:10 PENICILLINS; ap3 - Home Meds: 16:10 None [Active]; ap3 - PMHx: 16:10 None; ap3 - Immunization history:: Client reports receiving the 2nd dose of the Covid vaccine, Flu vaccine is up to date. - Infectious Disease History:: Denies. - Social history:: Smoking status: Patient reports use of chewing tobacco. ROS: 17:05 Constitutional: As per HPI kb Exam: 17:05 Constitutional: This is a well developed, well nourished patient who is awake, alert, kb and in no acute distress. Head/Face: Normocephalic, atraumatic. ENT: Moist Mucous membranes Cardiovascular: Regular rate Respiratory: Respirations even and unlabored. No increased work of breathing. Talking in full sentences Skin: Warm, dry with normal turgor. Normal color. Neuro: Awake and alert, GCS 15, oriented to person, place, time, and situation. 17:05 Musculoskeletal/extremity: Extremities: grossly normal except: noted in the left lateral ankle and left medial ankle: pain, tenderness, ROM: intact in all extremities, Circulation is intact in all extremities. Sensation intact. Weight bearing: able to fully bear weight, Vital Signs: 16:09 BP 134 / 85; Pulse 71; Resp 17; Temp 97.7; Pulse Ox 100% ; Weight 104.33 kg; Height 5 ap3 ft. 10 in. ; Pain 10/10; 17:38 BP 132 / 79; Pulse 68; Resp 16; Temp 98.1; Pulse Ox 100% ; me1 16:09 Body Mass Index 33.00 (104.33 kg, 177.8 cm) ap3 16:09 Pain Scale: Adult ap3 MDM: 16:05 Medical Screening Exam initiated kb 17:06 Differential diagnosis: sprain, fracture. Data reviewed: vital signs, nurses notes. kb Counseling: I had a detailed discussion with the patient and/or guardian regarding the historical points, exam findings, and any diagnostic results supporting the discharge/admit diagnosis, radiology results, the need for outpatient follow up, a family practitioner, to return to the emergency department if symptoms worsen or persist or if there are any questions or concerns that arise at home. 03/08 16:13 Order name: Ankle Left 3 View XRAY; Complete Time: 17:05 kb 03/08 17:07 Order name: Ravi Wrap; Complete Time: 17:35 kb Administered Medications: 17:35 Drug: Hydrocodone-Acetaminophen PO (7.5 mg-325 mg) 1 tabs PO once Route: PO; me1 17:43 Follow up: Response: No adverse reaction me1 Disposition: 17:55 I was immediately available on-site in the Emergency Department for consultation in the fl3 care of the patient. Disposition Summary: 03/08/24 17:07 Discharge Ordered Notes: Location: Home kb Condition: Stable kb Diagnosis - Sprain of ankle kb Followup: kb - With: Emergency Department - When: As needed - Reason: Worsening of condition Followup: kb - With: Private Physician - When: 2 - 3 days - Reason: Recheck today's complaints, Continuance of care, Re-evaluation by your physician Discharge Instructions: - Discharge Summary Sheet kb - Ankle Sprain, [id number] kb Forms: - Medication Reconciliation Form kb - Antibiotic Education kb - Prescription Opioid Use kb - Patient Portal Instructions kb - Leadership Thank You Letter kb Prescriptions: - Diclofenac Sodium 75 mg Oral tablet, delayed release (enteric coated) - take 1 tablet ORAL route 2 times per day As needed; 30 tablet; Refills: 0, kb Product Selection Permitted Signatures: Dispatcher [employer] Carla Cook FNP-C FNP-Ckb Prokisch, Amanda RN RN ap3 Lawrence Crocker DO DO ms3 Erika Kendrick RN RN me1
[2024-03-08] MEDS ORDERED: HYDROCODONE/APAP 7.5/325 MG TAB ONE (17:32)
[2024-03-08 21:45] VITALS: O2SAT 100
[2024-03-08 21:47] VITALS: BP 132/79; TEMP 98.1
== END 2024-03-08 17:58 | disposition home or self-care (01) ==
LOC: ER 16:01
DX: S93.402A Sprain of unspecified ligament of left ankle, initial encounter (principal)
CPT/HCPCS: 99283

== ENCOUNTER 2024-06-30 19:35 | Emergency (ER) | payer SELFPAY ==
--- OUTSIDE RECORDS SUMMARY | 2024-06-30 19:39 | XMS REPORT | Continuity of Care Document ---
Author Name Unknown Address [address] [facility] [address] [place] [address] Organization [facility] [place] Address [address] [facility] [address] [place] [address] Care Team Providers Care Fence Machine Operator Name Role Phone Zen LOUISE, Sunshine Primary Care Physician BARAK SINGER Attending Clinician Unavail able Barak Singer MD Attending Clinician [phone] KAMRON CHEN Attending Clinician Unavailable Kamron Chen MD Attending Clinician [phone] JOSE VANG Attending Clinician Unavailable Jose Vang DO Attending Clinician [phone] ELENA OLEARY Attending Clinician Unavailable Elena Oleary MD Attending Clinician [phone] CELIA ARREAGA Attending Clinician Unavailab Celia Cyr DO Attending Clinician [phone] RODRIGO Attending Clinician Unavailable Doctor Unassigned, Eloy Attending Clinician U Meeta Bradshaw Attending Clinician [phone] Jasmine Maxwell LVN Attending Clinician [phone] FILIBERTO RICHMOND Attending Clinician Unavailable Filiberto Richmond MD Attending Clinician [phone] Michelle Cavazos Attending Clinician MARY ZUNIGA Attending Clinician Unavailable FRANCISCO GHOSH Attending Clinician Unavailable JORDAN OG Attending Clinician UnavailKAMRON Portillo Admitting Clinician Unavailable ELENA OLEARY Admitting Clinician Unavailable RODRIGO Admitting Clinician Unavailable FILIBERTO RICHMOND Admitting Clinician Unavailable Filiberto Richmond MD Admitting Clinician CELIA ARREAGA Admitting Clinician UnavailFRANCISCO Del Angel Admitting Clinician Unavailable Payers Payer Name Policy Type Policy Number Effective Date Expirati on Date Source [employer] [place] - OUT OF STATE [id number] 2019 00:00:00 [employer] COMM [id number] 2023 00:00:00 COVID19 HRSA UNINSURED [id number] 2020 00:00:00 2020 00:00:00 [facility] [id number] 2015 00:00:00 2017 00:00:00 Problems Condition Name Condition Details Condition Category Status Onset Date Resolution Date Last Treatment Date Treating Clinician Comments Source Lumbar radiculopa thy Lumbar radiculopa thy Disease Recurre hie 06-27 00:00: 00 Lisa Fraga Paresthesi a Paresthesi a Disease Recurre hie 06-27 00:00: 00 Lisa Fraga History of ankle fusion History of ankle fusion Disease Active 06-27 00:00: 00 Lisa Fraga Obesity (BMI 30-39.9) Obesity (BMI 30-39.9) Disease Active 2015-02 00:00: 00 [facility] Abnormal EKG Abnormal EKG Disease Resolve d 09-10 00:00: 00 2023-08-11 00:00:00 2023-08-11 08:45:50 Lisa Fraga COVID-19 virus detected COVID-19 virus detected Disease Resolve d 09-10 00:00: 00 2023-08-11 00:00:00 2023-08-11 08:45:50 [facility] [place] [facility] Other chest pain Other chest pain Disease Resolve d 8 00:00: 00 2023-08-11 00:00:00 2023-08-11 08:45:50 Lisa Vargas Epic Pneumonia due to COVID-19 virus Pneumonia due to COVID-19 virus Disease Resolve d 8 00:00: 00 2023-08-11 00:00:00 2023-08-11 08:45:50 Lisa Vargas Epic Respirator y failure (CMS/HCC) Respirator y failure (CMS/HCC) Disease Resolve d 8 00:00: 00 2023-08-11 00:00:00 2023-08-11 08:45:50 Lisa Vargas Epic Allergies, Adverse Reactions, Alerts Allergy Name Allergy Type Status Severity Reaction(s) Onset Date Inactive Date Treating Clinician Comments Source Penicill ins Propensi ty to adverse reaction to drug Active 10-15 00:00: 00 Gerard Fontenot PENICILL INS Drug Class Active Hives 03-09 00:00: 00 [facility] Penicill ins Propensi ty to adverse reaction s Active Hives 03-09 00:00: 00 [facility] Penicill ins Propensi ty to adverse reaction s Active Hives 03-09 00:00: 00 [facility] Penicill ins Propensi ty to adverse reaction s Active Hives 03-09 00:00: 00 [facility] PENICILL INS Drug Class Active High Hives 03-09 00:00: 00 [facility] Penicill ins Drug Intolera nce Active Hives, Rash, Shortness of breath 03-09 00:00: 00 Lisa Fraga NO KNOWN ALLERGIE S SYSTEMIC Active [facility] Social History Social Habit Start Date Stop Date Quantity Comments Source Gender identity 2023-07-22 08:48:15 Identifies as male gender (finding) [facility] Sexual orientation [facility] History of tobacco use Chews Tobacco [facility] Tobacco use and exposure 2023-08-11 00:00:00 2023-08-11 00:00:00 User of smokeless tobacco [facility] Alcoholic beverage intake 2023-08-11 00:00:00 2023-08-11 00:00:00 Current drinker of alcohol (finding) [facility] History of Social function 2023-08-11 00:00:00 2023-08-11 00:00:00 [facility] Alcohol Comment 2023-06-28 00:00:00 2023-06-28 00:00:00 liquor 1-2 times per week [facility] Exposure to SARS-CoV-2 (event) 2022-06-15 00:00:00 2022-06-25 07:57:00 Not sure [facility] Sex Assigned At 1980 00:00:00 1980 00:00:00 [facility] Smoking Status Start Date Stop Date Source Occasional tobacco smoker 2023-08-11 00:00:00 [facility] Tobacco smoking status 2023-05-07 20:54:37 [facility] Tobacco smoking consumption unknown [facility] Medications Ordered Medication Name Filled Medication Name Start Date Stop Date Current Medication? Ordering Clinician Indication Dosage Frequency Signature (SIG) Comments Components Source ibuprofen 800 MG tablet ibuprofen 800 MG tablet 08-10 08:46: 14 08-10 00:00 :00 No 800mg [id number] 3D Take 800 mg by mouth in the morning and 800 mg at noon and 800 mg in the evening. [facility] OXcarbazepi ne (Trileptal) 150 MG tablet OXcarbazepi ne (Trileptal) 150 MG tablet 08-10 00:00: 00 08-10 23:59 :00 No [id number] 150mg Take 1 tablet by mouth at bedtime. [facility] dexamethaso ne 6 mg tablet 07-19 00:00: 00 Yes mg Gerard F Po acetaminoph en 300 mg-codeine 30 mg tablet 07-19 00:00: 00 Yes mg Gerard F Po ketorolac 10 mg tablet 07-19 00:00: 00 Yes mg Gerard F Po naproxen (NAPROSYN) tablet 500 mg 2023-0 5-17 15:45: 00 06-25 15:00 :00 No 500mg 500 mg, Oral, ONCE, 1 dose, On Thu06/25/22 at 1045, [facility] HYDROcodone -acetaminop hen (NORCO) 10-325 mg tablet 1 tablet 06-25 15:45: 00 06-25 15:00 :00 No 1{tbl} 1 tablet, Oral, ONCE, 1 dose, On Thu06/25/22 at 1045, [facility] naproxen 500 mg tablet 06-25 00:00: 00 07-06 04:59 :00 No [id number] 500mg Take 1 tablet by mouth in the morning and 1 tablet in the evening. Take with meals. Do all this for 10 days. [facility] HYDROcodone -acetaminop hen (NORCO) 10-325 mg tablet 06-25 00:00: 00 07-03 04:59 :00 No [id number] 1{tbl} Take 1 tablet by mouth every 6 (six) hours as needed for Pain (scale 4-6) for up to 7 days. Indication s: acute pain [facility] meclizine (TRAVEL-EAS E (MECLIZINE) ) tablet 25 mg 2021-02 05:15: 00 12-18 05:21 :00 No 25mg 25 mg, Oral, ONCE, 1 dose, On Thu12/17/21 at 2315, [facility] meclizine 25 mg tablet 2021-02 00:00: 00 Yes [id number] 25mg Take 1 tablet by mouth every 6 (six) hours. [facility] fluorescein ophthalmic strip 1 Strip 08-31 14:00: 00 08-31 12:54 :00 No 1{strip } 1 Strip, Left Eye, ONCE, 1 dose, On 08/31/21 at 0900, Routine [facility] tetracaine (PONTOCAINE ) 0.5 % ophthalmic drops 1 Drop 08-31 14:00: 00 08-31 12:55 :00 No 1[drp] 1 Drop, Left Eye, ONCE, 1 dose, On 08/31/21 at 0900, Routine [facility] erythromyci n 5 mg/gram (0.5 %) ophthalmic ointment 08-31 00:00: 00 09-08 04:59 :00 No [id number] .5[in_u s] Place 0.5 Inches in left eye at bedtime for 7 days. Continue until you follow up with eye doctor. [facility] diclofenac (Cataflam) 50 MG tablet diclofenac (Cataflam) 50 MG tablet 4-14 00:00: 00 08-10 00:00 :00 No 50mg Q.5D Take 50 mg by mouth in the morning and 50 mg in the evening. Lisa Fraga ketorolac (TORADOL) injection 30 mg 04-15 20:15: 00 04-15 19:26 :00 No 30mg 30 mg, Intramuscu lar, ONCE, 1 dose, On 04/15/21 at 1415, ESHA [facility] naproxen sodium (ANAPROX DS) 550 mg tablet 04-15 00:00: 00 Yes [id number] 550mg Take 1 tablet by mouth 2 (two) times daily with meals. [facility] methylPREDN ISolone (MEDROL, SHIRA,) 4 mg tablets 04-15 00:00: 00 Yes [id number] Take by mouth SEE-INSTRU CTIONS. follow package directions [facility] methocarbam oL 500 mg tablet 04-15 00:00: 00 04-21 05:59 :00 No [id number] 500mg Take 1 tablet by mouth 3 (three) times daily for 5 days. [facility] aspirin 81 mg chewable tablet 09-12 00:00: 00 Yes [id number] 81mg Take 1 tablet by mouth daily. [facility] cholecalcif misty, vitamin D3, 25 mcg (1,000 unit) tablet 09-12 00:00: 00 Yes [id number] 2000U Take 2 tablets by mouth daily. [facility] albuterol 90 mcg/actuati on inhaler 09-11 00:00: 00 Yes [id number] 2{puff} Inhale 2 Puffs every 4 (four) hours as needed for Wheezing or Shortness of Breath. [facility] ascorbic acid, vitamin C, 1,000 mg tablet 09-11 00:00: 00 Yes [id number] 1000mg Take 1 tablet by mouth daily. [facility] dexAMETHaso ne 6 mg tablet 09-11 00:00: 00 09-17 04:59 :00 No [id number] 6mg Take 1 tablet by mouth daily with breakfast for 5 days. [facility] aspirin chewable tablet 81 mg 09-10 14:30: 00 Yes 81mg 81 mg, Oral, DAILY, First dose on Thu09/10/20 at 0930, Until Discontinu ed, Routine [facility] albuterol-i pratropium (COMBIVENT RESPIMAT) 20-100 mcg/actuati on inhaler 1 Puff 09-10 14:15: 00 Yes 1{puff} 1 Puff, Inhalation , Q6H, First dose on Thu09/10/20 at 0915, Until Discontinu ed, Routine
Is this order for a patient with suspected or confirmed COVID-19 infection? Yes [facility] zinc sulfate (ORAZINC) capsule 220 mg 09-10 14:00: 00 Yes 220mg 220 mg, Oral, DAILY, First dose on Thu09/10/20 at 0900, Until Discontinu ed, Routine [facility] cholecalcif misty (vitamin D3) tablet 1,000 Units 09-10 14:00: 00 Yes 1000U 1,000 Units, Oral, DAILY, First dose on Thu09/10/20 at 0900, Until Discontinu ed, Routine [facility] dexamethaso ne (DECADRON PHOSPHATE) 6 mg in NaCl 0.9% (NS) 50 mL piggyback 09-10 14:00: 00 09-20 13:59 :00 No 6mg 6 mg, IV Piggyback, DAILY, 10 doses, First dose on Thu09/10/20 at 0900, Last dose on Thu09/19/20 at 0900, Administer over 20 Minutes, 50 mL [facility] famotidine (PEPCID AC) tablet 20 mg 09-10 13:45: 00 Yes 20mg 20 mg, Oral, BID, First dose on Thu09/10/20 at 0845, Until Discontinu ed, [facility] ascorbic acid (vitamin C) (VITAMIN C) tablet 500 mg 09-10 13:45: 00 Yes 500mg 500 mg, Oral, BID, First dose on Thu09/10/20 at 0845, Until Discontinu ed, Routine [facility] benzonatate (TESSALON PERLES) capsule 100 mg 09-10 13:45: 00 Yes 100mg 100 mg, Oral, TID, First dose on Thu09/10/20 at 0845, Until Discontinu ed, Routine [facility] albuterol (VENTOLIN) inhaler 2 Puff 09-10 13:37: 12 Yes 2{puff} 2 Puff, Inhalation , Q4HPRN, Starting Thu09/10/20 at 0837, Until Discontinu ed, Routine, Wheezing, Shortness of Breath [facility] codeine-gua ifenesin (ROBITUSSIN AC) 10-100 mg/5 mL solution 5 mL 09-10 06:07: 17 Yes 5mL 5 mL, Oral, Q4HPRN, Starting Thu09/10/20 at 0107, Until Discontinu ed, Routine, Cough [facility] enoxaparin (LOVENOX) injection 40 mg 09-09 22:00: 00 Yes 40mg 40 mg, Subcutaneo us, DAILY, First dose on Thu09/09/20 at 1700, Until Discontinu ed, Routine [facility] iopamidol (ISOVUE 370-500 mL) injection 100 mL 09-09 07:00: 00 09-09 05:52 :00 No [id number] 100mL 100 mL, Intravenou s, ONCE, 1 dose, [place] 09/09/20 at 0200, Routine [facility] dexamethaso ne (DECADRON PHOSPHATE) injection 10 mg 09-09 06:45: 00 09-09 06:26 :00 No 10mg 10 mg, IV Push, ONCE, 1 dose, [place] 09/09/20 at 0145, STAT [facility] levoFLOXaci n in D5W (LEVAQUIN) 750 mg/150 mL Piggyback 750 mg 09-09 05:45: 00 09-09 07:59 :00 No 750mg 750 mg, IV Piggyback, Administer over 90 Minutes, ONCE, 1 dose, [place] 09/09/20 at 0045, ESHA
Re ason for Anti-Infec tive: Empiric Therapy for Suspected Infection< br>Empiric Therapy Site: Respirator y
Durat ion of therapy: 72 hours [facility] codeine-gua ifenesin (ROBITUSSIN AC) 10-100 mg/5 mL solution 10 mL 09-09 05:09: 00 09-09 05:19 :00 No 10mL 10 mL, Oral, ONCE, 1 dose, [place] 09/09/20 at 0015, ESHA [facility] NaCl 0.9% (NS) injection 5 mL 09-09 04:01: 12 Yes 5mL 5 mL, Slow IV Push, PRN - SEE INSTRUCTIO NS, Starting 09/08/20 at 2301, Until Discontinu ed, 10 mL [facility] methocarbam oL (ROBAXIN) tablet 500 mg 07-08 17:00: 00 Yes 500mg 500 mg, Oral, QID, First dose on [place] 07/08/20 at 1200, Until Discontinu ed, Routine [facility] ibuprofen (IBU) tablet 800 mg 07-08 17:00: 00 07-08 16:05 :00 No 800mg 800 mg, Oral, ONCE, 1 dose, [place] 07/08/20 at 1200, ESHA [facility] No known medications No [facility] Immunizations Ordered Immunization Name Filled Immunization Name Date Status Comments Source Td 2021-08-31 00:00:00 Completed [facility] Td 2021-08-31 00:00:00 Completed [facility] TD, NOS 2021-08-31 00:00:00 Completed [facility] TD, NOS 2021-08-31 00:00:00 Completed [facility] Td (adult), unspecified Td (adult), unspecified 2021-08-31 00:00:00 Completed [facility] Vital Signs Vital Name Observation Time Observation Value Comments Abdoul coffman Systolic blood pressure 2023-08-11 08:47:00 145 mm[Hg] [facility] Her mg [facility] Diastolic blood pressure 2023-08-11 08:47:00 84 mm[Hg] [facility] Heart rate 2023-08-11 08:47:00 82 /min [facility] Body temperature 2023-08-11 08:47:00 36.44 [facility] Respiratory rate 2023-08-11 08:47:00 16 /min [facility] Body height 2023-08-11 08:47:00 177.8 cm [facility] Body weight 2023-08-11 08:47:00 105.688 kg [facility] BMI 2023-08-11 08:47:00 33.43 kg/m2 [facility] Oxygen saturation in Arterial blood by Pulse oximetry 2023-08-11 08:47:00 96 /min [facility] Systolic blood pressure 2023-08-11 08:47:00 145 mm[Hg] [facility] Diastolic blood pressure 2023-08-11 08:47:00 84 mm[Hg] [facility] Heart rate 2023-08-11 08:47:00 82 /min [facility] Body temperature 2023-08-11 08:47:00 36.44 [facility] Respiratory rate 2023-08-11 08:47:00 16 /min [facility] Body height 2023-08-11 08:47:00 177.8 cm [facility] Body weight 2023-08-11 08:47:00 105.688 kg Mirza Vargas Epic BMI 2023-08-11 08:47:00 33.43 kg/m2 Mirza Vargas [facility] Oxygen saturation in Arterial blood by Pulse oximetry 2023-08-11 08:47:00 96 /min [facility] Her mg [facility] Systolic blood pressure 2022-06-25 12:57:00 151 mm[Hg] [facility] Diastolic blood pressure 2022-06-25 12:57:00 94 mm[Hg] [facility] Heart rate 2022-06-25 12:56:00 90 /min [facility] Body temperature 2022-06-25 12:56:00 36.61 Kailey [facility] Respiratory rate 2022-06-25 12:56:00 18 /min [facility] Body height 2022-06-25 12:56:00 172.7 cm [facility] Body weight 2022-06-25 12:56:00 108.863 kg [facility] BMI 2022-06-25 12:56:00 36.49 kg/m2 [facility] Oxygen saturation in Arterial blood by Pulse oximetry 2022-06-25 12:56:00 100 /min [facility] Systolic blood pressure 2021-12-18 06:30:00 142 mm[Hg] [facility] Diastolic blood pressure 2021-12-18 06:30:00 104 mm[Hg] [facility] Heart rate 2021-12-18 06:30:00 80 /min [facility] Oxygen saturation in Arterial blood by Pulse oximetry 2021-12-18 06:30:00 97 /min [facility] Body temperature 2021-12-18 04:46:00 36.89 Kailey [facility] Respiratory rate 2021-12-18 04:46:00 16 /min [facility] Body height 2021-12-18 04:46:00 172.7 cm [facility] Body weight 2021-12-18 04:46:00 106.142 kg [facility] BMI 2021-12-18 04:46:00 35.58 kg/m2 [facility] Systolic blood pressure 2021-08-31 12:46:00 167 mm[Hg] [facility] Diastolic blood pressure 2021-08-31 12:46:00 89 mm[Hg] [facility] Heart rate 2021-08-31 12:46:00 79 /min [facility] Body temperature 2021-08-31 12:46:00 36.17 Kailey [facility] Respiratory rate 2021-08-31 12:46:00 16 /min [facility] Body height 2021-08-31 12:46:00 172.7 cm [facility] Body weight 2021-08-31 12:46:00 104.327 kg [facility] BMI 2021-08-31 12:46:00 34.97 kg/m2 [facility] Oxygen saturation in Arterial blood by Pulse oximetry 2021-08-31 12:46:00 97 /min [facility] Systolic blood pressure 2021-04-15 18:19:00 155 mm[Hg] [facility] Diastolic blood pressure 2021-04-15 18:19:00 92 mm[Hg] [facility] Heart rate 2021-04-15 18:16:00 87 /min [facility] Body temperature 2021-04-15 18:16:00 36.83 Kailey [facility] Respiratory rate 2021-04-15 18:16:00 16 /min [facility] Body height 2021-04-15 18:16:00 172.7 cm [facility] Body weight 2021-04-15 18:16:00 104.327 kg [facility] BMI 2021-04-15 18:16:00 34.97 kg/m2 [facility] O[facility] saturation in Arterial blood by Pulse oximetry 2021-04-15 18:16:00 97 /min [facility] Respiratory rate 2020-09-11 18:43:00 22 /min [facility] Oxygen saturation in Arterial blood by Pulse oximetry 2020-09-11 18:43:00 95 /min [facility] Systolic blood pressure 2020-09-11 17:00:00 91 mm[Hg] [facility] Diastolic blood pressure 2020-09-11 17:00:00 47 mm[Hg] [facility] Heart rate 2020-09-11 17:00:00 74 /min [facility] Body temperature 2020-09-11 12:55:00 36.33 [facility] Body height 2020-09-09 13:41:00 172.7 cm [facility] Body weight 2020-09-09 13:41:00 101.969 kg [facility] BMI 2020-09-09 13:41:00 34.18 kg/m2 [facility] Systolic blood pressure 2020-07-08 15:47:00 139 mm[Hg] [facility] Diastolic blood pressure 2020-07-08 15:47:00 93 mm[Hg] [facility] Heart rate 2020-07-08 15:47:00 89 /min [facility] Body temperature 2020-07-08 15:47:00 37.28 Kailey [facility] Respiratory rate 2020-07-08 15:47:00 18 /min [facility] Body weight 2020-07-08 15:47:00 106.595 kg [facility] BMI 2020-07-08 15:47:00 35.73 kg/m2 [facility] Oxygen saturation in Arterial blood by Pulse oximetry 2020-07-08 15:47:00 96 /min [facility] Systolic blood pressure 2020-07-08 15:47:00 139 mm[Hg] [facility] Diastolic blood pressure 2020-07-08 15:47:00 93 mm[Hg] [facility] Heart rate 2020-07-08 15:47:00 89 /min [facility] Body temperature 2020-07-08 15:47:00 37.28 Kailey [facility] Respiratory rate 2020-07-08 15:47:00 18 /min [facility] Body weight 2020-07-08 15:47:00 106.595 kg [facility] BMI 2020-07-08 15:47:00 35.73 kg/m2 [facility] Oxygen saturation in Arterial blood by Pulse oximetry 2020-07-08 15:47:00 96 /min [facility] Heart Rate 2023-07-24 10:25:00 59.00 /min Gayatri en F Po Respiratory Rate 2023-07-24 10:25:00 18.00 /min Gerard F Po BP Systolic 2023-07-24 10:25:00 138 mm[Hg] Step hen F Po BP Diastolic 2023-07-24 10:25:00 84 mm[Hg] Joaquín phen F Po Weight Measured 2023-07-24 10:25:00 231.00 pounds Gerard Fontenot Height Measured 2023-07-24 10:25:00 69.00 inches Gerard Fontenot Body Temperature 2023-07-24 10:25:00 97.20 degrees Gerard Fontenot Weight 2023-05-07 20:52:00 [facility] BMI Calculated 2023-05-07 20:52:00 [facility] [place] Systolic (mm Hg) 2023-05-07 20:52:00 [facility] Diastolic (mm Hg) 2023-05-07 20:52:00 [facility] Heart Rate 2023-05-07 20:52:00 [facility] [place] Height 2023-05-07 20:52:00 5 [ft_i] [facility] ia Sam BP Systolic 2020-10-15 11:04:00 153 mm[Hg] Step hen F Po BP Diastolic 2020-10-15 11:04:00 96 mm[Hg] Joaquín phen F Po Weight Measured 2020-10-15 11:04:00 233.40 pounds Gerard Fontenot Height Measured 2020-10-15 11:04:00 69.60 inches Gerard Fontenot Body Temperature 2020-10-15 11:04:00 98.30 degrees Gerardkayla Fontenot Heart Rate 2020-10-15 11:04:00 85.00 /min Gayatri en F Po Respiratory Rate 2020-10-15 11:04:00 17.00 /min Gerard Elizabeth Fontenot Procedures Procedure Date / Time Performed Performing Clinician Source Copper Level 2023-08-11 00:00:00 [facility] C-Reactive Protein 2023-08-11 00:00:00 [facility] Immunofixation (MIGUEL) 2023-08-11 00:00:00 [facility] Sedimentation Rate 2023-08-11 00:00:00 [facility] Vitamin B1 Level 2023-08-11 00:00:00 [facility] Thyroid Stimulating Hormone w/ Reflex Free T4 2023-08-11 00:00:00 [facility] Vitamin B12 Level 2023-08-11 00:00:00 [facility] Vitamin B6 Level 2023-08-11 00:00:00 [facility] Complete Blood Count w/Diff and Platelet 2023-08-11 00:00:00 [facility] Comprehensive Metabolic Panel 2023-08-11 00:00:00 [facility] MRI lumbar spine wo IV contrast 2023-08-11 00:00:00 [facility] XR CHEST 1 VW 2022-06-25 14:26:36 Kamron Chen [facility] XR RIBS 3 VW LEFT 2022-06-25 14:26:36 Kamron Chen [facility] XR SHOULDER 2+ VW LEFT 2022-06-25 14:26:36 Rashawn Chen [facility] ASSIGNMENT OF BENEFITS 2022-06-25 13:28:40 Docto r Unassigned, Eloy [facility] NOTICE OF PRIVACY PRACTICES 2022-06-25 12:48:30 Doctor Unassigned, Eloy [facility] CONSENT/REFUSAL FOR DIAGNOSIS AND TREATMENT 2022-06-25 12:47:21 Doctor Unassigned, Eloy [facility] CONSENT/REFUSAL FOR DIAGNOSIS AND TREATMENT 2022-05-13 17:42:56 Doctor Unassigned, Eloy [facility] CT HEAD WO CONTRAST 2021-12-18 05:33:39 Elena Oleary [facility] BASIC METABOLIC PANEL (NA, K, CL, CO2, GLUCOSE, BUN, CREATININE, CA) 2021-12-18 05:25:00 Elena Oleary [facility] CBC WITH DIFF 2021-12-18 05:25:00 YaElena sloan [facility] CONSENT/REFUSAL FOR DIAGNOSIS AND TREATMENT 2021-12-18 04:39:04 Doctor Unassigned, Eloy [facility] CONSENT/REFUSAL FOR DIAGNOSIS AND TREATMENT 2021-08-31 12:41:11 Doctor Unassigned, Eloy [facility] NOTICE OF PRIVACY PRACTICES 2021-04-15 18:07:40 Doctor Unassigned, Eloy [facility] CONSENT/REFUSAL FOR DIAGNOSIS AND TREATMENT 2021-04-15 18:06:47 Doctor Unassigned, Eloy [facility] EXTERNAL PROVIDER - ADC REFERRAL 2020-10-15 05:01:00 Doctor Unassigned, Eloy [facility] COMP. METABOLIC PANEL ([id number]) 2020-09-11 08:49:00 Kevin Obie [facility] TRANSTHORACIC ECHO (TTE) COMPLETE 2020-09-10 18:08:34 Kvng arnaud [facility] TROPONIN I 2020-09-10 10:19:00 Alyssa Calderon [facility] COMP. METABOLIC PANEL (03806) 2020-09-10 10:19:00 Kevin Adena [facility] TROPONIN I 2020-09-09 23:39:00 [facility] TROPONIN I 2020-09-09 16:26:00 [facility] CT CHEST PULMONARY ANGIOGRAM 2020-09-09 05:58:12 Elena Oleary [facility] LACTATE DEHYDROGENASE 2020-09-09 05:19:00 Crystal Oleary [facility] CBC WITH DIFF 2020-09-09 05:19:00 Elena Oleary [facility] GLYCOSYLATED HEMOGLOBIN (A1C) 2020-09-09 05:19:00 Kevin Obie [facility] PROCALCITONIN 2020-09-09 05:19:00 Elena Oleary [facility] XR CHEST 1 VW 2020-09-09 04:46:12 Elena Oleary [facility] LACTIC ACID WHOLE BLOOD 2020-09-09 04:12:00 Rudy Oleary [facility] BLOOD CULTURE SCREEN 2020-09-09 04:11:00 Hossein Oleary i [facility] FERRITIN SERUM 2020-09-09 04:11:00 [facility] 2020-09-09 04:11:00 Elena Oleary [facility] COMP. METABOLIC PANEL (29905) 2020-09-09 04:11:00 Elena Oleary [facility] D-DIMER 2020-09-09 04:11:00 Elena Oleary [facility] N-TERMINAL PRO-BNP 2020-09-09 04:11:00 Elena Oleary [facility] COVID-19 (ID NOW RAPID TESTING) 2020-09-09 04:11:00 Elena Oleary [facility] LAB ONLY COVID INTERPRETATION 2020-09-09 04:11:00 Elena Oleary [facility] HB ECG ROUTINE & RHYTHM STRIP 2020-09-09 03:52:47 Elena Oleary [facility] CONSENT/REFUSAL FOR DIAGNOSIS AND TREATMENT 2020-09-09 03:18:24 Doctor Unassigned, Eloy [facility] CONSENT/REFUSAL FOR DIAGNOSIS AND TREATMENT 2020-07-08 15:36:15 Doctor Unassigned, Eloy [facility] Encounters Start Date/Time End Date/Time Encounter Type Admission Type Attending Clinicians Care Facility Care Department Encounter ID Source 2020-12-09 22:10:23 Emergency [facility] [id number] [facility] 2023-08-11 08:33:31 2023-08-11 09:25:28 Outpatient Elective BARAK SINGER [facility] [id number] [place] 2023-08-11 08:15:00 2023-08-11 09:25:28 Procedure Visit Barak Singer 1.2.840.114 350.1.13.70 8.2.7.2.686 [id number] Lisa Vargas [facility] 2023-07-24 10:18:45 2023-07-24 10:18:[address] [facility] [id number] Gerard Fontenot 2023-07-24 00:00:00 2023-07-24 00:00:[address] [facility] [id number] Gerard Fontenot 2022-06-25 07:59:00 2022-06-25 10:11:00 Emergency X CHENRASHAWNKAMRON [facility] ERT [id number] [facility] 2022-06-25 07:59:00 2022-06-25 10:11:00 Emergency Gustavo Kamron [facility] 1.2.840.114 350.1.13.10 4.2.7.2.686 [id number] [facility] 2022-05-13 13:31:00 2022-05-13 13:33:00 Emergency X VANGJOSE [facility] ERT [id number] [facility] 2022-05-13 13:31:00 2022-05-13 13:33:00 Emergency Jose Vang [facility] 1.2.840.114 350.1.13.10 4.2.7.2.686 [id number] [facility] 2021-12-17 22:48:00 2021-12-18 00:38:00 Emergency X ELVAYASHOWARD RUDYPADMAJA [facility] ERT [id number] [facility] 2021-12-17 22:48:00 2021-12-18 00:38:00 Emergency ElvaElena sloan [facility] 1.2.840.114 350.1.13.10 4.2.7.2.686 [id number] [facility] 2021-08-31 07:49:00 2021-08-31 08:24:00 Emergency X CELIA ARREAGA [facility] ERT [id number] [facility] 2021-08-31 07:49:00 2021-08-31 08:24:00 Emergency Celia Arreaga [facility] 1.2.840.114 350.1.13.10 4.2.7.2.686 [id number] [facility] 2021-08-23 10:24:00 2021-08-23 10:24:00 Outpatient SAGLIME_JOH N [facility] [id number] [facility] 2021-04-15 12:23:00 2021-04-15 13:45:00 Emergency Jez VANG JOSE [facility] ERT [id number] [facility] 2021-04-15 12:23:00 2021-04-15 13:45:00 Emergency Jose [facility] 1.2.840.114 350.1.13.10 4.2.7.2.686 [id number] [facility] 2021-04-15 00:00:00 2021-04-15 00:00:00 Orders Only Doctor Unassigned, Eloy [facility] 1.2.840.114 350.1.13.10 4.2.7.2.686 [id number] [facility] 2020-10-18 00:00:00 2020-10-18 00:00:00 Letter (Out) Meeta Mcallister [facility] 1.2.840.114 350.1.13.10 4.2.7.2.686 [id number] [facility] 2020-10-15 00:00:00 2020-10-15 00:00:00 Orders Only Doctor Unassigned, Eloy [facility] 1.2.840.114 350.1.13.10 4.2.7.2.686 [id number] [facility] 2020-09-12 00:00:00 2020-09-12 00:00:00 Transition of Care Jasmine Maxwell 1.2.840.114 350.1.13.10 4.2.7.2.686 [id number] [facility] 2020-09-08 22:42:00 2020-09-11 17:37:00 Inpatient X FILIBERTO RICHMOND [facility] HANSEL [id number] [facility] 2020-09-08 22:42:00 2020-09-11 17:37:00 Hospital Encounter AnirudhElena Filiberto Cuadra [facility] 1.2.840.114 350.1.13.10 4.2.7.2.686 [id number] [facility] 2020-07-08 10:49:00 2020-07-08 12:02:00 [facility] 1.2.840.114 350.1.13.10 4.2.7.2.686 [id number] [facility] 2020-07-08 10:49:00 2020-07-08 12:02:00 Emergency Ebnatty [facility] 1.2.840.114 350.1.13.10 4.2.7.2.686 [id number] 2020-03-19 18:02:00 2020-03-19 19:20:00 Emergency X MARY ZUNIGA [facility] ERT [id number] [facility] 2019-02-01 00:37:40 2019-02-01 01:11:00 Emergency X CELIA ARREAGA [facility] ERT [id number] [facility] 2019-01-18 12:47:22 2019-01-18 14:12:00 Emergency X FRANCISCO GHOSH [facility] ERT [id number] [facility] 2016-01-23 00:00:00 2016-01-23 00:00:00 Outpatient R JORDAN OG [facility] SOS [id number] [facility] Results Test Description Test Time Test Comments Results Result Co mments Source Gerard FontenotCOMPREHENSIVE METABOLIC [id number] 00:00:00* Test Item Value Reference Range Interpretation Comme nts GLUCOSE (test code = 2217) 99 MG/DL BUN (test code = 2208) 12 MG/DL CREATININE (test code = 2214) 1.03 MG/DL eGFR AMER. (test cod e = 74371) 104 ML/MIN/1.73 eGFR NON- AMER. (test code = 77680) 90 ML/MIN/1.73 CALC BUN/CREAT (test code = 2235) 12 RATIO SODIUM (test code = 2231) 146 MEQ/L POTASSIUM (test code = 2228) 4.4 MEQ/L CHLORIDE (test code = 2215) 107 MEQ/L CARBON DIOXIDE (test code = 2206) 28 MEQ/L CALCIUM (test code = 2209) 10.0 MG/DL PROTEIN, TOTAL (test code = 2229) 7.4 G/DL ALBUMIN (test code = 2201) 4.5 G/DL CALC GLOBULIN (test code = 2240) 2.9 G/DL CALC A/G RATIO (test code = 2234) 1.6 RATIO BILIRUBIN, TOTAL (test code = 2207) 0.4 MG/DL ALKALINE PHOSPHATASE (test code = 2204) 58 U/L AST (test code = 2218) 25 U/L ALT (test code = 2219) 54 U/L Gerard Johnson PoCBC W/AUTO [id number] 00:00:00* Test Item Value Reference Range Interpretation Comme nts WBC (test code = 1001) 4.2 K/UL RBC (test code = 1002) 5.37 M/UL HEMOGLOBIN (test code = 1003) 14.7 G/DL HEMATOCRIT (test code = 1004) 46.4 % MCV (test code = 1005) 86.4 fL MCH (test code = 1006) 27.4 PG MCHC (test code = 1007) 31.7 G/DL RDW (test code = 1038) 13.7 % NEUTROPHILS (test code = 1008) 30.1 % LYMPHOCYTES (test code = 1010) 53.9 % MONOCYTES (test code = 1011) 11.6 % EOSINOPHILS (test code = 1012) 3.5 % BASOPHILS (test code = 1013) 0.7 % IMMATURE GRANULOCYTES (test code = 1036) 0.2 % NUCLEATED RBCS (test code = 1065) 0.0 /100WBC'S PLATELET COUNT (test code = 1015) 236 K/UL ABSOLUTE NEUTROPHILS (test c ode = 1066) 1.27 K/UL ABSOLUTE LYMPHOCYTES (test c ode = 1067) 2.28 K/UL ABSOLUTE MONOCYTES (test cod e = 1068) 0.49 K/UL ABSOLUTE EOSINOPHILS (test c ode = 1040) 0.15 K/UL ABSOLUTE BASOPHILS (test cod e = 1069) 0.03 K/UL ABS IMMATURE GRANULOCYTES (t est code = 1020) 0.01 K/UL ABS NUCLEATED RBCS (test cod e = 96346) 0.00 K/UL Gerard Johnson Lazaro. METABOLIC PANEL (20367)2020-09-11 11:09:00* Test Item Value Reference Range Interpretation Comme nts NA (test code = 0313169396) 138 mmol/L 135-145 K (test code = 3979854440) 4.3 mmol/L 3.5-5.0 CL (test code = 3013278503) 102 mmol/L 98-108 CO2 TOTAL (test code = 1736346269) 27 mmol/L 23-31 AGAP (test code = 9768387256) 2-16 BUN (test code = 3505346364) 21 mg/dL 7-23 GLUCOSE (test code = 9169610583) 118 mg/dL 70-110 H CREATININE (test code = 5152993580) 0.83 mg/dL 0.60-1.25 TOTAL BILI (test code = 1515242575) 0.6 mg/dL 0.1-1.1 CALCIUM (test code = 2259462567) 9.0 mg/dL 8.6-10.6 T PROTEIN (test code = 6998841698) 6.6 g/dL 6.3-8.2 ALBUMIN (test code = 2636593831) 3.4 g/dL 3.5-5.0 L ALK PHOS (test code = 0911389909) 38 U/L 34-122 ALTv (test code = 1742-6) 67 U/L 5-50 H AST(SGOT) (test code = 0187412417) 52 U/L 13-40 H eGFR (test code = 0017234231) mL/min/1.73m2 ARELI (test code = ARELI) Association [...] imaging tests). Lab Interpretation (test code = 95485-1) [facility] [id number] 22:06:43COVID DMT InterpretationInterpretation/Recommendations:Molecular NAAT Tests for Active [...] longer to develop detectable antibodies, while others infectedwith SARS-CoV-2 may never develop antibodies, particularly those who have had mild or asymptomatic illness. Of note, if the patient has been vaccinated earlier than 1-2 weeks prior to antibody testing, any positive SARS-CoV-2 IgG antibody result is likely due to vaccination. The specific duration and strength of immunity from SARS-CoV-2 IgG antibodies is highly variable between individuals and isdependent on a variety of factors, including infection vs. vaccination response, initial infection s everity, the strength of the patient's own immune system, and the variants to which the patient hasbeen exposed. ? Interpretation Result Comments:These interpretation comments are based upon all COVID-19 testing the patient has had at [facility], including molecular NAAT testing (more commonly known as PCR testing and Rapid ID Now testing) and antibody testing. It does not take into account any testing that a patient has had out side of the [facility] medical record. [facility] LABORATORY SERVICESCOVID [id number] Rapid ID NOW (no units) ? ? Date ? Value ? 09/08/2020 ? Positive (A) ? [facility] LABORATORY SERVICES [facility] WITH [id number] 21:18:20* Test Item Value Reference Range Interpretation Comme nts WBC (test code = 6690-2) See_Comment L [Automated message] The system which generated this result transmitted reference range: 4.20 - 10.70 10*3/?L. The reference range was not used to interpret this result as normal/abnormal. RBC (test code = 789-8) See_Comment [Automated message] The system which generated this result transmitted reference range: 4.26 - 5.52 10*6/?L. The reference range was not used to interpret this result as normal/abnormal. HGB (test code = 718-7) 14.4 g/dL 12.2-16.4 HCT (test code = 4544-3) 45.3 % 38.4-49.3 MCV (test code = 787-2) 88.0 fL 81.7-95.6 MCH (test code = 785-6) 28.0 pg 26.1-32.7 MCHC (test code = 786-4) 31.8 g/dL 31.2-35.0 RDW-SD (test code = 28162-8) 40.1 fL 38.5-51.6 RDW-CV (test code = 788-0) 12.3 % 12.1-15.4 PLT (test code = 777-3) See_Comment [Automated message] The system which generated this result transmitted reference range: 150 - 328 10*3/?L. The reference range was not used to interpret this result as normal/abnormal. MPV (test code = 15933-6) 11.2 fL 9.8-13.0 NRBC/100 WBC (test code = 1838307292) See_Comment [Automated message] The system which generated this result transmitted reference range: 0.0 - 10.0 /100 WBCs. The reference range was not used to interpret this result as normal/abnormal. NRBC x10^3 (test code = 8685727798) <0.01 See_Comment [Automated message] The system which generated this result transmitted reference range: 10*3/?L. The reference range was not used to interpret this result as normal/abnormal. SEG % (test code = 03839-5) 50 % 33-76 BAND % (test code = 68783-1) 4 % 0-1 H LYMPH % (test code = 52423-3) 33 % 14-54 ATYP LYMPH % (test code = 0790422849) 4 % See_Comment H Reviewed by Kayla Dimas M.D., Director of HEMATOPATHOLOGY. [Automated message] The system which generated this result transmitted reference range: <=0. The reference range was not used to interpret this result as normal/abnormal. PLSMACYTD LYMPH % (test code = 25783-1) 1 % See_Comment H [Automated message] The system which generated this result transmitted reference range: <=0. The reference range was not used to interpret this result as normal/abnormal. MONO % (test code = 65738-8) 8 % 0-4 H ARELI (test code = ARELI) Reviewed by Lopez Dimas M.D., Director of HEMATOPATHOLOGY . Lab Interpretation (test code = 07821-9) [facility] (A1C)2020-09-10 14:48:30* Test Item Value Reference Range Interpretation Comme nts HGB A1C (test code = 4548-4) 5.8 % 4.0-5.7 H ARELI (test code = ARELI) Reference RangesNormal: <5.7%Prediabetes: 5.7 - 6.4%Diabetes: > 6.5% Lab Interpretation (test code = 05691-9) Abnormal [facility] [id number] 11:31:01* Test Item Value Reference Range Interpretation Comments TROPONIN I (test code = 4547850218) 0.004 ng/mL See_Comment [Automated message] The system which generated this result transmitted reference range: <=0.034. The reference range was not used to interpret this result as normal/abnormal. ARELI (test code = ARELI) Reference (Normal) Range (defined by the 99th percentile reference [...] patient's use of biotin. Lab Interpretation (test code = 07906-9) Normal [facility]. METABOLIC PANEL (31414)2020-09-10 11:28:40* Test Item Value Reference Range Interpretation Comme nts NA (test code = 5898809683) 137 mmol/L 135-145 K (test code = 1237268567) 4.2 mmol/L 3.5-5.0 CL (test code = 4690864191) 100 mmol/L 98-108 CO2 TOTAL (test code = 3267413118) 31 mmol/L 23-31 AGAP (test code = 7904005397) 2-16 BUN (test code = 4433736877) 19 mg/dL 7-23 GLUCOSE (test code = 2736358292) 147 mg/dL 70-110 H CREATININE (test code = 0807905824) 0.92 mg/dL 0.60-1.25 TOTAL BILI (test code = 4322228082) 0.7 mg/dL 0.1-1.1 CALCIUM (test code = 1983035698) 9.2 mg/dL 8.6-10.6 T PROTEIN (test code = 5754749418) 7.2 g/dL 6.3-8.2 ALBUMIN (test code = 6655091263) 3.6 g/dL 3.5-5.0 ALK PHOS (test code = 3890715733) 35 U/L 34-122 ALTv (test code = 1742-6) 68 U/L 5-50 H AST(SGOT) (test code = 2470124844) 68 U/L 13-40 H eGFR (test code = 6225074771) mL/min/1.73m2 ARELI (test code = ARELI) Association [...] imaging tests). Lab Interpretation (test code = 97903-5) Abnormal [facility]rop[facility] [id number] 00:17:22* Test Item Value Reference Range Interpretation Comments TROPONIN I (test code = 9834544433) 0.002 ng/mL See_Comment [Automated message] The system which generated this result transmitted reference range: <=0.034. The reference range was not used to interpret this result as normal/abnormal. ARELI (test code = ARELI) Reference (Normal) Range (defined by the 99th percentile reference [...] patient's use of biotin. Lab Interpretation (test code = 75452-0) Normal [facility]AL[facility]IN2021-08-01 17:49:43* Test Item Value Reference Range Interpretation Comme nts Procalcitonin (test code = 2278411593) 0.05 ng/mL <0.07 ARELI (test code = ARELI) INTERPRETATION OF [...] lung abscess/empyema. For further information please refer to:[email or web address] Lab Interpretation (test code = 97984-8) Normal [facility]roponin [id number] 17:38:19* Test Item Value Reference Range Interpretation Comments TROPONIN I (test code = 2402798622) 0.003 ng/mL See_Comment [Automated message] The system which generated this result transmitted reference range: <=0.034. The reference range was not used to interpret this result as normal/abnormal. ARELI (test code = ARELI) Reference (Normal) Range (defined by the 99th percentile reference [...] patient's use of biotin. Lab Interpretation (test code = 83560-4) Normal [facility]XR CHEST 1 [id number] 17:21:17Multifocal bilateral airspace opacities suggestive of atypical viralpneumonia such as Covid 19. Preliminary Report Dictated by Resident: Jimmy Hawkins MD., have reviewed this study and agree withthe above report.EXAM: XR CHEST 1 VW COMPARISON: None HISTORY: SOB FINDINGS: Lungs: The lungs are moderately expanded. Multifocal bilateral hazyairspace opacities. No pleural effusion or pneumothorax is seen. Heart/Mediastinum: The cardiomediastinal silhouette is normal insizeaccounting for technique. Bones: No osseous lesions are detected. The soft tissues appear normal [facility], Radiant Results Inft User - 09/09/2020 12:22 PM CDT EXAM: XR CHEST 1 VWCOMPARISON: NoneHISTORY: SOB FINDINGS:Lungs: The lungs are moderately expanded. Multifocal bilateral hazyairspace opacities. No pleural effusion or pneumothorax is seen.Heart/Mediastinum: The cardiomediastinal silhouette is normal in sizeaccounting for technique.Bones: No osseous lesions are detected. The soft tissues appear normalIMPRESSIONMultifocal bilateral airspace opacities suggestive of atypical viralpneumonia such as Covid 19.Preliminary Report Dicta les by Resident: Jimmy Galicia MD., have reviewed this study and agreewiththe above report.[facility] CHEST PULMONARY [id number] 14:45:21Suboptimal evaluation due to due to inadequate opacification [...] subsegmental branches (1:30 7HU). Nofilling defects are seenthrough the pulmonary trunk, main pulmonaryarteries and lobar branches..The pulmonary trunk is normal in caliber. The thoracic aorta is normal in caliber. The heart is normal in size. No pericardial abnormalities are identified.The RV to LV is normal. MEDIASTINUM AND LOWER NECK: No central airway lesions are detected. Theesophagus is within normal limits. The included thyroid gland appearsnormal.LYMPH NODES: No evidence of intrathoracic lymphadenopathy. LUNGS AND PLEURA: Multifocal bilateral gr oundglass opacities.. No pleuralabnormality detected. VISUALIZED UPPER ABDOMEN: The included solid organs and hollow viscusappear within normal limits. OSSEOUS STRUCTURES AND SOFT TISSUES: No focal osseous lesions are detected.The soft tissues appear normal. Superior and inferior sternal bodypseudoarticulation, likely due to unfused ossification centers. [facility], Radiant Results Inft User - 09/09/2020 9:46 AM CDT PROCEDURE: CT CHEST WITH CONTRAST- CHEST PE PROTOCOLCLINICAL INDICATION: PE suspected, intermediate prob, positive [...] segmental and subsegmental branches (1:30 7HU). Nofilling defectsare seen through the pulmonary trunk, main pulmonaryarteries [...] atypical viral pneumoniasuch as Covid 19.Preliminary Report Dic tated by Resident: Joann Conti, Jimmy Alba MD., have reviewed this study and agree withthe above report.[facility] FERRITIN [id number] 05:47:56* Test Item Value Reference Range Interpretation Comme nts FERRITIN (test code = 4492743518) 556.0 ng/mL 18.0-464.0 H ARELI (test code = ARELI) Biotin has been reported to cause a negative bias, interpret results relative to patient's use of biotin. Lab Interpretation (test code = 73834-9) Abnormal [facility]ennialLACTATE [id number] 05:46:16* Test Item Value Reference Range Interpretation Comme nts LDH (test code = 9225923114) 1659 U/L 300-600 H Lab Interpretation (test cod e = 72383-5) Abnormal [facility] METABOLIC PANEL (49838)2020-09-09 05:14:14* Test Item Value Reference Range Interpretation Comme nts NA (test code = 2435865816) 140 mmol/L 135-145 K (test code = 0840069590) 3.8 mmol/L 3.5-5.0 CL (test code = 0870665761) 98 mmol/L 98-108 CO2 TOTAL (test code = 8837678278) 35 mmol/L 23-31 H AGAP (test code = 8182631456) 2-16 BUN (test code = 3139530963) 16 mg/dL 7-23 GLUCOSE (test code = 2627686438) 105 mg/dL 70-110 CREATININE (test code = 2169723999) 1.08 mg/dL 0.60-1.25 TOTAL BILI (test code = 9595255428) 0.8 mg/dL 0.1-1.1 CALCIUM (test code = 4088511195) 9.2 mg/dL 8.6-10.6 T PROTEIN (test code = 0136653196) 7.8 g/dL 6.3-8.2 ALBUMIN (test code = 5683160289) 4.0 g/dL 3.5-5.0 ALK PHOS (test code = 3744559350) 46 U/L 34-122 ALTv (test code = 1742-6) 79 U/L 5-50 H AST(SGOT) (test code = 3859154447) 109 U/L 13-40 H eGFR (test code = 3171048131) mL/min/1.73m2 ARELI (test code = ARELI) Association [...] imaging tests). Lab Interpretation (test code = 09814-1) Abnormal [facility]ennialGERBER [id number] 04:58:10* Test Item Value Reference Range Interpretation Comments TROPONIN I (test code = 3807658481) 0.007 ng/mL See_Comment [Automated message] The system which generated this result transmitted reference range: <=0.034. The reference range was not used to interpret this result as normal/abnormal. ARELI (test code = ARELI) Reference (Normal) Range (defined by the 99th percentile reference [...] patient's use of biotin. Lab Interpretation (test code = 91301-6) Normal [facility]ennialN-TERMINAL [id number] 04:54:50* Test Item Value Reference Range Interpretation Comme nts NT-proBNP (test code = 0887522049) 52 pg/mL See_Comment [Automated message] The system which generated this result transmitted reference range: <=125. The reference range was not used to interpret this result as normal/abnormal. ARELI (test code = ARELI) Biotin has been reported to cause a negative bias, interpret results relative to patient's use of biotin. Lab Interpretation (test code = 19618-7) Normal [facility] CentennialD-[id number] 04:43:30* Test Item Value Reference Range Interpretation Comments D-DIMER (test code = 3874429603) See_Comment H [Automated message] The system which generated this result transmitted reference range: <0.41 ?g/mL (FEU). The reference range was not used to interpret this result as normal/abnormal. ARELI (test code = ARELI) This test may be used in conjunction with a clinical pretest [...] context, in forming a diagnosis. Lab Interpretation (test code = 06915-1) [facility]normal [facility] RAPID TESTING)2020-09-09 04:41:49* Test Item Value Reference Range Interpretation Comme nts SARS-CoV-2 Rapid ID NOW (test code = 29522-7) Positive Not Detected A ARELI (test code = ARELI) ID NOW COVID-19 As say is an isothermal nucleic acid amplification test intended for the qualitative detection of nucleic acid from SARS-CoV-2 viral RNA in nasopharyngeal (WET WHEELER) specimens. It is used under Emergency Use [...] patient testing if clinically indicated. Lab Interpretation (test code = 90272-7) Abnormal [facility] Whole [id number] 04:23:08* Test Item Value Reference Range Interpretation Comme nts LACTIC ACID (test code = 4178664516) 1.12 mmol/L 0.50-2.20 Lab Interpretation (test cod e = 36804-8) Normal [facility] Notes Date/Time Note Provider Source Referral ID Status Reason Start Date Expiration Date V isits Requested Visits Authorized [id number] Pending Review 08/11/2023 02/07/2024 1 1 [facility]in [id number] 09:35:47* * Consultation (Routine) - Closed Specialty Diagnoses / Procedures Referred By Bryan t Referred To Contact Neurology Diagnoses Radiculopathy, lumbar region Arthrodesis status Paresthesia of skin Procedures [facility] [address] [place] [address] Jordan Tijerina [address] [place] [address] Referral ID Status Reason Start Date Expiration Date Visits Re quested Visits Authorized [id number] Closed 08/10/2023 02/06/[address] [facility] 09:35:47 [facility]75[facility]12 09:35:47* Barak Singer MD - 08/11/2023 8:15 AM CDT Patient ID: Lawrence Bennett is a 43 y.o. male. Back Pain This is a chronic problem. The current episode started more than 1 year ago. The problem occurs constantly. The problem has been waxing and waning since onset. EMG was normal, NCV demonstrated a neuropathy. Plain film lumbar spine was unremarkable. Plain film left ankle mild chronic posttraumatic changes. Did not have labs. Has tried gabapentin in the past, not helpful. Try Trileptal. Check labs. MRI lumbar spine given the refractory nature of the problem. Allergies as of 08/11/2023 - Reviewed 08/11/2023 Allergen Reaction Noted Penicillins Hives, Rash, and Shortness of breath 03/09/2006 has a current medication list which includes the following prescription(s): oxcarbazepine. Answers submitted by the patient for this visit: Review of Systems (Submitted on 08/11/2023) Back pain: Yes Muscle aches: Yes Other muscle or joint symptoms: Leg and foot pain Vitals:08/11/23 0847 BP: 145/84 Pulse: 82 Resp: 16 Temp: 36.4 ?C (97.6 ?F) SpO2: 96% Neurological Exam Mental Status Awake and alert. Speech is normal. Cranial NervesCN II: Visual acuity is normal. CN III, IV, : Extraocular movements intact bilaterally. Pupils equal round and reactive to light bilaterally. CN VII: Full and symmetric facial movement. CN XII: Tongue midline without atrophy or fasciculations. MotorStrength is 5/5 throughout all four extremities. SensoryLight touch is normal in upper and lower extremities. Temperature is normal in upper and lower extremities. Vibration is normal in upper and lower extremities. ReflexesDeep tendon reflexes: Symmetric. GaitCasual gait is normal including stance, stride, and arm swing. No results found for this or any previous visit. No MRI head results found for the past 12 months Assessment & PlanLumbar radiculopathy Orders:Copper Level; Future C-Reactive Protein; Future Immunofixation (MIGUEL); Future Sedimentation Rate; Future Vitamin B1 Level; Future Thyroid Stimulating Hormone w/ Reflex Free T4; Future Vitamin B12 Level; Future Vitamin B6 Level; Future Complete Blood Count w/Diff and Platelet; Future Comprehensive Metabolic Panel; Future OXcarbazepine (Trileptal) 150 MG tablet; Take 1 tablet by mouth at bedtime. MRI lumbar spine wo IV contrast; Future Paresthesia Orders:Copper Level; Future C-Reactive Protein; Future Immunofixation (MIGUEL); Future Sedimentation Rate; Future Vitamin B1 Level; Future Thyroid Stimulating Hormone w/ Reflex Free T4; Future Vitamin B12 Level; Future Vitamin B6 Level; Future Complete Blood Count w/Diff and Platelet; Future Comprehensive Metabolic Panel; Future OXcarbazepine (Trileptal) 150 MG tablet; Take 1 tablet by mouth at bedtime. MRI lumbar spine wo IV contrast; Future Check labs, MRI lumbar spine, add Trileptal 150 mg at night. Risks, benefits, side effects reviewed with patient. * Barak Singer MD - 08/11/2023 8:15 AM CDT Patient ID: Lawrence Bennett is a 43 y.o. male. Procedures Neurodiagnostic studies Indication: Paresthesias, lumbar radiculopathy Nerve conduction study of left lower extremity Motor studies The peroneal nerve demonstrates prolonged latency at 6.2 ms, depressed amplitude at 1.5 mV at the ankle and 1.9 mV above the knee. Conduction velocity is normal at 46.8 m/s. The tibial nerve demonstrates normal latency at 5.6 ms, depressed amplitude at 3.1 mV and normal conduction velocity at 42.7 m/s. Sensory studies The sural nerve demonstrates prolonged latency at 4.6 ms and depressed amplitude at 3.3 ?V. Interpretation Most consistent with mild sensorimotor neuropathy, primarily axonal. Electromyogram of left lower extremity In the vastus medialis, tibialis anterior, medial and lateral gastrocnemius and extensor digitorum brevis insertional activity was normal. There was no abnormal resting activity. Voluntary contraction demonstrated normal recruitment and a full interference pattern. Motor unit size and duration was normal. Interpretation [facility]47Upcoming Encounters Scheduled Orders Name Type Priority Associated Diagnoses Orde r Schedule Copper Level Lab Routine Lumbar radiculopathy Paresthesia Expected: 08/11/2023 (Approximate), Expires: 08/10/2024 C-Reactive Protein Lab Routine Lumbar radiculopathy Paresthesia Expected: 08/11/2023 (Approximate), Expires: 08/10/2024 Immunofixation (MIGUEL) Lab Routine Lumbar radiculopathy Paresthesia Expected: 08/11/2023 (Approximate), Expires: 08/10/2024 Sedimentation Rate Lab Routine Lumbar radiculopathy Paresthesia Expected: 08/11/2023 (Approximate), Expires: 08/10/2024 Vitamin B1 Level Lab Routine Lumbar radiculopathy Paresthesia Expected: 08/11/2023 (Approximate), Expires: 08/10/2024 Thyroid Stimulating Hormone w/ Reflex Free T4 Lab Routine Lumbar radiculopathy Paresthesia Expected: 08/11/2023 (Approximate), Expires: 08/10/2024 Vitamin B12 Level Lab Routine Lumbar radiculopathy Paresthesia Expected: 08/11/2023 (Approximate), Expires: 08/10/2024 Vitamin B6 Level Lab Routine Lumbar radiculopathy Paresthesia Expected: 08/11/2023 (Approximate), Expires: 08/10/2024 Complete Blood Count w/Diff and Platelet Lab Routine Lumbar radiculopathy Paresthesia Expected: 08/11/2023 (Approximate), Expires: 08/10/2024 Comprehensive Metabolic Panel Lab Routine Lumbar radiculopathy Paresthesia Expected: 08/11/2023 (Approximate), Expires: 08/10/2024 MRI lumbar spine wo IV contrast Imaging Routine Lumbar radiculopathy Paresthesia Expected: 08/11/2023, Expires: 08/10/2024 Health Maintenance Due Date Last Done Comments Lipid Panel 1980 Pneumococcal Vaccine: Pediat rics (0 to 5 Years) and At-Risk Patients (6 to 64 Years) (1 of 2 - PCV) 1985 Hepatitis B Vaccines (1 of 3 - 19+ 3-dose series) 1998 DTaP/Tdap/Td Vaccines (1 - Tdap) 09/01/2021 09/01/19 22 Influenza Vaccine (#1) 2023 HIB Vaccines Aged Out No longer eligi ble based on patient's age to complete this topic HPV Vaccines Aged Out No longer eligi ble based on patient's age to complete this topic Hepatitis A Vaccines Aged Out No long er eligible based on patient's age to complete this topic IPV Vaccines Aged Out No longer eligi ble based on patient's age to complete this topic Meningococcal Vaccine Aged Out No marcelo luc eligible based on patient's age to complete this topic Rotavirus Vaccines Aged Out No longer eligible based on patient's age to complete this topic [facility] [id number] 09:35:47 Diagnosis Lumbar radiculopathy - Primary Thoracic or lumbosacral neuritis or radiculitis, unspecified Paresthesia Disturbance of skin sensation [facility] [id number] 09:35:47 [facility] AustinRdgfbvt2912-99-38 00:00:00 Gerard Grove [facility]
[2024-06-30] MEDS ORDERED: METHYLPREDNISOLONE 125 MG INJ ONE (20:27)
[2024-06-30] MEDS ORDERED: DIPHENHYDRAMINE 50 MG/ML VIAL ONE (20:27)
--- NOTE | 2024-06-30 21:07 | ER ---
Nurse's Notes [facility] Name: Lawrence Orellana Age: 44 yrs Sex: Male : 1980 Arrival Date: 06/30/2024 Time: 19:35 Bed IW9 Private MD: Diagnosis: Rash and other nonspecific skin eruption Presentation: 06/30 19:40 Chief complaint: Patient states: RASH ON MY ARMS, FACE, AND NECK FOR THE PAST TWO TO ha1 THREE DAYS. 19:40 Coronavirus screen: Client denies travel out of the [place] in the last 14 days. Ebola ha1 Screen: No symptoms or risks identified at this time. Initial Sepsis Screen: Does the patient meet any 2 criteria? No. Patient's initial sepsis screen is negative. Does the patient have a suspected source of infection? No. Patient's initial sepsis screen is negative. Risk Assessment: Do you want to hurt yourself or someone else? Patient reports no desire to harm self or others. Onset of symptoms was June 27, 2024. 19:40 Method Of Arrival: Ambulatory ha1 19:40 Acuity: NEHA 4 ha1 Triage Assessment: 19:49 General: Appears uncomfortable, Behavior is calm, cooperative. Pain: Denies pain. ha1 Neuro: Level of Consciousness is awake, alert, obeys commands, Oriented to person, place, time, situation. Respiratory: Airway is patent Respiratory effort is even, unlabored, Respiratory pattern is regular, symmetrical. Derm: Skin is normal, Reports itching, FACE, NECK, AND ARMS. Historical: - Allergies: 19:49 PENICILLINS; ha1 - PMHx: 19:49 None; ha1 - Immunization history:: Adult Immunizations not up to date. - Infectious Disease History:: Denies. - Social history:: Smoking status: Patient reports use of chewing tobacco. Screenin:06 [facility] ED Fall Risk Assessment (Adult) History of falling in the last 3 months, cp4 including since admission No falls in past 3 months (0 pts) Confusion or Disorientation No (0 pts) Intoxicated or Sedated No (0 pts) Impaired Gait No (0 pts) Mobility Assist Device Used No (0 pt) Altered Elimination No (0 pt) Score/Fall Risk Level 0 - 2 = Low Risk Oriented to surroundings, Maintained a safe environment, Assessed \T\ reinforced patient's understanding of fall precautions, Hourly rounding (assess needs \T\ fall precautionary measures) done. Abuse screen: Denies threats or abuse. Denies injuries from another. Nutritional screening: No deficits noted. Tuberculosis screening: No symptoms or risk factors identified. Never had TB. Assessment: 21:06 General: Appears in no apparent distress. uncomfortable, Behavior is calm, cooperative, cp4 appropriate for age. Pain: Denies pain. Neuro: Level of Consciousness is awake, alert, obeys commands, Oriented to person, place, time, situation. Cardiovascular: Patient's skin is warm and dry. Respiratory: Airway is patent Respiratory effort is even, unlabored. GI: No signs and/or symptoms were reported involving the gastrointestinal system. : No signs and/or symptoms were reported regarding the genitourinary system. EENT: No signs and/or symptoms were reported regarding the EENT system. Derm: Reports rash to upper body and face. Musculoskeletal: No signs and/or symptoms reported regarding the musculoskeletal system. Vital Signs: 19:40 BP 144 / 98; Pulse 85; Resp 17 S; Temp 97(O); Pulse Ox 97% on R/A; Weight 97.52 kg; ha1 Height 5 ft. 9 in. ; 21:07 BP 132 / 82; Pulse 76; Resp 18; Pulse Ox 100% ; cp4 19:40 Body Mass Index 31.75 (97.52 kg, 175.26 cm) ha1 ED Course: 19:44 Patient arrived in ED. ha1 19:45 Amber Shah [facility]C [facility] sb4 19:45 Serge Duarte MD is Attending Physician. sb4 19:49 Triage completed. ha1 19:55 Marlee Davis is Primary Nurse. cp4 21:06 Bed in low position. Call light in reach. Side rails up X 1. cp4 21:06 No provider procedures requiring assistance completed. Patient did not have IV access cp4 during this emergency room visit. 21:24 Provided Education on: rash. cp4 21:25 Arm band placed on right wrist. Patient placed in waiting room. cp4 Administered Medications: 20:25 CANCELLED (Physician Discretion): ns 0.9% 1000 ml IV at 1000 ml once; to be given as a sb4 bolus over 60 minutes 20:25 CANCELLED (Physician Discretion): mg IVP once; dilute with 10 mL 0.9% sb4 NaCl; give over 2 minutes 20:32 Drug: MethylPrednisoLONE IVP 80 mg IVP once {Note: Left Deltoid IM per provider.} cp4 Route: IVP; Site: Other; 21:08 Follow up: Response: No adverse reaction cp4 20:32 Drug: diphenhydrAMINE IVP 25 mg IVP once {Note: Right deltoid IM per provider.} Route: cp4 IVP; Site: Other; 21:08 Follow up: Response: No adverse reaction cp4 Medication: 21:06 VIS not applicable for this client. cp4 Outcome: 21:06 Discharge ordered by . sb4 21:24 Discharged to home ambulatory, cp4 21:24 Condition: stable 21:24 Discharge instructions given to patient, family, Instructed on discharge instructions, follow up and referral plans. Demonstrated understanding of instructions, follow-up care, 21:25 Patient left the ED. cp4 Signatures: Melissa Valdivia RN RN ha1 Amber Shah PA-C PA-C sbMarlee Washington cp4
--- NOTE | 2024-06-30 21:07 | EDPHYS ---
Physician Documentation [facility] Name: Lawrence Orellana Age: 44 yrs Sex: Male : 1980 Arrival Date: 06/30/2024 Time: 19:35 Bed IW9 Private MD: ED Physician Serge Duarte HPI: 06/30 23:53 This 44 yrs old Black Male presents to ER via Ambulatory with complaints of Allergic sb4 Reaction. 23:53 The patient presents with rash, of the face, right arm, left arm and neck. Onset: The sb4 symptoms/episode began/occurred 3 day(s) ago. Associated signs and symptoms: Pertinent positives: rash, Pertinent negatives: abdominal pain, chest pain, dysphagia, fever, headache, hives, Light headed nausea, shortness of breath, swelling, Syncope vomiting. Possible causes: sun. At home the patient or guardian has treated the symptoms with cortisone crema. Historical: - Allergies: 19:49 PENICILLINS; ha1 - PMHx: 19:49 None; ha1 - Immunization history:: Adult Immunizations not up to date. - Infectious Disease History:: Denies. - Social history:: Smoking status: Patient reports use of chewing tobacco. ROS: 07/01 00:09 Constitutional: Negative for fever, chills, and weight loss, sb4 Skin: Positive for rash, All other systems are negative, Exam: 00:09 Constitutional: This is a well developed, well nourished patient who is awake, alert, sb4 and in no acute distress. 00:09 Eyes: Extra-ocular motions intact. Periorbital areas with no swelling, redness, or edema. ENT: Mucous membranes moist. Cardiovascular: Regular rate and rhythm with a normal S1 and S2. Respiratory: No increased work of breathing, no retractions or nasal flaring. Psych: Awake, alert, with orientation to person, place and time. Behavior, mood, and affect are within normal limits. 00:09 Head/face: Noted is swelling, that is moderate, of the diffusely, 00:09 Skin: rash a mild rash is noted, rash can be described as macular, nonspecific, raised, on the neck and left arm and right arm and face, Vital Signs: 06/30 19:40 BP 144 / 98; Pulse 85; Resp 17 S; Temp 97(O); Pulse Ox 97% on R/A; Weight 97.52 kg; ha1 Height 5 ft. 9 in. ; 21:07 BP 132 / 82; Pulse 76; Resp 18; Pulse Ox 100% ; cp4 19:40 Body Mass Index 31.75 (97.52 kg, 175.26 cm) ha1 MDM: 19:45 Medical Screening Exam initiated sb4 07/01 00:09 Differential diagnosis: anaphylaxis, angioedema, Status Asthmaticus urticaria. Data sb4 reviewed: vital signs, nurses notes, and as a result, I will discharge patient. Counseling: I had a detailed discussion with the patient and/or guardian regarding the historical points, exam findings, and any diagnostic results supporting the discharge/admit diagnosis, the need for outpatient follow up, for definitive care, to return to the emergency department if symptoms worsen or persist or if there are any questions or concerns that arise at home. Administered Medications: 06/30 20:25 CANCELLED (Physician Discretion): ns 0.9% 1000 ml IV at 1000 ml once; to be given as a sb4 bolus over 60 minutes 20:25 CANCELLED (Physician Discretion): [id number] mg IVP once; dilute with 10 mL 0.9% sb4 NaCl; give over 2 minutes 20:32 Drug: MethylPrednisoLONE IVP 80 mg IVP once {Note: Left Deltoid IM per provider.} cp4 Route: IVP; Site: Other; 21:08 Follow up: Response: No adverse reaction cp4 20:32 Drug: diphenhydrAMINE IVP 25 mg IVP once {Note: Right deltoid IM per provider.} Route: cp4 IVP; Site: Other; 21:08 Follow up: Response: No adverse reaction cp4 Disposition Summary: 06/30/24 21:06 Discharge Ordered Notes: Location: Home sb4 Problem: new sb4 Symptoms: have improved sb4 Condition: Stable sb4 Diagnosis - Rash and other nonspecific skin eruption sb4 Followup: sb4 - With: Private Physician - When: 1 week - Reason: Recheck today's complaints, Re-evaluation by your physician Discharge Instructions: - Discharge Summary Sheet sb4 - Rash, Adult, [id number] sb4 Forms: - Patient Portal Instructions sb4 - Leadership Thank You Letter sb4 Prescriptions: - Pepcid 20 mg Oral Tablet - take 1 tablet ORAL route every 12 hours for 5 days; 10 tablet; Refills: 0, sb4 Product Selection Permitted - Prednisone 20 mg Oral Tablet - take 1 tablet ORAL route once daily for 5 days; 5 tablet; Refills: 0, Product sb4 Selection Permitted - Loratadine 10 mg Oral Tablet - take 1 tablet ORAL route once daily; 14 tablet; Refills: 0, Product Selection sb4 Permitted Addendum: 07/04/2024 12:31 Co-signature as Attending Physician, Serge Duarte MD I agree with the assessment and c conteh plan of care. Signatures: Serge Duarte MD MD cha Ayala, Heidy, RN RN ha1 Amber Shah, PAKingC PA-C sb4 Marlee Davis cp4 Corrections: (The following items were deleted from the chart) 06/30 20:25 19:46 IV Saline Lock ordered. sb4 cp4 20: 19:46 NS 0.9% IV 1000 ml IV at 1000 ml once; to be given as a bolus over 60 minutes sb4 ordered. sb4 20: 19:46 Famotidine IVP 20 mg IVP once; dilute with 10 mL 0.9% NaCl; give over 2 minutes sb4 ordered. sb4
== END 2024-06-30 21:25 | disposition home or self-care (01) ==
LOC: ER 19:35
DX: R21 Rash and other nonspecific skin eruption (principal)
CPT/HCPCS: 96374; 96375; 99284; J1200; J2919